=== PATIENT | female | born 1935 | race Caucasian/White ===

== ENCOUNTER → 2016-12-13 | Day surgery (SDC) | payer OTHER ==
[2016-10-25 09:27] VITALS: BMI 36.0
[2016-11-29 09:02] VITALS: BMI 36.0
[~2016-12-13] VITALS: Ht 157.5 cm; Wt 80.5 kg
[~2016-12-13] MED LIST: ACET325T96 PO; ALLO100T PO; APR/25 PO; BELLADONNA/OPIUM 60 MG SUPP PR ONE; BELLADONNA/OPIUM SUPP 60 MG SUPP PR ONE; BISA10SU5 RE; CALCTAB7 PO; CITA10TA4 PO; CRAN1CAP15 PO; DEXAMETHASONE SOD INJ 4 MG/ML VIAL ONE; DOCU-94 PO; FENTANYL CITRATE INJ 50 MCG/1 ML 2 ML VIAL IV PRN; FENTANYL CITRATE INJ 50 MCG/1 ML 2 ML VIAL ONE; FURO-85 PO; GENTAMICIN INJ 320 MG in DEXTROSE 5% 100ML 100 ML IV SCH; GLIP5TAB11 PO; LACTATED RINGER'S 1000ML 1,000 ML IV PRN; LACTATED RINGER'S 1000ML 1,000 ML IV SCH; LIDOCAINE HCL 2% 2 ML VIAL (20MG/ML) ONE; LSN20 PO; MAGN400T5 PO; MENTOIN TOP; METO-551 PO; MIDAZOLAM HCL 1 MG/ML 2ML VIAL ONE; ONDANSETRON INJ 2 MG/ML 2 ML VIAL IV PRN; ONDANSETRON INJ 2 MG/ML 2 ML VIAL ONE; OXGN; OXYC1CAP5 PO; PANT40TA PO; PHEN-775 PO; PROPOFOL IV EMULSION 10 MG/ML 20 ML VIAL IV ONE; RRALBUT083 INH; TAMS0.4C38 PO; VANCOMYCIN INJ 1,250 MG in SODIUM CHLORIDE 0.9% 250ML 250 ML IV SCH
[2016-12-13 07:56] VITALS: BP 140/68; PULSE 76; TEMP 37.1; O2SAT 93; Ht 157.5 cm; Wt 80.5 kg
--- NOTE | 2016-12-13 09:08 | History & Physical Bridge Note ---
H&P Re-Evaluation Bridge Note: I have examined the patient, reviewed the History & Physical and in the interval since the performance of the History & Physical I have noted the following changes of clinical significance: No changes noted
--- NOTE | 2016-12-13 10:57 | [facility] Operative Report ---
Operative Report Operative Date Dec 13, 2016. Pre-Operative Diagnosis Infected right renal stones with history of sepsis Post-Operative Diagnosis same Procedure(s) Performed cysto, right ureteroscopy laser lithotripsy basket stone extraction stent exchange Surgeon Dr. Tsering Royal All Source Collection Manager Surgeon(s) None Estimated Blood Loss 1mL Findings faintly radio-opaque very soft renal stones Fluids 500mL Specimens Permanent specimens A: Right renal stone fragments for analysis Drains 6 fr 24 centimeter double J stent Anesthesia LMA Complication(s) None Disposition Recovery Room / PACU Indications episodes of recurring sepsis from infected right renal stones Description of Procedure Patient was given general anesthesia (LMA) and placed in lithotomy position. Her genitals were prepped and draped in sterile fashion. Time out held with team. I placed a 22 fr rigid cystoscope to bladder. She has moderate cystocele. The urethra is unremarkable. The urine is cloudy consistent with her chronic infection. The stent is lightly encrusted and darkly stained. The UOs are normal. I grasped stent tip and withdrew to meatus. I amputated the distal 4 inches and passed a stiff wire up the stent to the right kidney. I removed stent and found it to be completely removed. I then placed a dual lumen and a second wire. I placed a 12/14 28 centimeter ureteral access sheath easily. I then used a flexible ureteroscope to laser the renal stones into dust. They were very soft consistent with infection stone. 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 I slowly withdrew scope and sheath and found ureter to be stone free and uninjured. I placed a 24 centimeter 6 Fr double J stent easily. I left bladder empty and concluded case. I placed a belladonna and opium suppository for post-op pain. He transferred to recovery under my escort, in stable condition. 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 Any exceptions are noted below.
--- NOTE | 2016-12-13 11:01 | Discharge Instructions ---
Discharge Instructions Date of Service Dec 13, 2016. Admission Reason for Admission: Kidney Stone and infection Discharge Discharge Diagnosis / Problem: infected right kidney stones Discharge Goals Goal(s): Improve disease control Activity Recommendations Activity Limitations: resume your previous activity Lifting Limitations: none Exercise/Sports Limitations: none Shower/Bathe: no limitations Driving or Machine Use: resume 1 day after discharge . Instructions / Follow-Up Instructions / Follow-Up urine may be bloody for several days pain at the right kidney and at the bladder is to be expected stent will be removed in about one week at [facility] office Discharge Diet Recommended Diet: Diabetes Type 2 Diet Fluid Restriction: None Procedures Procedures Performed: Cystoscopy, Right Ureteroscopy, Laser Lithotripsy - Basket Stone Extraction; Stent Exchange Pending Studies Studies pending at discharge: no Medical Emergencies . Who to Call and When: Medical Emergencies: If at any time you feel your situation is an emergency, please call 911 immediately. . Non-Emergent Contact Non-Emergency issues call your: Urologist ([phone]) Call Non-Emergent contact if: temperature is above 100.5 . . "Provider Documentation" section prepared by Tsering Royal. VTE Core Measure Inpt VTE Proph given/why not?: SCD's [place] Drug Monitoring Program Search Results: patient reviewed within database, no issues identified
--- NOTE | 2016-12-13 11:18 | DIAGNOSTIC IMAGING REPORT ---
KUB HISTORY: RIGHT LASER LITHOTRIPSY STENT FLUOROSCOPY TIME: 19 seconds. FINDINGS: 3 fluoroscopic spot images were submitted for review. Initial images demonstrate a guidewire within the proximal right ureter. The final image demonstrates the distal aspect of the right ureteral stent which appears be in good position. IMPRESSION: Fluoroscopy provided for right ureteral stent placement.. Electronically signed by: Bebeto Layton M.D. 12/13/2016 11:16 AM Dictated Date/Time: 12/13/2016 11:15 AM
--- NOTE | 2016-12-13 11:29 | Anesthesiology Progress Note ---
Anesthesia Post Op Note Date & Time Dec 13, 2016 at 11:29 Vital Signs Pain Intensity: 0 Vital Signs Past 12 Hours Date Time Temp Pulse Resp B/P Pulse Ox O2 Delivery O2 Flow Rate FiO2 12/13/16 11:15 81 24 126/60 99 Mask 10 12/13/16 11:05 82 24 147/70 98 Mask 10 12/13/16 10:55 36.8 81 20 147/85 98 Mask 10 12/13/16 07:56 37.1 76 22 140/68 93 Room Air Notes Mental Status: alert / awake / arousable, participated in evaluation Pt Amnestic to Procedure: Yes Nausea / Vomiting: adequately controlled Pain: adequately controlled Airway Patency, RR, SpO2: stable & adequate BP & HR: stable & adequate Hydration State: stable & adequate Anesthetic Complications: no major complications apparent Pt doing well.
[2016-12-13 11:43] VITALS: BP 121/60; PULSE 84; TEMP 36.6; O2SAT 93
[2016-12-13 12:15] VITALS: BP 116/49; PULSE 85; TEMP 36.4; O2SAT 94
[2016-12-13 12:45] VITALS: BP 98/55; PULSE 86; TEMP 36.8; O2SAT 93
== END | disposition home or self-care (01) ==
LOC: C.ACU 07:32
PROVIDERS: ATTEND Urology
DX: N20.0 Calculus of kidney (principal); N81.10 Cystocele, unspecified; N39.0 Urinary tract infection, site not specified; I12.9 Hypertensive chronic kidney disease with stage 1 through stage 4 chronic kidney disease, or unspecified chronic kidney disease; N18.3 Chronic kidney disease, stage 3 (moderate); M81.0 Age-related osteoporosis without current pathological fracture; E11.9 Type 2 diabetes mellitus without complications; R26.9 Unspecified abnormalities of gait and mobility; F33.41 Major depressive disorder, recurrent, in partial remission; Z98.890 Other specified postprocedural states

== ENCOUNTER 2018-11-12 20:24 | Inpatient (IN) ==
[2018-11-12 21:38] LABS: Basophils # (auto) 0.04 K/uL (0-0.2); Basophils % (auto) 0.2 %; Eosinophils # (auto) 0.06 K/uL (0-0.5); Eosinophils % (auto) 0.4 %; Hematocrit (blood only) 36.1 % (37-47); Hemoglobin 11.2 g/dL (12.0-16.0); Immature Granulocytes # (auto) 0.09 K/uL (0.00-0.02); Immature Granulocytes % (auto) 0.5 %; Lymphocytes % (auto) 7.7 %; Mean Corpuscular Volume 116.1 fL (80-100); Mean Platelet Volume 11.5 fL (7.4-10.4); Monocytes # (auto) 0.82 K/uL (0.11-0.59); Monocytes % (auto) 4.9 %; Neutrophils # (auto) 14.59 K/uL (1.4-6.5); Neutrophils % (auto) 86.3 %; Platelet Count 258 K/uL (130-400); RDW Coefficient of Variation 15.4 % (11.5-14.5); RDW Standard Deviation 65.3 fL (36.4-46.3); Red Blood Count 3.11 M/uL (4.2-5.4)
[2018-11-12 22:01] LABS: Alanine Aminotransferase 51 U/L (12-78); Albumin Level 3.3 gm/dl (3.4-5.0); Aspartate Aminotransferase 29 U/L (15-37); BUN Creatinine Ratio 27.4 (10-20); Blood Urea Nitrogen 53 mg/dl (7-18); Calcium 9.6 mg/dl (8.5-10.1); Carbon Dioxide 23 mmol/L (21-32); Chloride 111 mmol/L (98-107); Creatinine Clr Calc Pharmacy 23.8 ml/min; Est GFR (African American) 26.9; Est GFR (Non-African American) 23.2; Glucose 145 mg/dl (70-99); Potassium 5.2 mmol/L (3.5-5.1); Sodium 141 mmol/L (136-145)
--- NOTE | 2018-11-12 22:05 | CT Scan Report ---
CT head/brain wo con CT DOSE: HISTORY: Trauma fall TECHNIQUE: Multiaxial CT images of the head were performed without the use of intravenous contrast. A dose lowering technique was utilized adhering to the principles of ALARA. Comparison: 02/22/2015 Findings: The paranasal sinuses and mastoid air cells are clear. The calvarium and skull base are int act. The ventricles and sulci are within normal limits. There is no mass, hematoma, midline shift, or acute infarct. Age-related atrophy and chronic small vessel change. Impression: Age-related change. No acute process. The above report was generated using voice recognition software. It may contain grammatical, syntax or spelling errors. Electronically signed by: Veto Conley M.D. 11/12/2018 10:03 PM
--- NOTE | 2018-11-12 22:07 | CT Scan Report ---
CT cervical spine wo con CT DOSE: HISTORY: Trauma fall TECHNIQUE: Multiaxial CT images of the cervical spine were performed and reformatted in the sagittal and coronal plane without the use of contrast. A dose lowering technique was utilized adhering to th e principles of ALARA. COMPARISON: None. FINDINGS: Severe degenerative change throughout. Grade 1. Reversal subluxation of C5 on C6 with a grade 1 anterolisthesis of C4 and C5. This appears to be o n a degenerative basis. There is severe degenerative change of the posterior and lateral elements. IMPRESSION: Severe degenerative change. No acute process. The above report was generated using voice recognition software. It may contain grammatical, syntax or spelling errors. Electronically signed by: Veto Conley M.D. 11/12/2018 10:06 PM
[2018-11-12 22:11] LABS: Albumin Globulin Ratio 0.9 (0.9-2); Alkaline Phosphatase 109 U/L (45-117); Bilirubin,Total 0.3 mg/dl (0.2-1); Globulin 3.8 gm/dl (2.5-4.0); Total Protein 7.1 gm/dl (6.4-8.2); Troponin I < 0.015 ng/ml (0-0.045)
--- NOTE | 2018-11-12 22:11 | CT Scan Report ---
CT thoracic spine wo con CT DOSE: HISTORY: Trauma fall TECHNIQUE: Multiaxial CT images of the thoracic spine were performed and reformatted in the sagittal and coronal plane without the use of contrast. A dose lowering technique was utilized adhering to th e principles of ALARA. COMPARISON: None. FINDINGS: 1 50% compression deformity T6. 20% compression deformity T5. No evidence for retropulsion of any com ponent of the vertebral body. No evidence for bony spinal stenotic change. Considerable degenerative change throughout the remainder of the thoracic region. Degenerative change posterior elements. No acute posttraumatic abnormality of the posterior limits. IMPRESSION: 1. 50% compression deformity T6. 2. 20% compression deformity T5. 3. No significant compromise of the spinal canal or neural foramina. The above report was generated using voice recognition software. It may contain grammatical, syntax or spelling errors. Electronically signed by: Veto Conley M.D. 11/12/2018 10:10 PM
--- NOTE | 2018-11-12 22:16 | CT Scan Report ---
CT lumbar spine wo con CT DOSE: 3353.21 mGy.cm HISTORY: Trauma fall TECHNIQUE: Multiaxial CT images of the lumbar spine were performed and reformatted in the sagittal an d coronal plane without the use of contrast. A dose lowering technique was utilized adhering to the principles of ALARA. COMPARISON: None. FINDINGS: 50% compression deformity L5. 6 mm posterior displacement of the superior margin of the L5 vertebral body. Severe degenerative disc change throughout the remainder of the lumbar spine. Considerable degenerati ve changes of the posterior elements throughout. Multifactorial narrowing of spinal canal at virtually all levels. IMPRESSION: 1. 50% compression deformity L5.. 2. Moderate posterior displacement of the superior margin of the L5 vertebral body narrowing the spin al canal by 50%. 3. Severe degenerative disc change throughout all remaining components of the lumbar region. 4. Multilevel multifactorial narrowing of the spinal canal throughout. The above report was generated using voice recognition software. It may contain grammatical, syntax or spelling errors. Electronically signed by: Veto Conley M.D. 11/12/2018 10:15 PM
--- NOTE | 2018-11-12 22:21 | CT Scan Report ---
CT chest wo con CT DOSE: HISTORY: Trauma fall TECHNIQUE: Multiaxial CT images of the chest were performed without contrast. A dose lowering techni que was utilized adhering to the principles of ALARA. COMPARISON: 10/16/2014 FINDINGS: Bibasilar atelectatic change. Chronic elevation left hemidiaphragm. Tortuosity and ectasia thoracic aorta. Hiatal hernia.. No evidence pneumothorax. Compression deformities of T5 and T6 which have been described previously. IMPRESSION: 1. Hiatal hernia. 2. Bibasilar atelectatic and/or infiltrative change. 3. Stable tortuosity thoracic aorta. 4. Hiatal hernia. 5. Compression deformities of T5 and T6 which have been described previously. The above report was generated using voice recognition software. It may contain grammatical, syntax or spelling errors. Electronically signed by: Veto Conley M.D. 11/12/2018 10:20 PM
[2018-11-12 22:26] LABS: Macrocytosis Present
--- NOTE | 2018-11-12 22:26 | CT Scan Report ---
CT abd pelvis wo con CT DOSE: HISTORY: Trauma fall TECHNIQUE: Multiaxial CT images of the abdomen and pelvis were performed without contrast. A dose lo wering technique was utilized adhering to the principles of ALARA. COMPARISON STUDY: None. FINDINGS: Bibasilar atelectatic/infiltrative change. Fixed lateral hernia. Moderate cardiomegaly. Ove rall configuration of liver and spleen are unremarkable. Kidneys demonstrate nonobstructive renal oss ifications bilaterally. Perinephric spaces are unremarkable for age. No compression deformity L5. Nonobstructive bowel pattern. No free fluid within the pelvic cul-de-sac . Considerable degenerative changes of the right hip. IMPRESSION: 1. Bibasilar atelectatic/infiltrative change. 2. Bilateral nonobstructing renal calcifications. 3. No acute process within the abdomen or pelvis. 4. 50% compression deformity L5 which has been described previously. 5. 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 The above report was generated using voice recognition software. It may contain grammatical, syntax or spelling errors. Electronically signed by: Veto Conley M.D. 11/12/2018 10:25 PM
[2018-11-12] MEDS ORDERED: fentaNYL citrate 100 MCG/2 ML VIAL IV STA ×2 (22:29→23:41)
--- NOTE | 2018-11-13 01:16 | Emergency Department Note ---
Entered by Malachi Gordon acting as a scribe for Stuart Lala M.D. History of Present Illness General Chief complaint: Fall Stated complaint: knee pain Source: patient and family History of Present Illness Provider complaint: Fall Onset (ago): minute(s) Location: left and right Pain Consistency: + constant Exacerbated By: + movement Associated symptoms: + denies other symptoms (dizziness), + weakness and + other (neck pain, lower back pain, left leg pain in the knee); no rash Treatments prior to arrival: other (Fentanyl) The patient is a 83 year old female who presents to the Emergency Room with complaints of a fall. The patient's family, who was bedside, reports that the patient was using her walker and fell on standing level. The patient's family adds that she was given Fentanyl on scene. The patient denies hitting her head. The family states that the patient has been declining the past 2 weeks because her arthritis has gotten much worse. The patient's family notes that she has been taking Gabapentin for her pain, but seemed to getting worse after taking it. The patient adds that she has been taking 6 Tylenol per day. The patient complains of neck pain, lower back pain, left leg pain in the knee, and abdominal pain. The patient denies chest pain, rashes, and dizziness. Home Medications Home Medications Medication Instructions Recorded Confirmed Type acetaminophen [Tylenol] 650 mg PO Q8 11/12/18 11/12/18 History albuterol sulfate 2.5 mg INHALATION Q4 PRN 11/12/18 11/12/18 History allopurinol 100 mg PO BID 11/12/18 11/12/18 History [id number] 1 tab PO BID 11/12/18 11/12/18 History [Caltrate 600-D Plus Minerals] citalopram 10 mg PO DAILY 11/12/18 11/12/18 History cranberry conc-ascorbic acid 1 tab PO DAILY 11/12/18 11/12/18 History docusate sodium [DOK] 100 mg PO BID 11/12/18 11/12/18 History furosemide [Lasix] 20 mg PO DAILY PRN 11/12/18 11/12/18 History glipizide 2.5 mg PO BIDM 11/12/18 11/12/18 History hydralazine 25 mg PO TID 11/12/18 11/12/18 History lisinopril 20 mg PO DAILY 11/12/18 11/12/18 History magnesium oxide 400 mg PO DAILY 11/12/18 11/12/18 History metoprolol tartrate 50 mg PO BID 11/12/18 11/12/18 History pantoprazole 40 mg PO DAILY 11/12/18 11/12/18 History sulfacetamide sodium 1 drp OPR TID 11/12/18 11/12/18 History tamsulosin 0.4 mg PO DAILY 11/12/18 11/12/18 History tramadol 50 mg PO Q12 PRN 11/12/18 11/12/18 History triamcinolone acetonide 1 applic TOPICAL BID PRN 11/12/18 11/12/18 History Allergies Allergy/AdvReac Type Severity Reaction Status Date / Time No Known Allergies Allergy Verified 11/12/18 23:35 Past Med/Surg History Medical History Diabetes (Chronic) Hypertension (Chronic) Social History Feels Safe at Home: Yes Smoking Status: Never smoker Review of Systems See HPI for pertinent positives & negatives. and A total of 10 systems reviewed and were otherwise negative Physical Exam Vital Signs Vital Signs - 24 hr 11/12/18 20:40 11/12/18 21:16 11/12/18 21:30 Temperature 36.6 C Temperature Source Oral Sepsis Recent Fever Within 48 Hours No Sepsis New/Unexplained Change in Mental Status No Sepsis Action Taken by Nursing No Action Required Pulse Rate 83 81 Pulse Rate [Apical] 82 Respiratory Rate 20 26 H 28 H Respiratory Effort / Characteristics Respiratory Depth Normal Respiratory Pattern Blood Pressure 162/85 H 131/65 Blood Pressure [Right Arm] 136/72 Blood Pressure Mean 110 87 Blood Pressure Mean [Right Arm] 93 Blood Pressure Position [Right Arm] Pulse Oximetry 95 95 96 Oxygen Delivery Method Nasal Cannula Nasal Cannula Nasal Cannula Oxygen Flow Rate 4 4 4 11/12/18 22:31 11/12/18 22:55 11/12/18 23:46 Temperature Temperature Source Sepsis Recent Fever Within 48 Hours Sepsis New/Unexplained Change in Mental Status Sepsis Action Taken by Nursing Pulse Rate 145 H Pulse Rate [Apical] 88 Respiratory Rate 37 H 16 Respiratory Effort / Characteristics Non-Labored Spontaneous Respiratory Depth Normal Respiratory Pattern Regular Blood Pressure 125/66 Blood Pressure [Right Arm] 115/69 Blood Pressure Mean 85 Blood Pressure Mean [Right Arm] 84 Blood Pressure Position [Right Arm] Lying Pulse Oximetry 86 L 94 Oxygen Delivery Method Nasal Cannula Nasal Cannula Oxygen Flow Rate 0 2 11/13/18 01:31 Temperature Temperature Source Sepsis Recent Fever Within 48 Hours Sepsis New/Unexplained Change in Mental Status Sepsis Action Taken by Nursing Pulse Rate Pulse Rate [Apical] 85 Respiratory Rate 22 Respiratory Effort / Characteristics Non-Labored Respiratory Depth Normal Respiratory Pattern Regular Blood Pressure Blood Pressure [Right Arm] 116/60 Blood Pressure Mean Blood Pressure Mean [Right Arm] 78 Blood Pressure Position [Right Arm] Lying Pulse Oximetry 93 Oxygen Delivery Method Nasal Cannula Oxygen Flow Rate 2 GENERAL: Awake, alert, in C collar. HENT: Normocephalic, atraumatic. EYES: Normal conjunctiva. Sclera non-icteric. NECK: Supple. No nuchal rigidity. RESPIRATORY: Clear to auscultation. No wheezes. Normal respiratory effort. CARDIAC: Normal rate. Normal rhythm. Extremities warm and well perfused. GI: Soft, non-distended. Minimal tenderness to palpation. No rebound or guarding. RECTAL: Deferred. MUSCULOSKELETAL: Atraumatic. Chest examination reveals no tenderness. Some mild lower back tenderness LOWER EXTREMITIES: Calves are equal size bilaterally and non-tender. No edema. Left lower extremity splinted. Left knee pain with palpation, bilateral DP pulses. NEURO: Normal sensorium. No sensory or motor deficits noted in upper or lower extrmeities. No facial droop. SKIN: Warm and dry. No rash or jaundice noted. Course 2039: Past medical records reviewed. The patient was evaluated in room B02, and a complete history and physical examination were performed. 2347: I reviewed the patient's case with Dr. Ocampo. He recommends no acute interventions at this time. Will discuss with Dr. Bloom given other femur injury. Per Dr. Bloom Knee immbolizer and CT of L knee to be done. 0016: I reviewed the patient's case with Dr. Woods. He will evaluate the patient for further management. Consultations Consultation #1: 2347: I reviewed the patient's case with Dr. Jacoby Odonnell. He recommends no acute interventions at this time. Will discuss with Dr. Bloom given other femur injury. Time: 23:47 Consultation #2: [id number]: I reviewed the patient's case with Dr. Woods. He will evaluate the patient for further management. Time: 00:16 Administered Medications Discontinued Medications Fentanyl Citrate (Fentanyl Citrate) 50 mcg IV NOW STA Stop: 11/12/18 22:30 Last Admin: 11/12/18 22:50 Dose: 50 mcg Fentanyl Citrate (Fentanyl Citrate) 50 mcg IV NOW STA Stop: 11/12/18 23:42 Last Admin: 11/12/18 23:49 Dose: 50 mcg Medical Decision Making Differential Diagnosis Differential Diagnosis: Intracranial injury, cervical spine injury, intrathoracic injury, intra- abdominal injury, musculoskeletal injury,acute coronary syndrome, myocardial infarction, CVA, TIA, anemia, infection, pneumonia, UTI, pyelonephritis, poor nutrition, dehydration, electrolyte disturbance,hypoglycemia. Medical Records Attestation: I reviewed the patient's medical records. Home Medications Current Medication List: was personally reviewed by me Laboratory Data Attestation: I reviewed the patient's lab results. Result diagrams: 11/12/18 21:19 11/12/18 21:19 Lab Results 11/12/18 11/12/18 Range/Units 21:19 21:19 WBC 16.90 H (4.8-10.8) K/uL RBC 3.11 L (4.2-5.4) M/uL Hgb 11.2 L (12.0-16.0) g/dL Hct 36.1 L (37-47) % MCV 116.1 H (80-100) fL MCH 36.0 H (25-34) pg MCHC 31.0 L (32-36) g/dL RDW Std Deviation 65.3 H (36.4-46.3) fL RDW Coeff of Devin 15.4 H (11.5-14.5) % Plt Count 258 (130-400) K/uL MPV 11.5 H (7.4-10.4) fL Immature Gran % (Auto) 0.5 % Neut % (Auto) 86.3 % Lymph % (Auto) 7.7 % Gray % (Auto) 4.9 % Eos % (Auto) 0.4 % Baso % (Auto) 0.2 % Immature Gran # (Auto) 0.09 H (0.00-0.02) K/uL Neut # (Auto) 14.59 H (1.4-6.5) K/uL Lymph # (Auto) 1.30 (1.2-3.4) K/uL Gray # (Auto) 0.82 H (0.11-0.59) K/uL Eos # (Auto) 0.06 (0-0.5) K/uL Baso # (Auto) 0.04 (0-0.2) K/uL Macrocytosis Present Sodium 141 (136-145) mmol/L Potassium 5.2 H (3.5-5.1) mmol/L Chloride 111 H (98-107) mmol/L Carbon Dioxide 23 (21-32) mmol/L Anion Gap 7.0 (3-11) BUN 53 H (7-18) mg/dl Creatinine 1.94 H (0.6-1.2) mg/dl Est Cr Clr Drug Dosing 23.8 ml/min Est GFR ( Amer) 26.9 Est GFR (Non-Af Amer) 23.2 BUN/Creatinine Ratio 27.4 H (10-20) Glucose 145 H (70-99) mg/dl Calcium 9.6 (8.5-10.1) mg/dl Total Bilirubin 0.3 (0.2-1) mg/dl AST 29 (15-37) U/L ALT 51 (12-78) U/L Alkaline Phosphatase 109 (45-117) U/L Troponin I < 0.015 (0-0.045) ng/ml Total Protein 7.1 (6.4-8.2) gm/dl Albumin 3.3 L (3.4-5.0) gm/dl Globulin 3.8 (2.5-4.0) gm/dl Albumin/Globulin Ratio 0.9 (0.9-2) TSH 0.578 (0.300-4.500) uIu/ml Imaging Data Attestation: I personally reviewed and interpreted this imaging study as follows : My Impression: 3 view Left shoulder: no acute fracture or discoloration 1 view CXR: no pneumothorax, basilar atelectasis 1 view Pelvis: no pelvis or hip fracture, Right hip avascular necrosis Left knee: distal femur fracture Left femur: distal femur fracture Left tibia/fibula: no fracture Left ankle: No fracture/ dislocation, degenerative changes Radiologist's Impression: Radiology results as stated below per my review and the radiologist's interpretation: CT thoracic spine wo con CT DOSE: HISTORY: Trauma fall TECHNIQUE: Multiaxial CT images of the thoracic spine were performed and reformatted in the sagittal and coronal plane without the use of contrast. A dose lowering technique was utilized adhering to the principles of ALARA. COMPARISON: None. FINDINGS: 1 50% compression deformity T6. 20% compression deformity T5. No evidence for retropulsion of any component of the vertebral body. No evidence for bony spinal stenotic change. Considerable degenerative change throughout the remainder of the thoracic region. Degenerative change posterior elements. No acute posttraumatic abnormality of the posterior limits. IMPRESSION: 1. 50% compression deformity T6. 2. 20% compression deformity T5. 3. No significant compromise of the spinal canal or neural foramina. The above report was generated using voice recognition software. It may contain grammatical, syntax or spelling errors. Electronically signed by: Veto Conley M.D. 11/12/2018 10:[address] lumbar spine wo con CT DOSE: 3353.21 mGy.cm HISTORY: Trauma fall TECHNIQUE: Multiaxial CT images of the lumbar spine were performed and reformatted in the sagittal and coronal plane without the use of contrast. A dose lowering technique was utilized adhering to the principles of ALARA. COMPARISON: None. FINDINGS: 50% compression deformity L5. 6 mm posterior displacement of the superior margin of the L5 vertebral body. Severe degenerative disc change throughout the remainder of the lumbar spine. Considerable degenerative changes of the posterior elements throughout. Multifactorial narrowing of spinal canal at virtually all levels. IMPRESSION: 1. 50% compression deformity L5.. 2. Moderate posterior displacement of the superior margin of the L5 vertebral body narrowing the spinal canal by 50%. 3. Severe degenerative disc change throughout all remaining components of the lumbar region. 4. Multilevel multifactorial narrowing of the spinal canal throughout. The above report was generated using voice recognition software. It may contain grammatical, syntax or spelling errors. Electronically signed by: Veto Conley M.D. 11/12/2018 10:[address] head/brain wo con CT DOSE: HISTORY: Trauma fall TECHNIQUE: Multiaxial CT images of the head were performed without the use of intravenous contrast. A dose lowering technique was utilized adhering to the principles of ALARA. Comparison: 02/22/2015 Findings: The paranasal sinuses and mastoid air cells are clear. The calvarium and skull base are intact. The ventricles and sulci are within normal limits. There is no mass, hematoma, midline shift, or acute infarct. Age-related atrophy and chronic small vessel change. Impression: Age-related change. No acute process. The above report was generated using voice recognition software. It may contain grammatical, syntax or spelling errors. Electronically signed by: Veto Conley M.D. 11/12/2018 10:[address] chest wo con CT DOSE: HISTORY: Trauma fall TECHNIQUE: Multiaxial CT images of the chest were performed without contrast. A dose lowering technique was utilized adhering to the principles of ALARA. COMPARISON: 10/16/2014 FINDINGS: Bibasilar atelectatic change. Chronic elevation left hemidiaphragm. Tortuosity and ectasia thoracic aorta. Hiatal hernia.. No evidence pneumothorax. Compression deformities of T5 and T6 which have been described previously. IMPRESSION: 1. Hiatal hernia. 2. Bibasilar atelectatic and/or infiltrative change. 3. Stable tortuosity thoracic aorta. 4. Hiatal hernia. 5. Compression deformities of T5 and T6 which have been described previously. The above report was generated using voice recognition software. It may contain grammatical, syntax or spelling errors. Electronically signed by: Veto Conley M.D. 11/12/2018 10:[address] cervical spine wo con CT DOSE: HISTORY: Trauma fall TECHNIQUE: Multiaxial CT images of the cervical spine were performed and reformatted in the sagittal and coronal plane without the use of contrast. A dose lowering technique was utilized adhering to the principles of ALARA. COMPARISON: None. FINDINGS: Severe degenerative change throughout. Grade 1. Reversal subluxation of C5 on C6 with a grade 1 anterolisthesis of C4 and C5. This appears to be on a degenerative basis. There is severe degenerative change of the posterior and lateral elements. IMPRESSION: Severe degenerative change. No acute process. The above report was generated using voice recognition software. It may contain grammatical, syntax or spelling errors. Electronically signed by: Veto Conley M.D. 11/12/2018 10:[address] abd pelvis wo con CT DOSE: HISTORY: Trauma fall TECHNIQUE: Multiaxial CT images of the abdomen and pelvis were performed without contrast. A dose lowering technique was utilized adhering to the principles of ALARA. COMPARISON STUDY: None. FINDINGS: Bibasilar atelectatic/infiltrative change. Fixed lateral hernia. Moderate cardiomegaly. Overall configuration of liver and spleen are unremarkable. Kidneys demonstrate nonobstructive renal ossifications bilaterally. Perinephric spaces are unremarkable for age. No compression deformity L5. Nonobstructive bowel pattern. No free fluid within the pelvic cul-de-sac. Considerable degenerative changes of the right hip. IMPRESSION: 1. Bibasilar atelectatic/infiltrative change. 2. Bilateral nonobstructing renal calcifications. 3. No acute process within the abdomen or pelvis. 4. 50% compression deformity L5 which has been described previously. 5. 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 The above report was generated using voice recognition software. It may contain grammatical, syntax or spelling errors. Electronically signed by: Veto Conley M.D. 11/12/2018 10:[address] left Knee: Acute complex fracture of the distal femur metaphysis and mild fragment displacement posteriorly. Artholasty hardware is grossly intact. The visualized proximal tibia and fibula have intact appearance. Soft tissue edema. Dr. Bebeto Fernandez MD ([facility]) ECG Data Attestation: I personally reviewed and interpreted this ECG as follows: Indication: other (fall) Rate (beats per minute): 74 Rhythm: normal sinus Findings: + other (normal axis); no ST depression and no ST elevation Blood Pressure Blood Pressure Findings: Normal blood pressure Head Trauma GCS Score: 15 MDM Narrative 81-year-old female with a history of falls, hypertension, diabetes presenting with weakness and fall. Evidently the last several weeks worsening diffuse arthritic pain. Today with her walker tripped on a step at home and fell. Significant new right knee pain along with pain of the neck lower back present. Denies dizziness or presyncopal symptoms. Difficulty tolerating opioids although was given some fentanyl prior to arrival. Has been using Tylenol and increase gabapentin from the PCP without significant improvement. Lives at home with and usually uses a walker. CT imaging and x-rays were obtained as above. No lacerations grossly identified. No acute intracranial and only cervical spine injury was noted. Collar was cleared. Evidence of T5 and 6 compression injuries as well as a 50% L5 compression deformity with some displacement and spinal canal narrowing. No acute chest or abdomen pathology noted. There is a basic laboratory studies do show a leukocytosis and renal insufficiency. Limited prior laboratory studies however this may be new. Urinalysis still pending. Given multiple additional doses of fentanyl for pain control which she is tolerating okay. Significant left distal femur fracture around her prior prosthetic knee replacement. Discussed with orthopedics who recommended CT and immobilizing the knee. Again she has intact neurovascular status in her lower extremities. Given these injuries will require admission for pain control and further orthopedic management. [facility] Patient and family were made aware of findings. Impression & Plan Closed femur fracture, Closed fracture of body of lumbar vertebra, Compression fracture of thoracic vertebra Discharge Plan Visit Data Chief Complaint: Fall Stated Complaint: knee pain ED Provider: Stuart Lala Discharge Problem: Closed femur fracture, Closed fracture of body of lumbar vertebra, Compression fracture of thoracic vertebra Patient Disposition: Admitted As Inpatient Condition: Fair Forms Stand Alone Forms: [facility] Prescriptions Prescriptions: No Action albuterol sulfate 2.5 mg /3 mL (0.083 %) Solution For Nebulization 2.5 mg INHALATION Q4 PRN (Reason: Shortness Of Breath) RF: 0 citalopram 10 mg Tablet 10 mg PO DAILY RF: 0 lisinopril 20 mg Tablet 20 mg PO DAILY RF: 0 hydralazine 25 mg Tablet 25 mg PO TID RF: 0 cranberry conc-ascorbic acid 140-100 mg Capsule 1 tab PO DAILY RF: 0 allopurinol 100 mg Tablet 100 mg PO BID RF: 0 tramadol 50 mg Tablet 50 mg PO Q12 PRN (Reason: Pain) RF: 0 triamcinolone acetonide 0.1 % Cream 1 applic TOPICAL BID PRN (Reason: LOWER EXTREMITIES) RF: 0 tamsulosin 0.4 mg Capsule 0.4 mg PO DAILY RF: 0 sulfacetamide sodium 10 % Drops 1 drp OPR TID RF: 0 pantoprazole 40 mg Tablet,Delayed Release (Dr/Ec) 40 mg PO DAILY RF: 0 metoprolol tartrate 50 mg Tablet 50 mg PO BID RF: 0 docusate sodium [DOK] 100 mg Capsule 100 mg PO BID RF: 0 furosemide [Lasix] 20 mg Tablet 20 mg PO DAILY PRN (Reason: LEG SWELLING, WT GAIN) RF: 0 glipizide 5 mg Tablet 2.5 mg PO BIDM RF: 0 acetaminophen [Tylenol] 325 mg Capsule 650 mg PO Q8 RF: 0 [id number] [Caltrate 600-D Plus Minerals] 600 mg calcium- 800 unit-50 mg Tablet 1 tab PO BID RF: 0 magnesium oxide 400 mg magnesium Tablet 400 mg PO DAILY RF: 0 Referrals Referrals: Jonathan Marshall DO [Primary Care Provider] - The scribe's documentation has been prepared under my direction and personally reviewed by me in its entirety. I confirm that the note above accurately reflects all work, treatment, procedures, and medical decision making performed by me.
--- NOTE | 2018-11-13 02:20 | History and Physical Report ---
DATE OF ADMISSION: 11/13/2018 CHIEF COMPLAINT: Status post fall, back pain, and left knee pain. HISTORY OF PRESENT ILLNESS: This is an 83-year-old female with past medical history significant for diabetes, Charcot foot with diabetes, hiatal hernia, seasonal allergic rhinitis, hypertension, constipation, prolapse of vaginal suggs, history of renal stone, history of recurrent UTI, history of osteoporosis,generalized osteoarthritis, chronic back pain, anemia of chronic kidney disease, chronic kidney disease stage IV, generalized weakness, and ambulatory dysfunction. Lives with her . Fell a couple of weeks ago. Complaining of back pain. At her PCP, x-rays were done, they were unremarkable, but this was not getting better, the pain was getting severe. She was started on gabapentin, but that was not helping and today again she fell on the left side and she was brought in here and imaging studies shows acute complex fracture of the distal femur on the left side and T4, T5, and L5 compression fractures. The patient does have significant pain. Denies any headaches. No blurred visions. Somewhat hard of hearing. No runny nose, no sore throat, no difficulty swallowing, no cough, no recent fever, no chills, no chest pain, no shortness of breath, no nausea, no vomiting, no abdominal pain. Normal bowel and bladder movements. Appetite is okay. Ambulates with a walker, but ambulatory status is very poor. Before the fall itself, she used to ambulate very slowly. ALLERGIES: No known drug allergies. PAST MEDICAL HISTORY: As mentioned above. PAST SURGICAL HISTORY: Both knee arthroplasty, cystoscopy with lithotripsy, EGDs, oophorectomy, cystocele repair, inguinal hernia repair, total abdominal hysterectomy with removal of tubes. MEDICATIONS: The patient is on gabapentin 100 mg p.o. b.i.d., allopurinol 100 mg p.o. b.i.d., metoprolol 50 mg p.o. b.i.d., Lasix 20 mg p.o. daily p.r.n. for leg swelling, Celexa 10 mg p.o. daily, Protonix 40 mg p.o. daily, hydralazine 25 mg p.o. t.i.d., lisinopril 20 mg p.o. daily, glipizide 2.5 mg p.o. b.i.d., Tylenol 650 mg p.o. q. 8 hours p.r.n., cranberry 1 capsule daily, Flomax 0.4 mg 1 capsule daily, magnesium oxide 400 mg p.o. daily, albuterol nebulization every 4 hours p.r.n., calcium carbonate 1 tablet b.i.d. FAMILY HISTORY: Significant for mother had diabetes, father had stomach ulcer. SOCIAL HISTORY: and lives with her . No smoke history, no alcohol history, no drug use. REVIEW OF SYMPTOMS: As per HPI. Rest of the review of systems is negative. PHYSICAL EXAMINATION: GENERAL: The patient is old and frail, not in acute distress. VITAL SIGNS: Temperature 36.6, pulse 88, respiratory rate 16, blood pressure 115/69, oxygen 94% on 2 liters. HEENT: No pallor, no icterus. Pupils equal, round, and reactive to light. NECK: No JVD, no neck masses, no carotid bruits. CARDIOVASCULAR: S1, S2 heard, regular rate and rhythm, no murmur, no gallop. RESPIRATORY SYSTEM: Normal AP diameter. No accessory muscle use. No wheezing, no crackles. ABDOMEN: Soft, bowel sounds present. Nontender. No distention. CENTRAL NERVOUS SYSTEM: Cranial nerves II through XII intact, nonfocal. EXTREMITIES: Mild pedal edema present. Right lower extremity, short and externally rotated which seems to be chronic. Mild swelling around the left knee region. LABORATORY DATA: WBC 16, hemoglobin 11.2, hematocrit 36.1, platelets 258. Sodium 141, potassium 5.2, chloride 111, BUN 53, creatinine 1.94, serum glucose 145, calcium 9.6, total bilirubin 0.3, AST 29, ALT 51, alkaline phosphatase 109. Troponin I less than 0.015. TSH 0.5. IMAGING DATA: Thoracic spine CT, 50% compression deformity of T6, 25% compression deformity of T5. Lumbar spine CT, 50% compression deformity at L5, moderate posterior displacement of the superior margin of the L5 vertebral body narrowing the spinal canal by 50%. CT of the head, no acute process seen. Chest CT, no acute findings. Cervical spine CT, no acute process. CT of the abdomen and pelvis, bibasilar atelectatic changes, bilateral nonobstructing renal calcifications. No acute process within the abdomen or pelvis. A 50% compression deformity at L5. CT of the left knee, preliminary report, acute compression fracture with distal femur metaphysis with mild fragment displacement posteriorly. EKG: Normal sinus rhythm at the rate of 74, no acute changes seen. ASSESSMENT AND PLAN: This is an 83-year-old female who presents with fall and T4, T5, and L5 compression fractures and acute left distal femur fracture. 1. Mechanical fall 2 weeks ago and fell on the back and complained of back pain . Xrays done were unremarkable.And fell again today and imaging studies shows has acute complex left distal femur fracture and T5, T6 and L5 compression fractures. We will admit to medical floor. Keep her n.p.o., IV fluids, IV pain medication p.r.n., IV antiemetics prn. ER notified orthopedics, will consult orthopedics for evaluation in a.m. The patient's EKG and chest x-ray are okay, but ambulatory status is not that great. Because of age and comorbid conditions Would be at moderate risk to proceed with any procedures . 2. History of diabetes. Hold her home p.o. medication. The patient will be placed on insulin sliding scale. 3. History of gout. Continue allopurinol. 4. History of hypertension. Continue Lopressor. Hold the lisinopril because of hyperkalemia, continue hydralazine. Monitor the blood pressure. 5. History of chronic kidney disease stage IV. Baseline creatinine around 2, presents with a creatinine of 1.94. Follow the labs. 6. Hyperkalemia. Hold the lisinopril. Potassium of 5.2. Outpatient labs also potassium on the higher side. Because of kidney disease and hyperkalemia , we will consult nephrology. When patient starts on diet, we will place on low potassium diet. 7. Anemia of chronic kidney disease, . Hemoglobin is 11.2. Follow the labs. 8. General osteoarthritis, on tramadol p.r.n. 9. History of kidney stones and history of recurrent urinary tract infections, on Flomax. 10. History of depression, on Celexa. 11. History of gastroesophageal reflux disease, on Protonix. 12. Deep venous thrombosis prophylaxis, as per orthopedics. 13. Disposition, closely monitor in the med/surg floor. 14. Code status. The family is okay with intubation, but no CPR or shocks. Social service to help with discharge planning. [facility]
[2018-11-13] MEDS ORDERED: ONDANSETRON INJ 2 MG/ML 2 ML VIAL IV PRN (02:39)
[2018-11-13] MEDS ORDERED: ALBUTEROL 0.083% NEBU SOLN 3 ML VIAL INH PRN (02:39)
[2018-11-13] MEDS ORDERED: TRIAMCINOLONE ACET 0.1% CR 15 GM TUBE TOP PRN (02:39)
[2018-11-13] MEDS ORDERED: TRAMADOL HCL 50 MG TABLET PO PRN (02:39)
[2018-11-13] MEDS ORDERED: ALUMINUM/MAGNESIUM SUSP 30 ML UDC PO PRN (02:39)
[2018-11-13] MEDS ORDERED: FUROSEMIDE 20 MG TAB PO PRN (02:39)
[2018-11-13] MEDS ORDERED: DEXTROSE 50% 50 ML SYRINGE IV PRN (02:49)
[2018-11-13] MEDS ORDERED: CARBOHYDRATES FOR HYPOGLYCEMIA PO PRN (02:49)
[2018-11-13] MEDS ORDERED: GLUCAGON FOR INJ 1 MG VIAL IM PRN (02:49)
[2018-11-13] MEDS ORDERED: GLUCOSE 40% GEL 15 GM TUBE PO PRN (02:49)
[2018-11-13] MEDS ORDERED: GLUCOSE 10 TABS/TUBE PO PRN (02:49)
[2018-11-13] MEDS ORDERED: SODIUM POLYSTYRENE SULFONATE 15G/60ML SUSP PO ONE (03:00)
[2018-11-13] MEDS: SODIUM CHLORIDE 0.9% 1000ML 1,000 ML IV SCH ×2 (04:05→17:03)
[2018-11-13] MEDS: HYDROmorphone INJ 0.5 MG/0.5 ML SYR IV PRN ×4 (04:05→20:18)
[2018-11-13] MEDS ORDERED: Nursing to Pharmacy Communication ONE (04:13)
[2018-11-13 04:32] LABS: Appearance Urine Cloudy (Clear); Bacteria Urine Automated 4+ (Negative); Bilirubin Urine Negative (Negative); Blood Urine Negative (Negative); Cast Urine Automated 0 /lpf (0-5); Color Urine Yellow; Epithelial Cell Urine Auto 20-30 /lpf (0-5); Glucose Urine UA Negative (Negative); Ketones Urine Trace (Negative); Leukocyte Esterase Urine 3+ (Negative); Nitrite Urine Negative (Negative); Protein Urine 1+ (Negative); RBC Urine Automated 0-4 /hpf (0-4); Urobilinogen Urine Negative (Negative); WBC Urine Automated >30 /hpf (0-5)
[2018-11-13 05:46] LABS: Basophils # (auto) 0.02 K/uL (0-0.2); Basophils % (auto) 0.1 %; Hematocrit (blood only) 29.6 % (37-47); Hemoglobin 9.2 g/dL (12.0-16.0); Immature Granulocytes # (auto) 0.12 K/uL (0.00-0.02); Immature Granulocytes % (auto) 0.7 %; Lymphocytes # (auto) 1.41 K/uL (1.2-3.4); Lymphocytes % (auto) 8.1 %; Mean Corpuscular Hgb Conc 31.1 g/dL (32-36); Mean Corpuscular Volume 115.2 fL (80-100); Mean Platelet Volume 11.5 fL (7.4-10.4); Monocytes # (auto) 1.15 K/uL (0.11-0.59); Monocytes % (auto) 6.6 %; Neutrophils # (auto) 14.75 K/uL (1.4-6.5); Neutrophils % (auto) 84.5 %; Platelet Count 259 K/uL (130-400); RDW Coefficient of Variation 15.3 % (11.5-14.5); RDW Standard Deviation 63.9 fL (36.4-46.3); Red Blood Count 2.57 M/uL (4.2-5.4); White Blood Count 17.45 K/uL (4.8-10.8)
[2018-11-13] MEDS: INSULIN ASPART 100 UNITS/ML 3 ML PEN SC SCH ×4 (06:04→21:28)
[2018-11-13] MEDS: ACETAMINOPHEN 325 MG TAB PO PRN ×3 (06:05→21:39)
[2018-11-13 06:07] LABS: Macrocytosis Present
[2018-11-13 06:17] LABS: BUN Creatinine Ratio 27.4 (10-20); Calcium 9.3 mg/dl (8.5-10.1); Creatinine Clr Calc Pharmacy 21.8 ml/min; Est GFR (African American) 24.2; Est GFR (Non-African American) 20.8; Magnesium 2.5 mg/dl (1.8-2.4); Potassium 5.5 mmol/L (3.5-5.1)
[2018-11-13 06:22] LABS: Estimated Average Glucose 126 mg/dl
[2018-11-13] MEDS ORDERED: SODIUM POLYSTYRENE SULFONATE 15G/60ML SUSP PO STA ×2 (06:23→06:45)
--- NOTE | 2018-11-13 06:38 | XRay Report ---
XR tibia fibula LT 2V CLINICAL HISTORY: Left knee pain status post trauma COMPARISON: None. DISCUSSION: The bones are osteopenic. There are postsurgical changes of a total left knee arthroplast y. There is a periprosthetic fracture of the distal femur. Scattered vascular and cutaneous calcifica tions are present within the calf. IMPRESSION: Periprosthetic fracture of the distal femur. Electronically signed by: Rodrigo Snell M.D. 11/13/2018 6:37 AM
--- NOTE | 2018-11-13 06:40 | XRay Report ---
XR chest 1V portable CLINICAL HISTORY: weakness TRAUMA. FALL. COMPARISON STUDY: 02/14/2015 FINDINGS: The heart is enlarged. There are low lung volumes with hypoventilatory changes the lung bas es. There is persistent elevation left hemidiaphragm. There is persistent mediastinal widening. There is no acute parenchymal consolidation. Arthritic changes are present within the shoulders.[ IMPRESSION: 1. Stable cardiomegaly and mediastinal fullness 2. Low lung volumes with hypoventilatory changes at the lung bases 3. Stable elevation of the left hemidiaphragm. Electronically signed by: Rodrigo Snell M.D. 11/13/2018 6:39 AM
--- NOTE | 2018-11-13 06:41 | XRay Report ---
XR pelvis 1-2V routine CLINICAL HISTORY: Pain status post trauma COMPARISON: None. DISCUSSION: The bones are osteopenic. There is a lumbar dextroscoliosis. Advanced degenerative change s are present within the lumbar spine. There is a chronic right hip deformity with secondary advanced osteoarthritic change. No acute fractures are visualized. IMPRESSION: No acute fractures identified. Electronically signed by: Rodrigo Snell M.D. 11/13/2018 6:40 AM
--- NOTE | 2018-11-13 06:54 | CT Scan Report ---
CT knee LT wo con CT DOSE: 256.79 mGy.cm CLINICAL HISTORY: Distal femoral fracture TECHNIQUE: Helical images were acquired in the transverse plane. Sagittal and coronal reformatted faisal ges were acquired. A dose lowering technique was utilized adhering to the principles of ALARA. COMPARISON STUDY: Commensurate radiographic study dated 11/12/2018 FINDINGS: The bones are osteopenic. There is a total left knee arthroplasty. No fractures of the prox imal tibia or fibula are visualized. There are vascular calcifications present. There is a periprosth etic fracture of the distal femur. The fracture appears mildly comminuted and impacted. There is 8 mm of displacement. IMPRESSION: Comminuted impacted periprosthetic fracture of the distal femoral metaphysis. 8 mm of po sterior major fracture fragment displacement. Electronically signed by: Rodrigo Snell M.D. 11/13/2018 6:53 AM
--- NOTE | 2018-11-13 07:08 | XRay Report ---
XR ankle LT min 3V routine CLINICAL HISTORY: Left ankle pain status post trauma COMPARISON: None. DISCUSSION: The bones are osteopenic. No acute fractures are visualized. There are deformities of the talus and calcaneus which are likely chronic. Correlation with the patient's site of pain is advocat ed. Additional imaging could be obtained if the patient is symptomatic in this region. IMPRESSION: 1. Diffuse osteopenia 2. No acute fractures identified on conventional radiographic imaging 3. Calcaneal and talar deformities, likely chronic. Clinical correlation will be necessary in this re matty.. Electronically signed by: Rodrigo Snell M.D. 11/13/2018 7:07 AM
--- NOTE | 2018-11-13 07:09 | XRay Report ---
XR shoulder LT min 2V routine CLINICAL HISTORY: Left shoulder pain status post trauma COMPARISON: None. DISCUSSION: The bones are osteopenic. There are advanced arthritic changes present within the left sh oulder with joint space irregularity and prominent osteophyte formation. No dislocation is evident. N o acute fractures are visualized. IMPRESSION: Advanced arthritic changes. No acute fractures identified Electronically signed by: Rodrigo Snell M.D. 11/13/2018 7:08 AM
--- NOTE | 2018-11-13 07:10 | XRay Report ---
XR knee LT 2V routine CLINICAL HISTORY: Left knee pain status post trauma COMPARISON: None. DISCUSSION: The bones are osteopenic. There is a total left knee arthroplasty. There is a mildly comm inuted impacted periprosthetic fracture of the distal femur with 14 mm of posterior displacement. IMPRESSION: Mildly comminuted impacted periprosthetic fracture of the distal femur. Electronically signed by: Rodrigo Snell M.D. 11/13/2018 7:09 AM
--- NOTE | 2018-11-13 07:12 | XRay Report ---
XR femur LT 2V routine CLINICAL HISTORY: Left leg pain status post trauma COMPARISON: None. DISCUSSION: The bones are osteopenic. No proximal femoral fractures are visualized. There is an impac getachew mildly comminuted periprosthetic fracture of the distal femur demonstrating 15 mm of posterior di splacement. IMPRESSION: Impacted periprosthetic fracture of the distal femur. No proximal femoral fractures are v isualized. Electronically signed by: Rodrigo Snell M.D. 11/13/2018 7:10 AM
[2018-11-13] MEDS ORDERED: INSULIN ASPART 100 UNITS/ML 3 ML PEN SC SCH (07:30)
[2018-11-13] MEDS: cefTRIAXone SODIUM 1,000 MG in SODIUM CHLOR 0.9% AD-VAN 50 ML IV SCH (07:55)
[2018-11-13] MEDS: CALCIUM 600MG + VIT D 400 IU TAB PO SCH ×2 (07:59→21:28)
[2018-11-13] MEDS: TAMSULOSIN HCL 0.4 MG CAP PO SCH (07:59)
[2018-11-13] MEDS: ALLOPURINOL 100 MG TAB PO SCH ×2 (07:59→21:29)
[2018-11-13] MEDS: CITALOPRAM 20 MG TAB PO SCH (08:00)
[2018-11-13] MEDS: PANTOprazole 40 MG TAB PO SCH (08:01)
[2018-11-13] MEDS: DOCUSATE SODIUM 100 MG CAP PO SCH ×2 (08:01→21:29)
[2018-11-13] MEDS: SULFACETAMIDE SODIUM 10% OP SOLN 15 ML BTL OPR SCH ×3 (08:02→21:29)
[2018-11-13] MEDS: MAGNESIUM OXIDE 400 MG TAB PO SCH (08:03)
[2018-11-13] MEDS ORDERED: METOPROLOL TARTRATE 50 MG TAB PO SCH (09:00)
[2018-11-13] MEDS: FUROSEMIDE 20 MG in SYRINGE 0 ML IV SCH ×2 (11:07→16:15)
--- NOTE | 2018-11-13 11:26 | Ultrasound Report ---
RENAL ULTRASOUND HISTORY: Chronic kidney disease, history of stones COMPARISON: Abdomen and pelvis CT 11/12/2018. FINDINGS: Right kidney: 6.6 cm. No hydronephrosis. Atrophic and echogenic. Multiple stones identified within la rgest measuring 8 mm. Left kidney: 9.4 cm. Not well visualized. No hydronephrosis. No renal calculi identified. Likely norm al cortical thickness. Bladder: Not well distended and therefore not well evaluated. Suggestion of echogenic debris layering posteriorly. Prevoid volume was 54 cc. The patient was unable to void. IMPRESSION: 1. No change in the atrophic right kidney containing multiple stones. No hydronephrosis. 2. Suboptimal evaluation of the left kidney. However, this appears within normal limits. 3. The bladder is not well assessed due to underdistention. Echogenic area layering posteriorly withi n the bladder may represent debris. Recommend correlation with urinalysis. Electronically signed by: Bebeto Layton M.D. 11/13/2018 11:25 AM
--- NOTE | 2018-11-13 13:08 | Orthopedic Consultation ---
Date of Consultation November 13, 2018 Assessment & Plan (1) Compression fracture of thoracic vertebra: At this time her thoracic and lumbar compression fractures are of indeterminate age. They do not appear to be contributing to her current situation. After she undergoes fixation of her fracture she may consider more detailed imaging of the thoracolumbar spine in the form of an MRI. Present on Admission?: Yes History of Present Illness Reason for Consultation: Compression fractures Attending Physician: Ash Weiner MD History of Present Illness This is a very pleasant 83-year-old female. A examined her and had discussion today with her daughter in the room. She describes some modest left sided anterior rib cage discomfort. She denies any specific thoracolumbar back pain. She denies any radicular or neurogenic complaints to the lower extremities. She does of course of her fracture which is the most uncomfortable component of her situation. Allergies Allergy/AdvReac Type Severity Reaction Status Date / Time No Known Allergies Allergy Verified 11/12/18 23:35 Home Medications Home Medications Medication Instructions Recorded Confirmed Type acetaminophen [Tylenol] 650 mg PO Q8 11/12/18 11/12/18 History albuterol sulfate 2.5 mg INHALATION Q4 PRN 11/12/18 11/12/18 History allopurinol 100 mg PO BID 11/12/18 11/12/18 History [id number] 1 tab PO BID 11/12/18 11/12/18 History [Caltrate 600-D Plus Minerals] citalopram 10 mg PO DAILY 11/12/18 11/12/18 History cranberry conc-ascorbic acid 1 tab PO DAILY 11/12/18 11/12/18 History docusate sodium [DOK] 100 mg PO BID 11/12/18 11/12/18 History furosemide [Lasix] 20 mg PO DAILY PRN 11/12/18 11/12/18 History glipizide 2.5 mg PO BIDM 11/12/18 11/12/18 History hydralazine 25 mg PO TID 11/12/18 11/12/18 History lisinopril 20 mg PO DAILY 11/12/18 11/12/18 History magnesium oxide 400 mg PO DAILY 11/12/18 11/12/18 History metoprolol tartrate 50 mg PO BID 11/12/18 11/12/18 History pantoprazole 40 mg PO DAILY 11/12/18 11/12/18 History sulfacetamide sodium 1 drp OPR TID 11/12/18 11/12/18 History tamsulosin 0.4 mg PO DAILY 11/12/18 11/12/18 History tramadol 50 mg PO Q12 PRN 11/12/18 11/12/18 History triamcinolone acetonide 1 applic TOPICAL BID PRN 11/12/18 11/12/18 History Patient History Medical History Diabetes (Chronic) Hypertension (Chronic) Social History Current Living Situation: Spouse Other Information That Helps Us Care for You: No Feels Safe at Home: Yes Safety Concerns: Feels Safe At This Time Smoking Status: Never smoker Second Hand Exposure: No Hx Alcohol Use: No Hx Substance Use: No Beliefs That Will Affect Care: None Communication Ability: Effective Auto Wrecker Required: No Physical Exam 2 Vital Signs (Past 24 Hours): Last Vital Signs Temp 36.7 C 11/13/18 07:36 Pulse 102 H 11/13/18 07:36 Resp 18 11/13/18 07:36 BP 93/62 L 11/13/18 07:36 Pulse Ox 95 11/13/18 07:36 Physical Exam: On physical exam she is lying supine. She is alert and oriented. She appears comfortable. She appears to be neurologically intact to testing bilateral extremities. Exam limited secondary to fracture. _ (1) Compression fracture of thoracic vertebra Encounter type: initial encounter Fracture healing: Fracture type: closed Qualified Code(s): S22.000A - Wedge compression fracture of unspecified thoracic vertebra, initial encounter for closed fracture
[2018-11-13 13:52] LABS: BUN Creatinine Ratio 23.6 (10-20); Calcium 8.6 mg/dl (8.5-10.1); Creatinine Clr Calc Pharmacy 17.7 ml/min; Est GFR (African American) 18.9; Est GFR (Non-African American) 16.3
--- NOTE | 2018-11-13 16:30 | Consultation Report ---
DATE OF CONSULTATION: 11/13/2018 CHIEF COMPLAINT: Back pain and left knee pain. HISTORY OF PRESENT ILLNESS: This is an 83-year-old female who apparently fell a few weeks ago injuring her back. She was diagnosed with a T4-T5 and L5 compression fractures. She again fell yesterday, within the past 24 hours, on her left side, complaining of left knee pain. The patient typically does ambulate with a walker. She was at home when she fell. The patient is complaining mostly of left knee pain at this point in time. She did have her knees replaced back in 1999 in [place]. She was brought to the Emergency Room after not being able to ambulate. She was diagnosed with a distal femur periprosthetic fracture about the left knee replacement. She was admitted under medicine for definitive orthopedic treatment, that being surgery. PAST MEDICAL HISTORY: Diabetes mellitus, hiatal hernia, allergic rhinitis, hypertension, constipation, renal stones, recurrent UTI, osteoporosis, osteoarthritis, chronic back pain, anemia of chronic disease, chronic kidney disease stage IV, generalized weakness and ambulatory dysfunction. SOCIAL HISTORY: The patient lives at home with her . She has no smoking or drinking history. She ambulates normally with a walker. FAMILY HISTORY: Significant for diabetes and stomach ulcer. REVIEW OF SYSTEMS: The patient denies any head injuries or loss of consciousness as a result out of the fall. She complains mostly of left knee pain. Otherwise denies any shortness of breath, chest pain, nausea, vomiting or any other joint complaints. MEDICATIONS: Provided on the admitting team's history and physical. ALLERGIES: No known drug allergies. PHYSICAL EXAMINATION: GENERAL: This is a well-developed, well-nourished 83-year-old female. She is in no acute distress. She is resting comfortably in bed right now in her room. She is alert and oriented x3 and pleasant. HEENT: Normocephalic, atraumatic. Extraocular motions are intact. Pupils equal, reactive to light. HEART: Regular rate and rhythm with no murmurs appreciated. LUNGS: Clear. ABDOMEN: Soft and nontender. Bowel sounds are present. EXTREMITIES: Left lower extremity she has some very mild edema from the knee down. She is able to wiggle her toes and pump her ankle up and down. Distally her pulses are intact. She has good sensation in her left lower extremity. Range of motion and strength were deferred at the knee level. She was wearing a left knee immobilizer that was fitting fine. DIAGNOSES: Left distal femur periprosthetic femur fracture with a history of diabetes mellitus, Charcot foot Yulisa disease, hiatal hernia, allergic rhinitis, hypertension, constipation, renal stones, recurrent UTI, osteoporosis, osteoarthritis, chronic back problem, anemia of chronic disease, stage IV kidney disease, generalized weakness and ambulatory dysfunction. PLAN: Orthopedically at this point in time the patient will be set up for an ORIF distal periprosthetic femur fracture. We will get the necessary consent forms, preoperative testing and clearances and will perform this within the next 24 hours and follow her orthopedically in the hospital while she is here.
--- NOTE | 2018-11-13 17:07 | Nephrology Consultation ---
Date of Consultation November 13, 2018 Assessment & Plan (1) PANTERA (acute kidney injury): Patient with acute kidney injury on CKD stage IV. Baseline creatinine is around 2. She had a creatinine of 1.8 in May 2018. She presented with a creatinine of 1.9 and up to 2.6 today. Etiology of acute kidney injury is likely ischemic ATN in setting of hypotension. Management of ATN is supportive. Recommend optimizing blood pressure. I stopped amlodipine and metoprolol. Would give gentle IV fluids, normal saline at 75 mL/h. Avoid nephrotoxins unless lifesaving. (2) Hypotension: Likely due to possible blood loss in setting of fracture femur. We are holding antihypertensive medications. Recommend gentle IV fluids (3) Hyperkalemia: Due to acute kidney injury. Patient received Kayexalate and potassium is down to 5. Patient should be on a renal diet. We might consider Lasix in the next couple of days and if volume status is adequate (4) Nephrolithiasis: Patient has bilateral renal stones. Needs atrophic. Kidney stones are nonobstructive at the moment. Continue supportive management. Patient will need outpatient follow-up with nephrology after discharge. History of Present Illness Reason for Consultation: CKD and hyperkalemia Requesting Physician: Peggy Narvaez MD Attending Physician: Ash Weiner MD History of Present Illness This is a 83-year-old female with history of type 2 diabetes, hypertension, gastroesophageal reflux disease and chronic kidney disease stage IV with baseline creatinine of around 2 who was admitted on 11/12/2018 with left femoral fracture sustained after mechanical fall at home. Patient has history of CKD stage for for many years. She essentially has one kidney. Right kidney is atrophic measuring 6.6 cm and left kidney is 9.4 cm. She has a history of renal stones and had cystoscopy with ureteral stent in 2017 for infected obstructive stone in the right ureter. She still has multiple stones on imaging. On admission she had a creatinine of 1.9 up to 2.6 today. We have been asked to evaluate her for etiology and management of worsening renal function. Her blood pressure has been on the lower side with systolic in the 90s-100. She also had a potassium of 5.5 this morning. Patient denies any shortness of breath but is complaining of left leg pain. No dysuria but she is sometimes incontinent. Allergies Allergy/AdvReac Type Severity Reaction Status Date / Time No Known Allergies Allergy Verified 11/12/18 23:35 Home Medications Home Medications Medication Instructions Recorded Confirmed Type acetaminophen [Tylenol] 650 mg PO Q8 11/12/18 11/12/18 History albuterol sulfate 2.5 mg INHALATION Q4 PRN 11/12/18 11/12/18 History allopurinol 100 mg PO BID 11/12/18 11/12/18 History [id number] 1 tab PO BID 11/12/18 11/12/18 History [Caltrate 600-D Plus Minerals] citalopram 10 mg PO DAILY 11/12/18 11/12/18 History cranberry conc-ascorbic acid 1 tab PO DAILY 11/12/18 11/12/18 History docusate sodium [DOK] 100 mg PO BID 11/12/18 11/12/18 History furosemide [Lasix] 20 mg PO DAILY PRN 11/12/18 11/12/18 History glipizide 2.5 mg PO BIDM 11/12/18 11/12/18 History hydralazine 25 mg PO TID 11/12/18 11/12/18 History lisinopril 20 mg PO DAILY 11/12/18 11/12/18 History magnesium oxide 400 mg PO DAILY 11/12/18 11/12/18 History metoprolol tartrate 50 mg PO BID 11/12/18 11/12/18 History pantoprazole 40 mg PO DAILY 11/12/18 11/12/18 History sulfacetamide sodium 1 drp OPR TID 11/12/18 11/12/18 History tamsulosin 0.4 mg PO DAILY 11/12/18 11/12/18 History tramadol 50 mg PO Q12 PRN 11/12/18 11/12/18 History triamcinolone acetonide 1 applic TOPICAL BID PRN 11/12/18 11/12/18 History Patient History Medical History Diabetes (Chronic) Hypertension (Chronic) Social History Current Living Situation: Spouse Other Information That Helps Us Care for You: No Feels Safe at Home: Yes Safety Concerns: Feels Safe At This Time Smoking Status: Never smoker Second Hand Exposure: No Hx Alcohol Use: No Hx Substance Use: No Beliefs That Will Affect Care: None Communication Ability: Effective Review of Systems All other systems were reviewed and negative except as noted in HPI Physical Exam 2 Vital Signs (Past 24 Hours): Last Vital Signs Temp 36.3 C L 11/13/18 15:56 Pulse 102 H 11/13/18 15:56 Resp 18 11/13/18 15:56 BP 96/55 L 11/13/18 15:56 Pulse Ox 95 11/13/18 15:56 Physical Exam: General exam: Appears comfortable, no acute distress HEENT: Pupils are equal and reactive to light Neck: No JVD, neck is supple trachea is midline Respiratory system: Clear breath sounds bilaterally. Gastrointestinal: Abdomen is soft, non distended, non tender, bowel sounds are present CVS: Regular rate and rhythm. No murmurs, rubs or gallops Musculoskeletal: No joint or muscle tenderness Extremities: Left leg is slightly swollen and immobilized. No edema bilaterally Neuro: Oriented, no tremors, no focal neurological deficits Skin: No rashes Results & Data Laboratory Results Labs reviewed including potassium of 5 and creatinine of 2.6 Diagnostic Findings Renal ultrasound shows right 6.6 cm atrophic kidney with multiple kidney stones and left 9.4 cm kidney
--- NOTE | 2018-11-13 17:50 | Hospitalist Progress Note ---
Date of Service November 13, 2018 Assessment & Plan (1) Closed femur fracture: Patient is an 83 yr female who presents with fall and T4, T5, and L5 compression deformities and acute left distal femur fracture. Mechanical Fall Also fell 2 weeks ago Acute distal femur periprosthetic femur fracture Imaging Studies reviewed Planned for ORIF tomorrow Appreciate Orthopedics Input Pain control Compression fracture of thoracic vertebra Age indeterminate May need MRI thoracolumbar spine after fixing acute fracture Orthopedics following PANTERA on CKD IV: Likely ATN Cr:1.8 in May 2018 Cr: 2.6 Appreciate Nephrology Input Continue gentle IV fluids Lasix, Lisinopril held Hyperkalemia: Likely 2/2 to above S/P kayexalate Monitor potassium levels Lisinopril held H/O HTN Hypotension: BP meds held On IV fluids UTI: Urine Culture:pending Continue Ceftriaxone DM II: A1C: 6.0 Hold PO meds Continue ISS H/O gout Continue allopurinol. Anemia of chronic kidney disease: Hb stable Monitor Generalized osteoarthritis On Tramadol PRN Nephrolithiasis H/O recurrent UTIs On Flomax Depression On Celexa GERD: on Protonix DVT Px: as per orthopedics Re: Planned for procedure AM Code Status: family is okay with intubation, but no CPR or shocks as per admitting physician Disposition To be determined Social service for discharge planning Subjective Patient is seen and examined at bedside Patient complains of Left leg pain and back pain Denies any chest pain, dyspnea, dizziness, abd pain No other complaints Physical Exam 2 Vital Signs (Past 24 Hours): Last Vital Signs Temp 36.3 C L 11/13/18 15:56 Pulse 102 H 11/13/18 15:56 Resp 18 11/13/18 15:56 BP 96/55 L 11/13/18 15:56 Pulse Ox 95 11/13/18 15:56 Physical Exam: Physical Exam: Vitals signs as noted above General Appearance:Moderately built and nourished, no apparent distress Head: normocephalic, Atraumatic Eyes: normal inspection, EOMI Neck: supple, Trachea midline Respiratory/Chest: Normal breath sounds, CTA Cardiovascular: S1, S2, No murmur Abdomen/GI:Soft, Non tender, Bowel sounds present Extremities/Musculoskelatal:normal inspection, LE edema noted Neurologic/Psych:AAOX3, grossly no focal neurological deficits Skin: normal color, warm Results & Data Laboratory Results Short CBC 11/12/18 11/13/18 Range/Units 21:19 05:27 WBC 16.90 H 17.45 H (4.8-10.8) K/uL Hgb 11.2 L 9.2 L (12.0-16.0) g/dL Hct 36.1 L 29.6 L (37-47) % Plt Count 258 259 (130-400) K/uL BMP 11/12/18 11/13/18 11/13/18 21:19 05:27 13:07 Sodium 141 140 142 Potassium 5.2 H 5.5 H 5.0 Chloride 111 H 112 H 113 H Carbon Dioxide 23 26 27 BUN 53 H 58 H 61 H Creatinine 1.94 H 2.12 H 2.60 H D Glucose 145 H 191 H 159 H Calcium 9.6 9.3 8.6 Cardiac Enzymes 11/12/18 Range/Units 21:19 Troponin I < 0.015 (0-0.045) ng/ml Liver Function 11/12/18 Range/Units 21:19 Total Bilirubin 0.3 (0.2-1) mg/dl AST 29 (15-37) U/L ALT 51 (12-78) U/L Alkaline Phosphatase 109 (45-117) U/L Albumin 3.3 L (3.4-5.0) gm/dl Urine 11/13/18 Range/Units 04:20 Urine Color Yellow Urine Appearance Cloudy H (Clear) Urine pH 5.0 (4.5-7.5) Ur Specific [place] 1.020 (1.000-1.030) Urine Protein 1+ H (Negative) Urine Glucose (UA) Negative (Negative) _ (1) Closed femur fracture Encounter type: initial encounter Femur location: distal epiphysis Fracture alignment: displaced Fracture healing: Fracture morphology: Laterality: left Qualified Code(s): S72.442A - Displaced fracture of lower epiphysis ( separation) of left femur, initial encounter for closed fracture
--- NOTE | 2018-11-13 18:23 | Orthopedic Progress Note ---
Date of Service November 13, 2018 Assessment & Plan (1) Compression fracture of thoracic vertebra: At this time her thoracic and lumbar compression fractures are of indeterminate age. They do not appear to be contributing to her current situation. After she undergoes fixation of her fracture she may consider more detailed imaging of the thoracolumbar spine in the form of an MRI. (2) Closed femur fracture: Proceed with open reduction internal fixation with locking plate fixation (3) Right knee pain: Check x-rays to rule out another fracture or loosening or osteolysis or other causes of right knee pain after knee replacement Subjective Her left knee is comfortable in the knee immobilizer as long she does not move it. She has right knee pain with any motion. She has had chronic right knee pain. She had both knees replaced simultaneously years ago. Physical Exam 2 Vital Signs (Past 24 Hours): Last Vital Signs Temp 36.3 C L 11/13/18 15:56 Pulse 102 H 11/13/18 15:56 Resp 18 11/13/18 15:56 BP 96/55 L 11/13/18 15:56 Pulse Ox 95 11/13/18 15:56 Physical Exam: Left knee is in a brace. Her left ankle has a fixed valgus deformity with stiffness likely related to chronic degenerative changes. Right knee she has a 15 degree flexion contracture her back pain limited strength evaluation there is limited flexion of the knee with painful range of motion and I was going to flex her knee about 70 degrees. She has apparently chronic swelling possible chronic knee effusion. I do not see any ecchymosis. Results & Data Diagnostic Findings Left distal femur comminuted periprosthetic femoral fracture. Did not see any x -rays of her right knee. No gross fracture on CAT scan which had 1 shot of right knee. _ (1) Compression fracture of thoracic vertebra Encounter type: initial encounter Fracture healing: Fracture type: closed Qualified Code(s): S22.000A - Wedge compression fracture of unspecified thoracic vertebra, initial encounter for closed fracture (2) Closed femur fracture Encounter type: initial encounter Femur location: distal epiphysis Fracture alignment: displaced Fracture healing: Fracture morphology: Laterality: left Qualified Code(s): S72.442A - Displaced fracture of lower epiphysis ( separation) of left femur, initial encounter for closed fracture
--- NOTE | 2018-11-13 18:44 | XRay Report ---
XR knee RT 2V routine CLINICAL HISTORY: right knee replacement recent trauma chronic pain COMPARISON: Right knee radiographs October 11, 2014. FINDINGS: Total right knee arthroplasty is noted. No proximal right tibial or fibular fracture is id entified although positioning is suboptimal on this exam. Note is made of an acute appearing comminut ed oblique mildly displaced distal right femoral periprosthetic fracture which is partially imaged on this exam. Fracture at least extends to the distal diaphysis of the right femur. IMPRESSION: Acute appearing comminuted oblique mildly displaced distal right femoral periprosthetic f racture which is partially imaged on this exam but at least extends to the distal diaphysis of the ri ght femur. Right femur radiographs might be considered to image the full extent of the fracture. Electronically signed by: Trevon Chung M.D. 11/13/2018 6:43 PM
--- NOTE | 2018-11-13 21:16 | XRay Report ---
XR femur RT 2V routine CLINICAL HISTORY: periprosthetic femur fracture evaluate level COMPARISON: Right knee radiographs October 11, 2014 and November 13, 2018. FINDINGS: End-stage osteoarthritis of the right hip with complete loss of the joint space is noted w ith flattening of the right femoral head. There is no proximal right femoral fracture by radiography. Note is made of an acute oblique mildly displaced periprosthetic fracture that extends from the mid to distal diaphysis of the right femur to the femoral component of the right knee arthroplasty. Fract ure is displaced approximately 9 mm. There is no proximal right tibial or fibular fracture. IMPRESSION: 1. Acute oblique mildly displaced distal right femoral periprosthetic fracture, as described above. 2. Severe osteoarthritis of the right hip. Electronically signed by: Trevon Chung M.D. 11/13/2018 9:15 PM
--- NOTE | 2018-11-13 22:25 | CT Scan Report ---
CT OF THE RIGHT KNEE WITHOUT CONTRAST CLINICAL HISTORY: periprosthetic fracture COMPARISON STUDY: Right knee radiographs performed earlier today. TECHNIQUE: Axial images of the right knee were obtained without IV contrast. Sagittal and coronal rec onstructions were viewed. Automated exposure control was utilized for the study. A dose lowering tatum hnique was utilized adhering to the principles of ALARA. FINDINGS: Candy Dipper tomogram demonstrates a left femoral periprosthetic fracture which is better depicted on the CT of the left knee performed earlier today. Evaluation is mildly compromised by streak artif act due to the right knee arthroplasty. Note is made of an acute oblique mildly displaced fracture of the distal right femur that extends from the level the distal diaphysis to the femoral component of the right knee arthroplasty. Fracture is comminuted and displaced 1.2 cm. There is no proximal right tibial or fibular fracture. Extensive vascular calcification is noted. A small right knee joint effus ion is noted. Soft tissue edema/hemorrhage adjacent to the femoral fracture is noted. IMPRESSION: 1. Acute oblique comminuted mildly displaced distal right femoral periprosthetic fracture that extend s from the distal diaphysis to the femoral component of the right knee arthroplasty. 2. No proximal right tibial or fibular fracture. Electronically signed by: Trevon Chung M.D. 11/13/2018 10:24 PM
[2018-11-14] MEDS ORDERED: Nursing to Pharmacy Communication ONE (01:31)
[2018-11-14] MEDS ORDERED: KEFZOL SPECIAL PROCEDURE STOCK 1 GM ADDVIAL IV ONE (05:00)
[2018-11-14] MEDS ORDERED: CEFAZOLIN 2000MG 2,000 MG/15 ML SYR IV SCH (06:00)
[2018-11-14] MEDS ORDERED: INSULIN ASPART 100 UNITS/ML 3 ML PEN SC SCH (06:00)
[2018-11-14] MEDS: cefTRIAXone SODIUM 1,000 MG in SODIUM CHLOR 0.9% AD-VAN 50 ML IV SCH (06:32)
[2018-11-14] MEDS ORDERED: ROPIVACAINE 0.5% 5 MG/ML 30 ML VIAL ONE (06:38)
[2018-11-14] MEDS ORDERED: BUPIVACAINE 0.5 % 5 MG/1 ML PF 10ML VIAL ONE (06:40)
[2018-11-14] MEDS: DOCUSATE SODIUM 100 MG CAP PO SCH (07:48)
[2018-11-14] MEDS: ALLOPURINOL 100 MG TAB PO SCH (07:48)
[2018-11-14] MEDS: PANTOprazole 40 MG TAB PO SCH (07:48)
[2018-11-14] MEDS: CALCIUM 600MG + VIT D 400 IU TAB PO SCH (07:48)
[2018-11-14] MEDS: CITALOPRAM 20 MG TAB PO SCH (07:48)
[2018-11-14] MEDS: SULFACETAMIDE SODIUM 10% OP SOLN 15 ML BTL OPR SCH (07:49)
[2018-11-14] MEDS: MAGNESIUM OXIDE 400 MG TAB PO SCH (07:49)
[2018-11-14] MEDS: TAMSULOSIN HCL 0.4 MG CAP PO SCH (07:49)
[2018-11-14] MEDS: SODIUM CHLORIDE 0.9% 1000ML 1,000 ML IV SCH (07:51)
[2018-11-14 09:34] LABS: Basophils # (auto) 0.03 K/uL (0-0.2); Basophils % (auto) 0.2 %; Eosinophils # (auto) 0.07 K/uL (0-0.5); Eosinophils % (auto) 0.4 %; Hemoglobin 7.2 g/dL (12.0-16.0); Immature Granulocytes # (auto) 0.09 K/uL (0.00-0.02); Immature Granulocytes % (auto) 0.6 %; Lymphocytes # (auto) 2.36 K/uL (1.2-3.4); Mean Corpuscular Hgb Conc 31.3 g/dL (32-36); Mean Corpuscular Volume 114.4 fL (80-100); Mean Platelet Volume 9.9 fL (7.4-10.4); Monocytes # (auto) 1.61 K/uL (0.11-0.59); Monocytes % (auto) 10.3 %; Neutrophils # (auto) 11.53 K/uL (1.4-6.5); Neutrophils % (auto) 73.5 %; Platelet Count 200 K/uL (130-400); RDW Coefficient of Variation 15.2 % (11.5-14.5); RDW Standard Deviation 62.1 fL (36.4-46.3); Red Blood Count 2.01 M/uL (4.2-5.4); White Blood Count 15.69 K/uL (4.8-10.8)
[2018-11-14 09:56] LABS: Macrocytosis Present
[2018-11-14 10:01] LABS: BUN Creatinine Ratio 22.9 (10-20); Calcium 8.6 mg/dl (8.5-10.1); Creatinine Clr Calc Pharmacy 14.5 ml/min; Est GFR (African American) 14.7; Est GFR (Non-African American) 12.7; Magnesium 2.5 mg/dl (1.8-2.4); Potassium 4.6 mmol/L (3.5-5.1)
[2018-11-14] MEDS: ACETAMINOPHEN 325 MG TAB PO PRN (10:11)
[2018-11-14] MEDS ORDERED: SODIUM CHLORIDE 0.9% 250 ML IV PRN (10:51)
--- NOTE | 2018-11-14 11:35 | Hospitalist Progress Note ---
Date of Service November 14, 2018 Assessment & Plan (1) Closed femur fracture: Patient is an 83 yr female who presents with fall and T4, T5, and L5 compression deformities and acute left distal femur fracture. Mechanical Fall Also fell 2 weeks ago Acute Left and Right femur periprosthetic femur fractures Imaging Studies reviewed Appreciate Orthopedics Input Pain control Patient needs Complicated Surgery recommended the patient to be transferred to [facility] for further management as patient would require a complicated surgery. Accepted the patient Updated Family Compression fracture of thoracic vertebra Age indeterminate May need MRI thoracolumbar spine after fixing acute fracture Orthopedics following PANTERA on CKD IV: Likely ATN Cr:1.8 in May 2018 Cr: 2.6>>3.19 Appreciate Nephrology Input Continue gentle IV fluids Lasix, Lisinopril held Hyperkalemia:Resolved Likely 2/2 to above S/P kayexalate Monitor potassium levels Lisinopril held H/O HTN Hypotension: BP meds held On IV fluids BP more stable today UTI: Urine Culture:pending Continue Ceftriaxone DM II: A1C: 6.0 Hold PO meds Continue ISS H/O gout Continue allopurinol. Anemia of chronic kidney disease: Hb stable Monitor Transfuse PRBCs as needed Generalized osteoarthritis On Tramadol PRN Nephrolithiasis H/O recurrent UTIs On Flomax Depression On Celexa GERD: on Protonix DVT Px: as per orthopedics Re: Planned for procedure Code Status: family is okay with intubation, but no CPR or shocks as per admitting physician Disposition Plan to transfer to [facility] for further management Social service for discharge planning Subjective Patient is seen and examined at bedside Complains of leg pain Denies any chest pain, dizziness, abd pain Family at bedside Discussed with Orthopedics-- recommended the patient to be transferred to [facility] for further management as patient would require a complicated surgery Physical Exam 2 Vital Signs (Past 24 Hours): Last Vital Signs Temp 37.3 C 11/14/18 07:11 Pulse 120 H 11/14/18 07:11 Resp 21 11/14/18 07:11 BP 112/65 11/14/18 07:11 Pulse Ox 94 11/14/18 07:11 Physical Exam: Physical Exam: Vitals signs as noted above General Appearance:Moderately built and nourished, no apparent distress Head: normocephalic, Atraumatic Eyes: normal inspection, EOMI Neck: supple, Trachea midline Respiratory/Chest: Normal breath sounds, CTA Cardiovascular: S1, S2, No murmur, +Tachycardia Abdomen/GI:Soft, Non tender, Bowel sounds present Extremities/Musculoskelatal:normal inspection, LE edema noted Neurologic/Psych:AAOX3, grossly no focal neurological deficits Skin: normal color, warm Results & Data Laboratory Results Short CBC 11/14/18 Range/Units 09:24 WBC 15.69 H (4.8-10.8) K/uL Hgb 7.2 L (12.0-16.0) g/dL Hct 23.0 L (37-47) % Plt Count 200 (130-400) K/uL BMP 11/13/18 11/14/18 13:07 09:24 Sodium 142 141 Potassium 5.0 4.6 Chloride 113 H 108 H Carbon Dioxide 27 27 BUN 61 H 73 H Creatinine 2.60 H D 3.19 H D Glucose 159 H 148 H Calcium 8.6 8.6 _ (1) Closed femur fracture Encounter type: initial encounter Femur location: distal epiphysis Fracture alignment: displaced Fracture healing: Fracture morphology: Laterality: left Qualified Code(s): S72.442A - Displaced fracture of lower epiphysis ( separation) of left femur, initial encounter for closed fracture
--- NOTE | 2018-11-14 11:44 | Discharge Summary ---
Date of Service November 14, 2018 Admission HPI Per Admitting Provider DATE OF ADMISSION: 11/13/2018 CHIEF COMPLAINT: Status post fall, back pain, and left knee pain. HISTORY OF PRESENT ILLNESS: This is an 83-year-old female with past medical history significant for diabetes, Charcot foot with diabetes, hiatal hernia, seasonal allergic rhinitis, hypertension, constipation, prolapse of vaginal suggs, history of renal stone, history of recurrent UTI, history of osteoporosis,generalized osteoarthritis, chronic back pain, anemia of chronic kidney disease, chronic kidney disease stage IV, generalized weakness, and ambulatory dysfunction. Lives with her . Fell a couple of weeks ago. Complaining of back pain. At her PCP, x-rays were done, they were unremarkable, but this was not getting better, the pain was getting severe. She was started on gabapentin, but that was not helping and today again she fell on the left side and she was brought in here and imaging studies shows acute complex fracture of the distal femur on the left side and T4, T5, and L5 compression fractures. The patient does have significant pain. Denies any headaches. No blurred visions. Somewhat hard of hearing. No runny nose, no sore throat, no difficulty swallowing, no cough, no recent fever, no chills, no chest pain, no shortness of breath, no nausea, no vomiting, no abdominal pain. Normal bowel and bladder movements. Appetite is okay. Ambulates with a walker, but ambulatory status is very poor. Before the fall itself, she used to ambulate very slowly. Admission Exam Per Admitting Provider PHYSICAL EXAMINATION: GENERAL: The patient is old and frail, not in acute distress. VITAL SIGNS: Temperature 36.6, pulse 88, respiratory rate 16, blood pressure 115/69, oxygen 94% on 2 liters. HEENT: No pallor, no icterus. Pupils equal, round, and reactive to light. NECK: No JVD, no neck masses, no carotid bruits. CARDIOVASCULAR: S1, S2 heard, regular rate and rhythm, no murmur, no gallop. RESPIRATORY SYSTEM: Normal AP diameter. No accessory muscle use. No wheezing, no crackles. ABDOMEN: Soft, bowel sounds present. Nontender. No distention. CENTRAL NERVOUS SYSTEM: Cranial nerves II through XII intact, nonfocal. EXTREMITIES: Mild pedal edema present. Right lower extremity, short and externally rotated which seems to be chronic. Mild swelling around the left knee region. Principal Diagnosis Discharge Information Discharge Diagnosis Acute Left and Right femur periprosthetic femur fractures ATN, Anemia, UTI, Compression fracture of thoracic vertebra Hyperkalemia--resolved Discharge Goals Decrease discomfort,Improve disease control, Improve function Discharge Activity Limitations Per instructions/follow-up Discharge Data Allergies Allergy/AdvReac Type Severity Reaction Status Date / Time No Known Allergies Allergy Verified 11/12/18 23:35 Consultations 11/13/18 00:10 ED Decision to Admit Stat 11/13/18 02:39 Consult Case Management - Discharge Planning Routine 11/13/18 07:32 Consult Orthopedic Surgery Routine 11/13/18 08:00 Consult Nephrology Routine Consult Orthopedic Surgery Routine Procedures Performed Operation Date: 11/14/18 12:55 <No data on this case meets the specified criteria> CT ABD: 1. Bibasilar atelectatic/infiltrative change. 2. Bilateral nonobstructing renal calcifications. 3. No acute process within the abdomen or pelvis. 4. 50% compression deformity L5 which has been described previously. 5. 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 CT neack: Severe degenerative change. No acute process. CT head: Age-related change. No acute process. CT chest: 1. Hiatal hernia. 2. Bibasilar atelectatic and/or infiltrative change. 3. Stable tortuosity thoracic aorta. 4. Hiatal hernia. 5. Compression deformities of T5 and T6 which have been described previously. Lumbar CT: 1. 50% compression deformity L5.. 2. Moderate posterior displacement of the superior margin of the L5 vertebral body narrowing the spinal canal by 50%. 3. Severe degenerative disc change throughout all remaining components of the lumbar region. 4. Multilevel multifactorial narrowing of the spinal canal throughout. Thoracic CT: 1. 50% compression deformity T6. 2. 20% compression deformity T5. 3. No significant compromise of the spinal canal or neural foramina. Left Leg X ray: Periprosthetic fracture of the distal femur. Left Knee CT: Comminuted impacted periprosthetic fracture of the distal femoral metaphysis. 8 mm of posterior major fracture fragment displacement. Renal USD: 1. No change in the atrophic right kidney containing multiple stones. No hydronephrosis. 2. Suboptimal evaluation of the left kidney. However, this appears within normal limits. 3. The bladder is not well assessed due to underdistention. Echogenic area layering posteriorly within the bladder may represent debris. Recommend correlation with urinalysis. Right Knee: cute appearing comminuted oblique mildly displaced distal right femoral periprosthetic fracture which is partially imaged on this exam but at least extends to the distal diaphysis of the right femur. Right femur radiographs might be considered to image the full extent of the fracture. Right Knee CT: 1. Acute oblique comminuted mildly displaced distal right femoral periprosthetic fracture that extends from the distal diaphysis to the femoral component of the right knee arthroplasty. 2. No proximal right tibial or fibular fracture. Ordered Studies 11/12/18 20:47 CT abd pelvis wo con Stat CT cervical spine wo con Stat CT chest wo con Stat CT head/brain wo con Stat CT lumbar spine wo con Stat CT thoracic spine wo con Stat 11/13/18 00:10 CT knee LT wo con Urgent 11/13/18 08:56 US renal/blad retro comp Urgent 11/13/18 20:52 CT knee RT wo con Urgent 11/14/18 12:55 FL femur LT 2V Routine FL fluoroscopy <1hr Routine Hospital Course (1) Closed femur fracture: Patient is an 83 yr female who presents with fall and T4, T5, and L5 compression deformities and acute left distal femur fracture. Mechanical Fall Also fell 2 weeks ago Acute Left and Right femur periprosthetic femur fractures Imaging Studies reviewed Appreciate Orthopedics Input Pain control Patient needs Complicated Surgery recommended the patient to be transferred to [facility] for further management as patient would require a complicated surgery. Accepted the patient Updated Family Compression fracture of thoracic vertebra Age indeterminate May need MRI thoracolumbar spine after fixing acute fracture Orthopedics following PANTERA on CKD IV: Likely ATN Cr:1.8 in May 2018 Cr: 2.6>>3.19 Appreciate Nephrology Input Continue gentle IV fluids Lasix, Lisinopril held Hyperkalemia:Resolved Likely 2/2 to above S/P kayexalate Monitor potassium levels Lisinopril held H/O HTN Hypotension: BP meds held On IV fluids BP more stable today UTI: Urine Culture:pending Continue Ceftriaxone DM II: A1C: 6.0 Hold PO meds Continue ISS H/O gout Continue allopurinol. Anemia of chronic kidney disease: Hb stable Monitor Transfuse PRBCs as needed Generalized osteoarthritis On Tramadol PRN Nephrolithiasis H/O recurrent UTIs On Flomax Depression On Celexa GERD: on Protonix DVT Px: as per orthopedics Re: Planned for procedure Code Status: family is okay with intubation, but no CPR or shocks as per admitting physician Disposition Plan to transfer to [facility] for further management Social service for discharge planning Total Time Total Time Spent Total Time Spent (In Minutes): 45 minutes Total Time Includes: Examination of the Patient, Discharge Planning, Medication Reconciliation, Communication With Other Providers and Other Discharge Plan Discharge Items Patient Disposition: Transfer [facility] Reason For Visit: FALL AND AMBULATORY DYSFUNCTION Discharge Diagnosis: Acute Left and Right femur periprosthetic femur fractures ATN, Anemia, UTI, Compression fracture of thoracic vertebra Hyperkalemia--resolved Condition: Fair Discharge Goals: Decrease discomfort, Improve disease control and Improve function Activity: Per 'Additional Instructions' section Non-emergency contact: Primary Care Provider and Surgeon Call non-emergency contact if: you have any medication questions, your symptoms worsen, your pain is not controlled, your pain is worsening, your pain is unusual for you, your pain is concerning for you and you have a fever Diet: Carb Consistent or DM2 Addtl Provider Instructions: Follow up with at [facility] for further management Your Blood Pressure medications were held during your hospital stay at [facility]. Please discuss with for further management of your medications. Prescriptions: Continue albuterol sulfate 2.5 mg /3 mL (0.083 %) Solution For Nebulization 2.5 mg INHALATION Q4 PRN (Reason: Shortness Of Breath) RF: 0 citalopram 10 mg Tablet 10 mg PO DAILY RF: 0 lisinopril 20 mg Tablet 20 mg PO DAILY RF: 0 hydralazine 25 mg Tablet 25 mg PO TID RF: 0 cranberry conc-ascorbic acid 140-100 mg Capsule 1 tab PO DAILY RF: 0 allopurinol 100 mg Tablet 100 mg PO BID RF: 0 tramadol 50 mg Tablet 50 mg PO Q12 PRN (Reason: Pain) RF: 0 triamcinolone acetonide 0.1 % Cream 1 applic TOPICAL BID PRN (Reason: LOWER EXTREMITIES) RF: 0 tamsulosin 0.4 mg Capsule 0.4 mg PO DAILY RF: 0 sulfacetamide sodium 10 % Drops 1 drp OPR TID RF: 0 pantoprazole 40 mg Tablet,Delayed Release (Dr/Ec) 40 mg PO DAILY RF: 0 metoprolol tartrate 50 mg Tablet 50 mg PO BID RF: 0 docusate sodium [DOK] 100 mg Capsule 100 mg PO BID RF: 0 furosemide [Lasix] 20 mg Tablet 20 mg PO DAILY PRN (Reason: LEG SWELLING, WT GAIN) RF: 0 glipizide 5 mg Tablet 2.5 mg PO BIDM RF: 0 acetaminophen [Tylenol] 325 mg Capsule 650 mg PO Q8 RF: 0 [id number] [Caltrate 600-D Plus Minerals] 600 mg calcium- 800 unit-50 mg Tablet 1 tab PO BID RF: 0 magnesium oxide 400 mg magnesium Tablet 400 mg PO DAILY RF: 0 Stand-Alone Forms: [facility] Discharge Orders: Discharge Order (Routine); Ordered 11/14/18 Ordered By: Ash Weiner Admission Data Admit Date/Time: 11/13/18 01:26 Attending Provider: Ash Weiner Admit Provider: Brice Woods Primary Care Provider: Jonathan Marshall V Other Providers: Brice Woods ; Shira Cohen ; Cal Arita ; Larissa York I ; Ewelina Jones ; Jessica Robertson ; Kilo Marsh ; Scar Bloom ; Alejandro Adam Service: Surgical Services Other Pending Studies at Discharge: Yes Studies:: Urine Culture
[2018-11-14] MEDS: HYDROmorphone INJ 0.5 MG/0.5 ML SYR IV PRN (12:21)
== END 2018-11-14 12:31 | disposition short-term general hospital (02) | DRG 533 ==
LOC: ED 20:24 → 3N 11-13 01:26

== ENCOUNTER 2019-04-12 21:06 | Inpatient (IN) ==
--- OUTSIDE RECORDS SUMMARY | 2019-04-12 21:10 | External Medical Summary | Continuity of Care Document ---
:1935 Demographics Address [address] [address] Phone Unavailable Preferred Language Unknown Marital Status Unknown Mandaen Affiliation Unknown Race White Ethnic Group Unknown Author Name Kirill Huffman Address Unavailable Unavailable , Care Team Providers Name Role Phone Kristal Huffman E. Unavailable [email or web address] Unavailable Unavailable Problems Active medical history not documented Allergies and Adverse Reactions Allergy history not documented Medications Medications not documented Procedures Procedures not documented Immunizations Immunizations not documented Plan of Treatment Planned Observations Planned Goals not documented Results No Known Results Results not documented
[2019-04-12 21:59] LABS: Basophils # (auto) 0.02 K/uL (0-0.2); Basophils % (auto) 0.2 %; Eosinophils # (auto) 0.26 K/uL (0-0.5); Eosinophils % (auto) 2.9 %; Hematocrit (blood only) 32.1 % (37-47); Hemoglobin 10.7 g/dL (12.0-16.0); Immature Granulocytes # (auto) 0.03 K/uL (0.00-0.02); Immature Granulocytes % (auto) 0.3 %; Lymphocytes # (auto) 1.78 K/uL (1.2-3.4); Mean Corpuscular Hgb Conc 33.3 g/dL (32-36); Mean Corpuscular Volume 113.8 fL (80-100); Mean Platelet Volume 12.3 fL (7.4-10.4); Monocytes # (auto) 0.76 K/uL (0.11-0.59); Monocytes % (auto) 8.5 %; Neutrophils # (auto) 6.05 K/uL (1.4-6.5); Neutrophils % (auto) 68.1 %; Platelet Count 231 K/uL (130-400); RDW Coefficient of Variation 16.1 % (11.5-14.5); RDW Standard Deviation 67.3 fL (36.4-46.3); Red Blood Count 2.82 M/uL (4.2-5.4)
--- NOTE | 2019-04-12 22:10 | XRay Report ---
XR chest 1V portable CLINICAL HISTORY: 83 years-old Female presenting with Dyspnea. TECHNIQUE: Portable upright AP view of the chest was obtained. COMPARISON: 11/12/2018. FINDINGS: Low lung volumes with overall worsened aeration from prior. The cardiac silhouette is largely obscure d. Perihilar added density with bronchial wall cuffing suggested. Increased prominence of pulmonary v asculature. No large effusion or pneumothorax. Advanced degenerative changes of the left glenohumeral joint. Gas-filled colon noted below the left diaphragm. IMPRESSION: 1. Worsening lung aeration, which is very low on the current exam. 2. Increasing congestive change and volume overload suspected. Less likely differential consideratio ns include bronchitis or reactive airways disease. Electronically signed by: Hans Ragland M.D. 04/12/2019 10:09 PM
[2019-04-12 22:11] LABS: Partial Thromboplastin Time 27.4 Seconds (21.0-31.0); Prothrombin Time 10.1 Seconds (9.0-12.0)
[2019-04-12 22:14] LABS: Alanine Aminotransferase 31 U/L (12-78); Albumin Level 3.6 gm/dl (3.4-5.0); Aspartate Aminotransferase 21 U/L (15-37); BUN Creatinine Ratio 29.7 (10-20); Blood Urea Nitrogen 45 mg/dl (7-18); Calcium 10.5 mg/dl (8.5-10.1); Carbon Dioxide 37 mmol/L (21-32); Chloride 104 mmol/L (98-107); Creatinine Clr Calc Pharmacy 24.8 ml/min; Est GFR (African American) 35.8; Est GFR (Non-African American) 30.9; Glucose 142 mg/dl (70-99); Potassium 4.6 mmol/L (3.5-5.1); Sodium 143 mmol/L (136-145)
[2019-04-12 22:19] LABS: Alkaline Phosphatase 124 U/L (45-117); Bilirubin,Total 0.3 mg/dl (0.2-1); Globulin 3.5 gm/dl (2.5-4.0); Total Protein 7.1 gm/dl (6.4-8.2); Troponin I < 0.015 ng/ml (0-0.045)
[2019-04-12 22:25] LABS: Anisocytosis Present; Basophilic Stippling 1+
--- NOTE | 2019-04-12 22:28 | CT Scan Report ---
CT head/brain wo con CLINICAL HISTORY: 83 years-old Female presenting with fall head pain. TECHNIQUE: Multidetector CT imaging of the head was performed without the use of intravenous contrast . IV contrast: None. One or more dose lowering techniques were used consistent with the principles of ALARA (as low as reasonably achievable), including automatic exposure control, mA or kV adjustment t o individual patient size, and/or use of iterative reconstruction. COMPARISON: 11/12/2018. CT DOSE (mGy.cm): The estimated cumulative dose is 899.90 mGy.cm. FINDINGS: Pruner topogram: Unremarkable. Proportional ventricular and sulcal prominence, likely age-related parenchymal volume loss. No hemorr lex. Periventricular and subcortical white matter hypoattenuation, nonspecific but likely indicative of chronic small vessel ischemic change. No acute territorial infarct. No mass effect or midline gavin ft. No extra-axial fluid collection. Paranasal sinuses and mastoid air cells clear. Calvarium intact. Absent [place] lenses. IMPRESSION: 1. Chronic small vessel ischemic change. No acute intracranial abnormality. Electronically signed by: Hans Ragland M.D. 04/12/2019 10:26 PM
[2019-04-12] MEDS ORDERED: FUROSEMIDE 60 MG in SYRINGE 0 ML IV STA (23:08)
[2019-04-12] MEDS ORDERED: ALBUT/IPRATROP 3MG/0.5MG NEB 3 ML VIAL NEB STA (23:09)
[2019-04-12] MEDS ORDERED: FUROSEMIDE 40 MG/4 ML VIAL IV STA (23:15)
[2019-04-12 23:42] LABS: Appearance Urine Cloudy (Clear); Bacteria Urine Automated Negative (Negative); Bilirubin Urine Negative (Negative); Blood Urine Trace (Negative); Color Urine Yellow; Epithelial Cell Urine Auto 20-30 /lpf (0-5); Glucose Urine UA Negative (Negative); Ketones Urine Negative (Negative); Leukocyte Esterase Urine 2+ (Negative); Nitrite Urine Negative (Negative); Protein Urine 1+ (Negative); Specific Gravity Urine 1.023 (1.000-1.030); Urobilinogen Urine Negative (Negative); WBC Urine Automated >30 /hpf (0-5)
[2019-04-12 23:43] LABS: Magnesium 2.5 mg/dl (1.8-2.4)
[2019-04-12] MEDS ORDERED: FUROSEMIDE 40 MG/4 ML VIAL IV ONE (23:46)
[2019-04-12 23:59] LABS: Base Excess ABG 7.8 mEq/L (-9-1.8); HCO3 ABG 37 mmol/L (19-24); PCO2 ABG 81 mmHg (35-46); PO2 ABG 105 mm/Hg (80-95); pH ABG 7.28 (7.35-7.45)
[2019-04-13 00:01] LABS: Allen Test Pos (Pos)
[2019-04-13 00:48] LABS: Cast Urine Automated 0 /lpf (0-5)
[2019-04-13] MEDS ORDERED: PIPERACILL/TAZOBAC CONSULT ACTIVE PRN (01:08)
[2019-04-13] MEDS ORDERED: ERTAPENEM SODIUM 10 ML IV STA (01:12)
[2019-04-13] MEDS ORDERED: PIPERACILLIN/TAZOBACTAM 4.5 GM in DEXTROSE 5% 100 ML IV STA (01:13)
--- NOTE | 2019-04-13 01:37 | History & Physical Report ---
Date of Service April 13, 2019 Assessment & Plan (1) Encephalopathy: Multifactorial : Acute on chronic hypoxemic, hypercapnic respiratory failure (respiratory acidosis) secondary to decompensated RSHF, pulmonary hypertension on recent TTE at [facility], probable undiagnosed ELIZABETH Partially treated complicated UTI (ESBL E. coli on outpatient urine cultures) Patient not septic hypertension, stable CAD as per records CRI, creatinine better than baseline chronic anemia secondary to CKD, hemoglobin at baseline DM 2 on oral medications, well-controlled as of recent outpatient hemoglobin A1c of 5.3, November 2018 history subdural hematoma as per records PCU BiPAP Follow up ABG Diuretic Rx, follow renal function Strict I/Os, daily weights, CHF education Update TTE, Cardiology consult RE CHF Pulmonary consult RE respiratory failure, possible ELIZABETH Continue Invanz course for complicated UTI ISS BG goal 1 40-1 80, may need basal insulin to attain goal, update hemoglobin A1C DVT prophylaxis. Heparin subcu Conditional CODE STATUS as per daughter/POA Ms. Mare Rodriguez. (contact # [phone]) Okay with intubation if necessary, no CPR/compressions. Total critical time was 50 minutes. History of Present Illness Chief Complaint: Worsening hypoxemia as per records Primary Care Provider: Jonathan Marshall, DO History obtained from patient, family, and records. Limited history from patient secondary to disorientation. Medical history significant for chronic respiratory failure on home O2, right- sided heart failure as per records, pulmonary hypertension on TTE November 2018, hypertension, CAD as per records, CRI (baseline creatinine 1.6), chronic anemia (baseline hemoglobin 9-10),, DM 2 on oral medications, ESBL E. coli UTI ongoing Invanz Rx, history subdural hematoma as per records. Recent confinement [facility] every 2018 for bilateral femoral fracture fractures secondary to mechanical fall status post surgery. Postop course complicated by hypotension, respiratory failure, pulmonary congestion. TTE during confinement showed EF of 70%. Hyperdynamic LV contractility with mid cavity obliteration and a late peaking gradient of 55 mmHg. RV systolic function qualitatively normal. Severe pulmonary hypertension present estimated PASP 65 mmHg. Patient was oxygen dependent upon discharge to [facility] for rehab. 2 weeks ago, patient noted by family to be confused. Patient prescribed oral antibiotic for UTI which later grew ESBL E. coli. Patient later switched to 7- day course Invanz a few days ago. The last 2 days, patient noted to be more confused than usual as per daughter. Increasing O2 requirement as per patient's daughter. No unusual cough symptoms as per daughter. Patient denies chest pain, S OB. Patient fell at home today landing on her right side. No head trauma. Decreased responsiveness noted. Patient brought to the emergency room for further evaluation. 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 Allergies Allergy/AdvReac Type Severity Reaction Status Date / Time codeine AdvReac Intermediate Neuro Verified 04/12/19 22:45 Changes haloperidol [From Haldol] AdvReac Intermediate confusion Verified 04/13/19 09:15 tramadol AdvReac Intermediate confusion Verified 04/13/19 09:15 morphine AdvReac confusion Verified 04/13/19 09:15 Home Medications Home Medications Medication Instructions Recorded Confirmed Type acetaminophen [Tylenol] 650 mg PO Q8H 11/12/18 04/12/19 History allopurinol 100 mg PO BID 11/12/18 04/12/19 History citalopram 10 mg PO DAILY 11/12/18 04/12/19 History cranberry conc-ascorbic acid 1 cap PO DAILY 11/12/18 04/12/19 History docusate sodium [DOK] 100 mg PO BID 11/12/18 04/12/19 History furosemide [Lasix] 20 mg PO Q2D 11/12/18 04/12/19 History glipizide 2.5 mg PO BIDM 11/12/18 04/12/19 History hydralazine 25 mg PO TID 11/12/18 04/12/19 History magnesium oxide 400 mg PO DAILY 11/12/18 04/12/19 History metoprolol tartrate 50 mg PO BID 11/12/18 04/12/19 History pantoprazole 40 mg PO DAILY 11/12/18 04/12/19 History [id number]-ftin-boron 1 tab PO BID 04/12/19 04/12/19 History [Caltrate 600-D Plus Minerals] aspirin 81 mg PO DAILY 04/12/19 04/12/19 History atorvastatin 40 mg PO DAILY 04/12/19 04/12/19 History cyanocobalamin (vitamin B-12) 1,000 mcg PO DAILY 04/12/19 04/12/19 History [Vitamin B-12] diclofenac sodium [Voltaren] 2 g TOPICAL QID 04/12/19 04/12/19 History vfetijvf-upnc-OP-calcium-mins 1 tab PO DAILY 04/12/19 04/12/19 History [Women's One Daily] polyethylene glycol 3350 17 g PO DAILY 04/12/19 04/12/19 History Past Med/Surg History Medical History Diabetes (Chronic) Hypertension (Chronic) Family History Other Family history non-contributory Social History Preferred Language: Irish Communication Ability: Effective [employer]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 [employer] Required: No Beliefs That Will Affect Care: None marital status: Current Living Situation: Spouse Other Information That Helps Us Care for You: No Feels Safe at Home: Yes Safety Concerns: Feels Safe At This Time Smoking Status: Never smoker Second Hand Exposure: No Hx Alcohol Use: No Hx Substance Use: No Review of Systems Review of Systems: Could not be reliably obtained Physical Exam Physical Exam: GENERAL: disoriented, hard of hearing, respiratory distress SKIN: Pallor , warm HEENT: Pale palpebral conjunctivae, no ptosis, dry buccal mucosa, nasal cannula in place NECK : Supple, no tenderness CHEST : Bibasilar rales , no tenderness HEART : RRR, no obvious murmurs ABDOMEN: Some distention, nontender EXTREMITIES : Bilateral LE swelling, no LE tenderness, no other conspicuous deformities noted NEUROLOGIC : Disoriented, hard of hearing, no facial asymmetry, no other gross focality Results & Data Vital Signs (Past 12 Hours) Vital Signs Temp Pulse Pulse Resp BP Pulse Ox 04/13/19 01:15 88 24 92 04/12/19 23:30 90 28 H 135/54 L 96 04/12/19 23:19 85 24 95 04/12/19 23:01 88 32 H 94 04/12/19 23:00 85 30 H 129/53 L 94 04/12/19 22:41 87 35 H 95 04/12/19 22:40 85 32 H 142/58 H 94 04/12/19 22:30 87 26 H 94 04/12/19 22:00 90 34 H 95 04/12/19 21:32 90 26 H 96 04/12/19 21:24 5 L 04/12/19 21:13 37.0 C 94 H 24 141/51 H 92 04/12/19 21:12 87 34 H 141/51 H 96 Laboratory Results Laboratory Results WBC 8.90 K/uL (4.8-10.8) 04/12/19 20:23 RBC 2.82 M/uL (4.2-5.4) L 04/12/19 20:23 Hgb 10.7 g/dL (12.0-16.0) L 04/12/19 20:23 Hct 32.1 % (37-47) L 04/12/19 20:23 MCV 113.8 fL (80-100) H 04/12/19 20:23 MCH 37.9 pg (25-34) H 04/12/19 20:23 MCHC 33.3 g/dL (32-36) 04/12/19 20:23 RDW Std Deviation 67.3 fL (36.4-46.3) H 04/12/19 20:23 RDW Coeff of Devin 16.1 % (11.5-14.5) H 04/12/19 20:23 Plt Count 231 K/uL (130-400) 04/12/19 20:23 MPV 12.3 fL (7.4-10.4) H 04/12/19 20:23 Immature Gran % (Auto) 0.3 % 04/12/19 20:23 Neut % (Auto) 68.1 % 04/12/19 20:23 Lymph % (Auto) 20.0 % 04/12/19 20:23 Moffat % (Auto) 8.5 % 04/12/19 20:23 Eos % (Auto) 2.9 % 04/12/19 20:23 Baso % (Auto) 0.2 % 04/12/19 20:23 Immature Gran # (Auto) 0.03 K/uL (0.00-0.02) H 04/12/19 20:23 Neut # (Auto) 6.05 K/uL (1.4-6.5) 04/12/19 20:23 Lymph # (Auto) 1.78 K/uL (1.2-3.4) 04/12/19 20:23 Moffat # (Auto) 0.76 K/uL (0.11-0.59) H 04/12/19 20:23 Eos # (Auto) 0.26 K/uL (0-0.5) 04/12/19 20:23 Baso # (Auto) 0.02 K/uL (0-0.2) 04/12/19 20:23 Basophilic Stippling 1+ 04/12/19 20:23 Anisocytosis Present 04/12/19 20:23 PT 10.1 Seconds (9.0-12.0) 04/12/19 20: INR 1.0 (0.9-1.1) 04/12/19 20:23 APTT 27.4 Seconds (21.0-31.0) 04/12/19 20:23 PTT Ratio 1.0 04/12/19 20:23 ABG pH 7.28 (7.35-7.45) L 04/12/19 23:43 ABG pCO2 81 mmHg (35-46) H 04/12/19 23:43 ABG pO2 105 mm/Hg (80-95) H 04/12/19 23:43 ABG HCO3 37 mmol/L (19-24) H 04/12/19 23:43 ABG O2 Saturation 97.0 % (90-95) H 04/12/19 23:43 ABG Base Excess 7.8 mEq/L (-9-1.8) H 04/12/19 23:43 Henry Test Pos (Pos) 04/12/19 23:43 Barometric Pressure 732.4 mm/Hg 04/12/19 23:43 Oxygen Given 5L 04/12/19 23:43 Sodium 143 mmol/L (136-145) 04/12/19 20:23 Potassium 4.6 mmol/L (3.5-5.1) 04/12/19 20:23 Chloride 104 mmol/L (98-107) 04/12/19 20:23 Carbon Dioxide 37 mmol/L (21-32) H 04/12/19 20:23 Anion Gap 2.0 (3-11) L 04/12/19 20:23 BUN 45 mg/dl (7-18) H 04/12/19 20:23 Creatinine 1.53 mg/dl (0.6-1.2) H 04/12/19 20:23 Est Cr Clr Drug Dosing 24.8 ml/min 04/12/19 20:23 Est GFR ( Amer) 35.8 04/12/19 20:23 Est GFR (Non-Af Amer) 30.9 04/12/19 20:23 BUN/Creatinine Ratio 29.7 (10-20) H 04/12/19 20:23 Glucose 142 mg/dl (70-99) H 04/12/19 20:23 Calcium 10.5 mg/dl (8.5-10.1) H 04/12/19 20:23 Magnesium 2.5 mg/dl (1.8-2.4) H 04/12/19 20:23 Total Bilirubin 0.3 mg/dl (0.2-1) 04/12/19 20:23 AST 21 U/L (15-37) 04/12/19 20:23 ALT 31 U/L (12-78) 04/12/19 20:23 Alkaline Phosphatase 124 U/L (45-117) H 04/12/19 20:23 Troponin I < 0.015 ng/ml (0-0.045) 04/12/19 20:23 Total Protein 7.1 gm/dl (6.4-8.2) 04/12/19 20:23 Albumin 3.6 gm/dl (3.4-5.0) 04/12/19 20:23 Globulin 3.5 gm/dl (2.5-4.0) 04/12/19 20:23 Albumin/Globulin Ratio 1.0 (0.9-2) 04/12/19 20:23 Urine Color Yellow 04/12/19 Unknown Urine Appearance Cloudy (Clear) A 04/12/19 Unknown Urine pH 5.0 (4.5-7.5) 04/12/19 Unknown Ur Specific [place] 1.023 (1.000-1.030) 04/12/19 Unknown Urine Protein 1+ (Negative) H 04/12/19 Unknown Urine Glucose (UA) Negative (Negative) 04/12/19 Unknown Urine Ketones Negative (Negative) 04/12/19 Unknown Urine Blood Trace (Negative) H 04/12/19 Unknown Urine Nitrite Negative (Negative) 04/12/19 Unknown Urine Bilirubin Negative (Negative) 04/12/19 Unknown Urine Urobilinogen Negative (Negative) 04/12/19 Unknown Ur Leukocyte Esterase 2+ (Negative) H 04/12/19 Unknown Urine WBC (Auto) >30 /hpf (0-5) H 04/12/19 Unknown Urine RBC (Auto) 5-10 /hpf (0-4) H 04/12/19 Unknown U Hyaline Cast (Auto) 0 /lpf (0-5) 04/12/19 Unknown U Epithel Cells (Auto) 20-30 /lpf (0-5) H 04/12/19 Unknown Urine Bacteria (Auto) Negative (Negative) 04/12/19 Unknown Urine Yeast Budding w/ Hyphae (None Prsent) A 04/12/[address] head: Chronic small vessel ischemic change. No acute intracranial abnormality. Chest x-ray showed 1. Worsening lung aeration, which is very low on the current exam. 2. Increasing congestive change and volume overload suspected. Less likely differential considerations include bronchitis or reactive airways disease. EKG as per my interpretation : Rate 90, NSR, LAD, LAFB, no ischemia
--- NOTE | 2019-04-13 01:55 | Emergency Department Note ---
Entered by Juan Parra acting as a scribe for Vipul Hay DO History of Present Illness General Chief complaint: Shortness of Breath/Dyspnea Stated complaint: WEAKNESS, SOB Source: patient and family (daughter) Limitations: no limitations History of Present Illness Onset (ago): day(s) (few) Location: chest Pain Consistency: + other (worsening) Maximum Pain Intensity: 0 Quality: + constant Associated symptoms: + denies other symptoms (diarrhea, pain with urination, burning with urination, urinating frequently, abdominal pain), + weakness and + other (runny nose, confusion); no fever/chills and no nausea/vomiting Treatments prior to arrival: other (Mucinex) The patient is a 83 white female w/ PMHx HTN, CKD, diabetes who presents to the ED w/ CC of worsening and constant SOB beginning few days ago. The patient's daughter states the patient had a UTI two weeks ago. The daughter states the patient was put on an antibiotic for 10 days and notes the patient did not improve. The daughter states the patient was then put on 5 days of Invanz and notes today was the last day. The daughter states the patient is worse than she was 2 days ago. The daughter notes the patient has been more lethargic and con fused. The patient's daughter states the patient gets confused about what day it is and other basic information. The patient states her SOB has gotten worse and is worse with movement. The patient states she developed a runny nose during the past 2 weeks and has been taking Mucinex for it. The patient notes she fell today on her right side and states she does not have any pain from the fall. The patient denies abdominal pain, nausea, vomiting, diarrhea, pain with urination, burning with urination, urinating frequently, fevers, and taking blood thinners. The patient's daughter notes the patient normally wears 2 L of O2 all the time. She states the patient lives with her . Home Medications Home Medications Medication Instructions Recorded Confirmed Type acetaminophen [Tylenol] 650 mg PO Q8H 11/12/18 04/12/19 History allopurinol 100 mg PO BID 11/12/18 04/12/19 History citalopram 10 mg PO DAILY 11/12/18 04/12/19 History cranberry conc-ascorbic acid 1 cap PO DAILY 11/12/18 04/12/19 History docusate sodium [DOK] 100 mg PO BID 11/12/18 04/12/19 History furosemide [Lasix] 20 mg PO Q2D 11/12/18 04/12/19 History glipizide 2.5 mg PO BIDM 11/12/18 04/12/19 History hydralazine 25 mg PO TID 11/12/18 04/12/19 History magnesium oxide 400 mg PO DAILY 11/12/18 04/12/19 History metoprolol tartrate 50 mg PO BID 11/12/18 04/12/19 History pantoprazole 40 mg PO DAILY 11/12/18 04/12/19 History Ev-E2-jrd-fyor-hdq-obsf-boron 1 tab PO BID 04/12/19 04/12/19 History [Caltrate 600-D Plus Minerals] aspirin 81 mg PO DAILY 04/12/19 04/12/19 History atorvastatin 40 mg PO DAILY 04/12/19 04/12/19 History cyanocobalamin (vitamin B-12) 1,000 mcg PO DAILY 04/12/19 04/12/19 History [Vitamin B-12] diclofenac sodium [Voltaren] 2 g TOPICAL QID 04/12/19 04/12/19 History eloapwgh-ptzi-XH-calcium-mins 1 tab PO DAILY 04/12/19 04/12/19 History [Women's One Daily] polyethylene glycol 3350 17 g PO DAILY 04/12/19 04/12/19 History Allergies Allergy/AdvReac Type Severity Reaction Status Date / Time codeine AdvReac Intermediate Neuro Verified 04/12/19 22:45 Changes Past Med/Surg History Medical History Diabetes (Chronic) Hypertension (Chronic) Family History Other Family history non-contributory Social History Preferred Language: Martiniquais Communication Ability: Effective Beliefs That Will Affect Care: None Current Living Situation: Spouse Feels Safe at Home: Yes Smoking Status: Never smoker Second Hand Exposure: No Hx Alcohol Use: No Hx Substance Use: No Review of Systems See HPI for pertinent positives & negatives. and A total of 10 systems reviewed and were otherwise negative Physical Exam Vital Signs Vital Signs - 24 hr 04/12/19 21:12 04/12/19 21:13 04/12/19 21:24 Temperature 37.0 C Temperature Source Oral Sepsis Recent Fever Within 48 Hours No Sepsis Action Taken by Nursing No Action Required Pulse Oximetry Post Tiitration 97 Pulse Rate 87 94 H Pulse Rate [Right Finger] Pulse Rate from SpO2 Sensor 88 Pulse Rhythm Regular Pulse Strength Normal Respiratory Rate 34 H 24 Respiratory Effort / Characteristics Non-Labored Respiratory Depth Normal Respiratory Pattern Regular Blood Pressure 141/51 H 141/51 H Blood Pressure Mean 81 81 Blood Pressure Position Lying Pulse Oximetry 96 92 5 L Oxygen Delivery Method Room Air Nasal Cannula Oxygen Flow Rate Fraction of Inspired Oxygen 04/12/19 21:32 04/12/19 22:00 04/12/19 22:30 Temperature Temperature Source Sepsis Recent Fever Within 48 Hours Sepsis Action Taken by Nursing Pulse Oximetry Post Tiitration Pulse Rate 90 90 87 Pulse Rate [Right Finger] Pulse Rate from SpO2 Sensor 91 H 90 88 Pulse Rhythm Pulse Strength Respiratory Rate 26 H 34 H 26 H Respiratory Effort / Characteristics Respiratory Depth Respiratory Pattern Blood Pressure Blood Pressure Mean Blood Pressure Position Pulse Oximetry 96 95 94 Oxygen Delivery Method Oxygen Flow Rate Fraction of Inspired Oxygen 04/12/19 22:40 04/12/19 22:41 04/12/19 23:00 Temperature Temperature Source Sepsis Recent Fever Within 48 Hours Sepsis Action Taken by Nursing Pulse Oximetry Post Tiitration Pulse Rate 85 87 85 Pulse Rate [Right Finger] Pulse Rate from SpO2 Sensor 85 87 86 Pulse Rhythm Pulse Strength Respiratory Rate 32 H 35 H 30 H Respiratory Effort / Characteristics Respiratory Depth Respiratory Pattern Blood Pressure 142/58 H 129/53 L Blood Pressure Mean 86 78 Blood Pressure Position Pulse Oximetry 94 95 94 Oxygen Delivery Method Oxygen Flow Rate Fraction of Inspired Oxygen 04/12/19 23:01 04/12/19 23:19 04/12/19 23:30 Temperature Temperature Source Sepsis Recent Fever Within 48 Hours Sepsis Action Taken by Nursing Pulse Oximetry Post Tiitration Pulse Rate 88 90 Pulse Rate [Right Finger] 85 Pulse Rate from SpO2 Sensor 88 89 Pulse Rhythm Pulse Strength Respiratory Rate 32 H 24 28 H Respiratory Effort / Characteristics Spontaneous SOB on Exertion Respiratory Depth Respiratory Pattern Blood Pressure 135/54 L Blood Pressure Mean 81 Blood Pressure Position Pulse Oximetry 94 95 96 Oxygen Delivery Method Nasal Cannula Oxygen Flow Rate 4 Fraction of Inspired Oxygen 04/12/19 23:31 04/13/19 00:00 04/13/19 00:01 Temperature Temperature Source Sepsis Recent Fever Within 48 Hours Sepsis Action Taken by Nursing Pulse Oximetry Post Tiitration Pulse Rate 84 89 86 Pulse Rate [Right Finger] Pulse Rate from SpO2 Sensor 85 88 87 Pulse Rhythm Pulse Strength Respiratory Rate 31 H 30 H 26 H Respiratory Effort / Characteristics Respiratory Depth Respiratory Pattern Blood Pressure 138/56 L Blood Pressure Mean 83 Blood Pressure Position Pulse Oximetry 96 94 94 Oxygen Delivery Method Oxygen Flow Rate Fraction of Inspired Oxygen 04/13/19 00:30 04/13/19 00:31 04/13/19 01:00 Temperature Temperature Source Sepsis Recent Fever Within 48 Hours Sepsis Action Taken by Nursing Pulse Oximetry Post Tiitration Pulse Rate 91 H 86 86 Pulse Rate [Right Finger] Pulse Rate from SpO2 Sensor 91 H 85 88 Pulse Rhythm Pulse Strength Respiratory Rate 27 H 24 23 Respiratory Effort / Characteristics Respiratory Depth Respiratory Pattern Blood Pressure 132/59 L 141/60 H Blood Pressure Mean 83 87 Blood Pressure Position Pulse Oximetry 93 93 93 Oxygen Delivery Method Oxygen Flow Rate Fraction of Inspired Oxygen 04/13/19 01:01 04/13/19 01:15 04/13/19 01:30 Temperature Temperature Source Sepsis Recent Fever Within 48 Hours Sepsis Action Taken by Nursing Pulse Oximetry Post Tiitration Pulse Rate 90 88 86 Pulse Rate [Right Finger] Pulse Rate from SpO2 Sensor 89 86 Pulse Rhythm Pulse Strength Respiratory Rate 27 H 24 29 H Respiratory Effort / Characteristics Spontaneous SOB on Exertion Respiratory Depth Normal Respiratory Pattern Regular Blood Pressure 124/47 L Blood Pressure Mean 72 Blood Pressure Position Pulse Oximetry 93 92 91 Oxygen Delivery Method Oxygen Flow Rate Fraction of Inspired Oxygen 30 GENERAL: alert, Sitting up in bed. Disheveled. Chronically-ill appearing. On 5L of O2 nasal cannula. Moderate distress. EYE EXAM: normal conjunctiva OROPHARYNX: no exudate, no erythema, lips, buccal mucosa, and tongue normal and mucous membranes are moist NECK: supple, no nuchal rigidity, no adenopathy, non-tender LUNGS: Clear to auscultation. Normal chest wall mechanics. Diminished breath sounds bilaterally at the bases. HEART: no murmurs, S1 normal and S2 normal ABDOMEN: abdomen soft, non-tender, normo-active bowel sounds, no masses, no rebound or guarding. BACK: Back is symmetrical on inspection and there is no deformity, no midline tenderness, no CVA tenderness. SKIN: no rashes and no bruising UPPER EXTREMITIES: upper extremities are grossly normal. LOWER EXTREMITIES: Pitting edema bilaterally. NEURO EXAM: Awake. Alert. Following commands. Not oriented to year. No focal deficits. cranial nerves II-XII grossly intact, normal speech, no gross weakness of arms, no gross weakness of legs. Course ED COURSE: Vital signs were reviewed and showed hypertension and hypoxia. The patients medical record was reviewed The above diagnostic studies were performed and reviewed. ED treatments and interventions as stated above. 2135: The patient was evaluated in room C4. A complete history and physical examination was performed. 2307: I discussed the patient's case with Dr. Cardoza - [facility]. He will evaluate the patient for further management 2317: Upon reevaluation, the patient is getting admitted. I discussed my findings with the patient and she understands and agrees with the treatment plan. Based on the patients age, coexisting illnesses, exam and lab findings the decision to treat as an inpatient was made. The patient remained stable while under my care. The patient will be evaluated for further management. Administered Medications Discontinued Medications Albuterol (Duoneb) 3 ml NEB NOW STA Stop: 04/12/19 23:10 Last Admin: 04/12/19 23:26 Dose: 3 ml Documented by: [id number] Furosemide (Lasix) 40 mg IV NOW STA Stop: 04/12/19 23:16 Last Admin: 04/12/19 23:51 Dose: Not Given Documented by: [id number] Furosemide (Lasix) Confirm Administered Dose 80 mg IV .STK-MED ONE Stop: 04/12/19 23:47 Last Admin: 04/12/19 23:47 Dose: Not Given Documented by: [id number] Furosemide 60 mg/ Syringe 6 mls @ 4 mls/min IV NOW STA Stop: 04/12/19 23:09 Last Admin: 04/12/19 23:47 Dose: 4 mls/min Documented by: [id number] Medical Decision Making Differential Diagnosis Differential diagnoses includes but is not limited to pneumonia, bronchitis, COPD/Asthma exacerbation, pneumothorax, pulmonary embolism, congestive heart failure, acute coronary syndrome Medical Records Attestation: I reviewed the patient's medical records. Home Medications Current Medication List: was personally reviewed by me Laboratory Data Attestation: I reviewed the patient's lab results. Result diagrams: 04/12/19 20:23 04/12/19 20:23 Lab Results 04/12/19 04/12/19 04/12/19 Range/Units 20:23 20:23 20:23 WBC 8.90 (4.8-10.8) K/uL RBC 2.82 L (4.2-5.4) M/uL Hgb 10.7 L (12.0-16.0) g/dL Hct 32.1 L (37-47) % MCV 113.8 H (80-100) fL MCH 37.9 H (25-34) pg MCHC 33.3 (32-36) g/dL RDW Std Deviation 67.3 H (36.4-46.3) fL RDW Coeff of Devin 16.1 H (11.5-14.5) % Plt Count 231 (130-400) K/uL MPV 12.3 H (7.4-10.4) fL Immature Gran % (Auto) 0.3 % Neut % (Auto) 68.1 % Lymph % (Auto) 20.0 % [place] % (Auto) 8.5 % Eos % (Auto) 2.9 % Baso % (Auto) 0.2 % Immature Gran # (Auto) 0.03 H (0.00-0.02) K/uL Neut # (Auto) 6.05 (1.4-6.5) K/uL Lymph # (Auto) 1.78 (1.2-3.4) K/uL [place] # (Auto) 0.76 H (0.11-0.59) K/uL Eos # (Auto) 0.26 (0-0.5) K/uL Baso # (Auto) 0.02 (0-0.2) K/uL Basophilic Stippling 1+ Anisocytosis Present PT 10.1 (9.0-12.0) Seconds INR 1.0 (0.9-1.1) APTT 27.4 (21.0-31.0) Seconds PTT Ratio 1.0 ABG pH (7.35-7.45) ABG pCO2 (35-46) mmHg ABG pO2 (80-95) mm/Hg ABG HCO3 (19-24) mmol/L ABG O2 Saturation (90-95) % ABG Base Excess (-9-1.8) mEq/L Henry Test (Pos) Barometric Pressure mm/Hg Oxygen Given Sodium 143 (136-145) mmol/L Potassium 4.6 (3.5-5.1) mmol/L Chloride 104 (98-107) mmol/L Carbon Dioxide 37 H (21-32) mmol/L Anion Gap 2.0 L (3-11) BUN 45 H (7-18) mg/dl Creatinine 1.53 H (0.6-1.2) mg/dl Est Cr Clr Drug Dosing 24.8 ml/min Est GFR ( Amer) 35.8 Est GFR (Non-Af Amer) 30.9 BUN/Creatinine Ratio 29.7 H (10-20) Glucose 142 H (70-99) mg/dl Calcium 10.5 H (8.5-10.1) mg/dl Magnesium 2.5 H (1.8-2.4) mg/dl Total Bilirubin 0.3 (0.2-1) mg/dl AST 21 (15-37) U/L ALT 31 (12-78) U/L Alkaline Phosphatase 124 H (45-117) U/L Troponin I < 0.015 (0-0.045) ng/ml Total Protein 7.1 (6.4-8.2) gm/dl Albumin 3.6 (3.4-5.0) gm/dl Globulin 3.5 (2.5-4.0) gm/dl Albumin/Globulin Ratio 1.0 (0.9-2) Urine Color Urine Appearance (Clear) Urine pH (4.5-7.5) Ur Specific [place] (1.000-1.030) Urine Protein (Negative) Urine Glucose (UA) (Negative) Urine Ketones (Negative) Urine Blood (Negative) Urine Nitrite (Negative) Urine Bilirubin (Negative) Urine Urobilinogen (Negative) Ur Leukocyte Esterase (Negative) Urine WBC (Auto) (0-5) /hpf Urine RBC (Auto) (0-4) /hpf U Hyaline Cast (Auto) (0-5) /lpf U Epithel Cells (Auto) (0-5) /lpf Urine Bacteria (Auto) (Negative) Urine Yeast (None Prsent) 04/12/19 04/12/19 Range/Units 23:43 Unknown WBC (4.8-10.8) K/uL RBC (4.2-5.4) M/uL Hgb (12.0-16.0) g/dL Hct (37-47) % MCV (80-100) fL MCH (25-34) pg MCHC (32-36) g/dL RDW Std Deviation (36.4-46.3) fL RDW Coeff of Devin (11.5-14.5) % Plt Count (130-400) K/uL MPV (7.4-10.4) fL Immature Gran % (Auto) % Neut % (Auto) % Lymph % (Auto) % [place] % (Auto) % Eos % (Auto) % Baso % (Auto) % Immature Gran # (Auto) (0.00-0.02) K/uL Neut # (Auto) (1.4-6.5) K/uL Lymph # (Auto) (1.2-3.4) K/uL [place] # (Auto) (0.11-0.59) K/uL Eos # (Auto) (0-0.5) K/uL Baso # (Auto) (0-0.2) K/uL Basophilic Stippling Anisocytosis PT (9.0-12.0) Seconds INR (0.9-1.1) APTT (21.0-31.0) Seconds PTT Ratio ABG pH 7.28 L (7.35-7.45) ABG pCO2 81 H (35-46) mmHg ABG pO2 105 H (80-95) mm/Hg ABG HCO3 37 H (19-24) mmol/L ABG O2 Saturation 97.0 H (90-95) % ABG Base Excess 7.8 H (-9-1.8) mEq/L Henry Test Pos (Pos) Barometric Pressure 732.4 mm/Hg Oxygen Given 5L Sodium (136-145) mmol/L Potassium (3.5-5.1) mmol/L Chloride (98-107) mmol/L Carbon Dioxide (21-32) mmol/L Anion Gap (3-11) BUN (7-18) mg/dl Creatinine (0.6-1.2) mg/dl Est Cr Clr Drug Dosing ml/min Est GFR ( Amer) Est GFR (Non-Af Amer) BUN/Creatinine Ratio (10-20) Glucose (70-99) mg/dl Calcium (8.5-10.1) mg/dl Magnesium (1.8-2.4) mg/dl Total Bilirubin (0.2-1) mg/dl AST (15-37) U/L ALT (12-78) U/L Alkaline Phosphatase (45-117) U/L Troponin I (0-0.045) ng/ml Total Protein (6.4-8.2) gm/dl Albumin (3.4-5.0) gm/dl Globulin (2.5-4.0) gm/dl Albumin/Globulin Ratio (0.9-2) Urine Color Yellow Urine Appearance Cloudy A (Clear) Urine pH 5.0 (4.5-7.5) Ur Specific [place] 1.023 (1.000-1.030) Urine Protein 1+ H (Negative) Urine Glucose (UA) Negative (Negative) Urine Ketones Negative (Negative) Urine Blood Trace H (Negative) Urine Nitrite Negative (Negative) Urine Bilirubin Negative (Negative) Urine Urobilinogen Negative (Negative) Ur Leukocyte Esterase 2+ H (Negative) Urine WBC (Auto) >30 H (0-5) /hpf Urine RBC (Auto) 5-10 H (0-4) /hpf U Hyaline Cast (Auto) 0 (0-5) /lpf U Epithel Cells (Auto) 20-30 H (0-5) /lpf Urine Bacteria (Auto) Negative (Negative) Urine Yeast Budding w/ Hyphae A (None Prsent) Imaging Data Radiologist's Impression: Radiology results as stated below per my review and the radiologist's interpretation: CT head/brain wo con CLINICAL HISTORY: 83 years-old Female presenting with fall head pain. TECHNIQUE: Multidetector CT imaging of the head was performed without the use of intravenous contrast. IV contrast: None. One or more dose lowering techniques were used consistent with the principles of ALARA (as low as reasonably achievable), including automatic exposure control, mA or kV adjustment to individual patient size, and/or use of iterative reconstruction. COMPARISON: 11/12/2018. CT DOSE (mGy.cm): The estimated cumulative dose is 899.90 mGy.cm. FINDINGS: [employer] topogram: Unremarkable. Proportional ventricular and sulcal prominence, likely age-related parenchymal volume loss. No hemorrhage. Periventricular and subcortical white matter hypoattenuation, nonspecific but likely indicative of chronic small vessel ischemic change. No acute territorial infarct. No mass effect or midline shift. No extra-axial fluid collection. Paranasal sinuses and mastoid air cells clear. Calvarium intact. Absent [place] lenses. IMPRESSION: 1. Chronic small vessel ischemic change. No acute intracranial abnormality. Electronically signed by: Hans Ragland M.D. 04/12/2019 10:26 PM XR chest 1V portable CLINICAL HISTORY: 83 years-old Female presenting with Dyspnea. TECHNIQUE: Portable upright AP view of the chest was obtained. COMPARISON: 11/12/2018. FINDINGS: Low lung volumes with overall worsened aeration from prior. The cardiac silhouette is largely obscured. Perihilar added density with bronchial wall cuffing suggested. Increased prominence of pulmonary vasculature. No large effusion or pneumothorax. Advanced degenerative changes of the left glenohumeral joint. Gas-filled colon noted below the left diaphragm. IMPRESSION: 1. Worsening lung aeration, which is very low on the current exam. 2. Increasing congestive change and volume overload suspected. Less likely differential considerations include bronchitis or reactive airways disease. Electronically signed by: Hans Ragland M.D. 04/12/2019 10:09 PM ECG Data Attestation: I personally reviewed and interpreted this ECG as follows: Indication: SOB/dyspnea Rate (beats per minute): 88 Rhythm: sinus rhythm Findings: + other (normal axis, poor baseline); no PVC Blood Pressure Blood Pressure Findings: Elevated blood pressure Blood Pressure Disposition: further management by hospitalist AYLIN Narrative Patient is an 83-year-old female who presents the ER with worsening confusion which has been progressing over the past 3 days. Patient had recent UA done as an outpatient for the confusion which she was treated with antibiotics. Eventually resulted that she had an ESBL was not treated appropriately. The past 4 days patient has been receiving IM Invanz. Patient does live at home. Over the past 72 hours patient has been having worsening shortness of breath. She normally wears about 2 L nasal cannula. She was hypoxic at 85 to 87% on her 2 L. Patient's oxygen was increased to 5 L while in the ER. Patient was monitored closely. IV was established blood work was obtained. Labs show a mil d anemia 10.7. INR is unremarkable. BMP with creatinine 1.53. LFTs bilirubin was unremarkable. UA was contaminated with epithelial cells and patient are received Invanz we will hold antibiotics at this time for this. ABG done by the hospital showed a pH of 7.28. CO2 was elevated at 80. Patient will be monitored closely on the ER was admitted to the hospitalist for further work-up. Impression & Plan CHF (congestive heart failure), Hypoxia, Respiratory failure Critical Care Time Critical Care Time: Yes Total Critical Care Time: 30 I have personally spent 30 minutes of critical care time in the direct management of this patient. This includes bedside care, interpretation of diagnostic studies, and testing, discussion with consultants, patient, and family members, and other required patient management activities. This 30 minutes is in excess of all separately billable procedures. Discharge Plan Visit Data Chief Complaint: Shortness of Breath/Dyspnea Stated Complaint: WEAKNESS, SOB ED Provider: Vipul Hay Discharge Problem: CHF (congestive heart failure), Hypoxia, Respiratory failure Patient Disposition: Being Evaluated by Hospitalist Forms Stand Alone Forms: My [facility] Prescriptions Prescriptions: No Action citalopram 10 mg Tablet 10 mg PO DAILY RF: 0 hydralazine 25 mg Tablet 25 mg PO TID RF: 0 cranberry conc-ascorbic acid 140-100 mg Capsule 1 cap PO DAILY RF: 0 allopurinol 100 mg Tablet 100 mg PO BID RF: 0 pantoprazole 40 mg Tablet,Delayed Release (Dr/Ec) 40 mg PO DAILY RF: 0 metoprolol tartrate 50 mg Tablet 50 mg PO BID RF: 0 docusate sodium [DOK] 100 mg Capsule 100 mg PO BID RF: 0 furosemide [Lasix] 20 mg Tablet 20 mg PO Q2D RF: 0 glipizide 5 mg Tablet 2.5 mg PO BIDM RF: 0 acetaminophen [Tylenol] 325 mg Capsule 650 mg PO Q8H RF: 0 magnesium oxide 400 mg magnesium Tablet 400 mg PO DAILY RF: 0 atorvastatin 40 mg Tablet 40 mg PO DAILY RF: 0 cyanocobalamin (vitamin B-12) [Vitamin B-12] 1,000 mcg Tablet 1,000 mcg PO DAILY RF: 0 aspirin 81 mg Tablet,Chewable 81 mg PO DAILY RF: 0 polyethylene glycol 3350 17 gram/dose Powder 17 g PO DAILY RF: 0 diclofenac sodium [Voltaren] 1 % Gel 2 g TOPICAL QID RF: 0 Women's One Daily 18 mg iron-400 mcg-500 mg Ca Tablet 1 tab PO DAILY RF: 0 Caltrate 600-D Plus Minerals 600 mg calcium- 800 unit-40 mg Tablet,Chewable 1 tab PO BID RF: 0 Referrals Referrals: Jonathan Marshall V., [Primary Care Provider] - The scribe's documentation has been prepared under my direction and personally reviewed by me in its entirety. I confirm that the note above accurately reflects all work, treatment, procedures, and medical decision making performed by me.
[2019-04-13] MEDS ORDERED: GLUCAGON FOR INJ 1 MG VIAL SQ PRN (02:55)
[2019-04-13] MEDS ORDERED: XOPENEX/ATROVENT 1.25mg/0.5MG NEB COMBO NEB SCH (02:55)
[2019-04-13] MEDS ORDERED: DEXTROSE 50% 50 ML SYRINGE IV PRN (02:55)
[2019-04-13] MEDS ORDERED: CARBOHYDRATES FOR HYPOGLYCEMIA PO PRN (02:55)
[2019-04-13] MEDS ORDERED: NITROGLYCERIN SL 0.4 MG/TAB TAB SL PRN (02:55)
[2019-04-13] MEDS ORDERED: GLUCOSE 10 TABS/TUBE PO PRN (02:55)
[2019-04-13] MEDS ORDERED: PROMETHAZINE HCL 12.5 MG in SODIUM CHLORIDE 0.9% 50 ML IV PRN (02:55)
[2019-04-13] MEDS ORDERED: GLUCOSE 40% GEL 15 GM TUBE PO PRN (02:55)
[2019-04-13] MEDS ORDERED: ACETAMINOPHEN 325 MG TAB PO PRN (02:55)
[2019-04-13 03:29] LABS: Basophils # (auto) 0.02 K/uL (0-0.2); Basophils % (auto) 0.2 %; Eosinophils % (auto) 3.4 %; Hematocrit (blood only) 29.4 % (37-47); Hemoglobin 9.8 g/dL (12.0-16.0); Immature Granulocytes # (auto) 0.02 K/uL (0.00-0.02); Immature Granulocytes % (auto) 0.2 %; Lymphocytes # (auto) 1.68 K/uL (1.2-3.4); Lymphocytes % (auto) 18.8 %; Mean Corpuscular Hgb Conc 33.3 g/dL (32-36); Mean Corpuscular Volume 114.4 fL (80-100); Mean Platelet Volume 11.6 fL (7.4-10.4); Monocytes # (auto) 0.82 K/uL (0.11-0.59); Monocytes % (auto) 9.2 %; Neutrophils # (auto) 6.11 K/uL (1.4-6.5); Neutrophils % (auto) 68.2 %; Platelet Count 192 K/uL (130-400); RDW Coefficient of Variation 16.1 % (11.5-14.5); RDW Standard Deviation 66.7 fL (36.4-46.3); Red Blood Count 2.57 M/uL (4.2-5.4); White Blood Count 8.95 K/uL (4.8-10.8)
[2019-04-13 03:39] LABS: Base Excess ABG 9.6 mEq/L (-9-1.8); HCO3 ABG 37 mmol/L (19-24); Oxygen Saturation ABG 94.1 % (90-95); PCO2 ABG 64 mmHg (35-46); PO2 ABG 76 mm/Hg (80-95); pH ABG 7.38 (7.35-7.45)
[2019-04-13 03:41] LABS: Allen Test Pos (Pos)
[2019-04-13 03:48] LABS: BUN Creatinine Ratio 34.5 (10-20); Blood Urea Nitrogen 46 mg/dl (7-18); Calcium 10.2 mg/dl (8.5-10.1); Carbon Dioxide 36 mmol/L (21-32); Chloride 104 mmol/L (98-107); Creatinine Clr Calc Pharmacy 28.5 ml/min; Est GFR (African American) 42.4; Est GFR (Non-African American) 36.6; Glucose 69 mg/dl (70-99); Potassium 4.1 mmol/L (3.5-5.1); Sodium 144 mmol/L (136-145)
[2019-04-13] MEDS: LEVALBUTEROL 1.25MG/0.5ML NEB INH SCH ×4 (03:48→19:09)
[2019-04-13] MEDS: IPRATROPIUM BROMIDE NEB SOLN 0.02% 2.5 ML VIAL INH SCH ×4 (03:48→19:10)
[2019-04-13 03:53] LABS: Troponin I < 0.015 ng/ml (0-0.045)
[2019-04-13] MEDS: INSULIN ASPART 100 UNITS/ML 3 ML PEN SC SCH ×5 (04:20→20:38)
[2019-04-13 04:29] LABS: Basophilic Stippling 1+; Macrocytosis Present; Stomatocytes 1+
--- NOTE | 2019-04-13 06:12 | Hospitalist Progress Note ---
Date of Service April 13, 2019 Subjective Made aware by RN of patient refusal to wear BiPAP. Patient disoriented. Patient's daughter, Ms.Terri Rodriguez, updated over the phone. She agrees that forcing patient to wear BiPAP would not be feasible and endotracheal intubation for progressive respiratory compromise due to patient's BiPAP noncompliance would not be in her mother's best interests. CODE STATUS de-escalated to DNR/DNI as per daughter. Continue with current medical management however. Results & Data Vital Signs (Past 12 Hours) Vital Signs Temp Pulse Pulse Resp BP Pulse Ox 04/13/19 05:16 90 04/13/19 03:48 90 18 92 04/13/19 03:10 92 H 04/13/19 02:52 89 23 94 04/13/19 02:01 87 16 93 04/13/19 02:00 97 H 38 H 119/69 93 04/13/19 01:30 86 29 H 124/47 L 91 04/13/19 01:15 88 24 92 04/13/19 01:01 90 27 H 93 04/13/19 01:00 86 23 141/60 H 93 04/13/19 00:31 86 24 93 04/13/19 00:30 91 H 27 H 132/59 L 93 04/13/19 00:01 86 26 H 94 04/13/19 00:00 89 30 H 138/56 L 94 04/12/19 23:31 84 31 H 96 04/12/19 23:30 90 28 H 135/54 L 96 04/12/19 23:19 85 24 95 04/12/19 23:01 88 32 H 94 04/12/19 23:00 85 30 H 129/53 L 94 04/12/19 22:41 87 35 H 95 04/12/19 22:40 85 32 H 142/58 H 94 04/12/19 22:30 87 26 H 94 04/12/19 22:00 90 34 H 95 04/12/19 21:32 90 26 H 96 04/12/19 21:24 5 L 04/12/19 21:13 37.0 C 94 H 24 141/51 H 92 04/12/19 21:12 87 34 H 141/51 H 96
[2019-04-13] MEDS: HEPARIN SOD 5,000 UNIT/0.5 ML VIAL SQ SCH ×3 (06:18→21:11)
[2019-04-13] MEDS ORDERED: FUROSEMIDE 60 MG in SYRINGE 0 ML IV ONE ×2 (06:35→08:00)
[2019-04-13] MEDS: POLYETHYLENE (MIRALAX) 17 GM PACK PO SCH (08:35)
[2019-04-13] MEDS: CEROVITE ADV FORMULA TAB PO SCH (08:36)
[2019-04-13] MEDS: DOCUSATE SODIUM 100 MG CAP PO SCH ×2 (08:36→20:28)
[2019-04-13] MEDS: ALLOPURINOL 100 MG TAB PO SCH ×2 (08:36→20:28)
[2019-04-13] MEDS: PANTOprazole 40 MG TAB PO SCH (08:36)
[2019-04-13] MEDS: ASPIRIN 81 MG ECTAB PO SCH (08:36)
[2019-04-13] MEDS: CITALOPRAM 20 MG TAB PO SCH (08:36)
[2019-04-13] MEDS: METOPROLOL TARTRATE 50 MG TAB PO SCH ×2 (08:37→20:28)
[2019-04-13] MEDS: ATORVASTATIN 40 MG TAB PO SCH (08:37)
[2019-04-13] MEDS ORDERED: LABETALOL HCL IV 5 MG/ML 20ML IV PRN (10:00)
--- NOTE | 2019-04-13 10:50 | Cardiology Consultation ---
Date of Consultation April 13, 2019 Assessment & Plan (1) UTI (urinary tract infection): (2) Encephalopathy: (3) Closed femur fracture: (4) Closed fracture of body of lumbar vertebra: (5) Compression fracture of thoracic vertebra: (6) Chronic kidney disease (CKD), stage III (moderate): (7) Hypoxia: (8) RHF (right heart failure): Will obtain an echocardiogram to evaluate for pulmonary hypertension and LV function. At present the patient looks comfortable. She is somnolent but arousable. History of Present Illness Attending Physician: Ash Weiner MD History of Present Illness This is an 83-year-old female with multiple medical problems who is followed by [facility] at home. Her last hospital admission here was in November after a fall when she had several impression fractures of her back. She is also had several hospital admissions to [facility] with a hip fracture and a fracture status post prosthetic hip. She was admitted with respiratory failure however, she appears comfortable to me. She has a history of diabetes and recurrent UTI infections. She is somnolent and not able to provide any history. Allergies Allergy/AdvReac Type Severity Reaction Status Date / Time codeine AdvReac Intermediate Neuro Verified 04/12/19 22:45 Changes haloperidol [From Haldol] AdvReac Intermediate confusion Verified 04/13/19 09:15 tramadol AdvReac Intermediate confusion Verified 04/13/19 09:15 morphine AdvReac confusion Verified 04/13/19 09:15 Home Medications Home Medications Medication Instructions Recorded Confirmed Type acetaminophen [Tylenol] 650 mg PO Q8H 11/12/18 04/12/19 History allopurinol 100 mg PO BID 11/12/18 04/12/19 History citalopram 10 mg PO DAILY 11/12/18 04/12/19 History cranberry conc-ascorbic acid 1 cap PO DAILY 11/12/18 04/12/19 History docusate sodium [DOK] 100 mg PO BID 11/12/18 04/12/19 History furosemide [Lasix] 20 mg PO Q2D 11/12/18 04/12/19 History glipizide 2.5 mg PO BIDM 11/12/18 04/12/19 History hydralazine 25 mg PO TID 11/12/18 04/12/19 History magnesium oxide 400 mg PO DAILY 11/12/18 04/12/19 History metoprolol tartrate 50 mg PO BID 11/12/18 04/12/19 History pantoprazole 40 mg PO DAILY 11/12/18 04/12/19 History Qi-W2-mbu-zvtl-jyh-zaas-boron 1 tab PO BID 04/12/19 04/12/19 History [Caltrate 600-D Plus Minerals] aspirin 81 mg PO DAILY 04/12/19 04/12/19 History atorvastatin 40 mg PO DAILY 04/12/19 04/12/19 History cyanocobalamin (vitamin B-12) 1,000 mcg PO DAILY 04/12/19 04/12/19 History [Vitamin B-12] diclofenac sodium [Voltaren] 2 g TOPICAL QID 04/12/19 04/12/19 History dxohmngy-rpsm-BQ-calcium-mins 1 tab PO DAILY 04/12/19 04/12/19 History [Women's One Daily] polyethylene glycol 3350 17 g PO DAILY 04/12/19 04/12/19 History Patient History Medical History Diabetes (Chronic) Hypertension (Chronic) Family History Other Family history non-contributory Social History Preferred Language: Ukrainian Communication Ability: Effective [employer]eral Home General 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 Required: No Beliefs That Will Affect Care: None marital status: Current Living Situation: Spouse Other Information That Helps Us Care for You: No Feels Safe at Home: Yes Safety Concerns: Feels Safe At This Time Smoking Status: Never smoker Second Hand Exposure: No Hx Alcohol Use: No Hx Substance Use: No Review of Systems Review of Systems: Unobtainable due to reduced consciousness Physical Exam Physical Exam: General: no acute distress and stated age Head: normocephalic, no masses, lesions, tenderness or abnormalities Eyes: conjunctiva are pink and non-injected, sclera clear Neck: supple, no adenopathy, no bruits, normal jugular venous pulse, no hepatojugular reflux Chest: normal shape and normal respiratory effort Lungs: clear to auscultation and percussion Cardiac Exam: - regular rate & rhythm, no murmurs gallops or rubs - normal S1, normal S2 Pulses: 2(+) throughout Abdomen: abdomen soft, non-tender, no abnormal masses and no hepatosplenomegaly Musculoskeletal: no gait disturbance, no joint inflammation, no deforming arthritis Extremities: no edema and no cyanosis Neuro: grossly normal exam Results & Data Vital Signs (Past 12 Hours) Vital Signs Temp Pulse Pulse Resp BP BP Pulse Ox 04/13/19 08:00 04/13/19 07:38 36.4 C L 96 H 19 195/75 H 92 04/13/19 07:16 104 H 18 92 04/13/19 06:00 75 L 04/13/19 05:16 90 04/13/19 03:48 90 18 92 04/13/19 03:10 92 H 04/13/19 02:52 89 23 94 04/13/19 02:01 87 16 93 04/13/19 02:00 97 H 38 H 119/69 93 04/13/19 01:30 86 29 H 124/47 L 91 04/13/19 01:15 88 24 92 04/13/19 01:01 90 27 H 93 04/13/19 01:00 86 23 141/60 H 93 04/13/19 00:31 86 24 93 04/13/19 00:30 91 H 27 H 132/59 L 93 04/13/19 00:01 86 26 H 94 04/13/19 00:00 89 30 H 138/56 L 94 04/12/19 23:31 84 31 H 96 04/12/19 23:30 90 28 H 135/54 L 96 04/12/19 23:19 85 24 95 04/12/19 23:01 88 32 H 94 04/12/19 23:00 85 30 H 129/53 L 94 Pulse Ox 04/13/19 08:00 93 04/13/19 07:38 04/13/19 07:16 04/13/19 06:00 04/13/19 05:16 04/13/19 03:48 04/13/19 03:10 04/13/19 02:52 04/13/19 02:01 04/13/19 02:00 04/13/19 01:30 04/13/19 01:15 04/13/19 01:01 04/13/19 01:00 04/13/19 00:31 04/13/19 00:30 04/13/19 00:01 04/13/19 00:00 04/12/19 23:31 04/12/19 23:30 04/12/19 23:19 04/12/19 23:01 04/12/19 23:00 Laboratory Results Laboratory Results - last 24 hr 04/12/19 04/12/19 04/12/19 20:23 20:23 20:23 WBC 8.90 RBC 2.82 L Hgb 10.7 L Hct 32.1 L MCV 113.8 H MCH 37.9 H MCHC 33.3 RDW Std Deviation 67.3 H RDW Coeff of Devin 16.1 H Plt Count 231 MPV 12.3 H Immature Gran % (Auto) 0.3 Neut % (Auto) 68.1 Lymph % (Auto) 20.0 Graham % (Auto) 8.5 Eos % (Auto) 2.9 Baso % (Auto) 0.2 Immature Gran # (Auto) 0.03 H Neut # (Auto) 6.05 Lymph # (Auto) 1.78 Graham # (Auto) 0.76 H Eos # (Auto) 0.26 Baso # (Auto) 0.02 Basophilic Stippling 1+ Anisocytosis Present Macrocytosis Stomatocytes PT 10.1 INR 1.0 APTT 27.4 PTT Ratio 1.0 ABG pH ABG pCO2 ABG pO2 ABG HCO3 ABG O2 Saturation ABG Base Excess Henry Test Barometric Pressure Oxygen Given Sodium 143 Potassium 4.6 Chloride 104 Carbon Dioxide 37 H Anion Gap 2.0 L BUN 45 H Creatinine 1.53 H Est Cr Clr Drug Dosing 24.8 Est GFR ( Amer) 35.8 Est GFR (Non-Af Amer) 30.9 BUN/Creatinine Ratio 29.7 H Glucose 142 H POC Glucose Estimat Average Glucose Hemoglobin A1c Calcium 10.5 H Magnesium 2.5 H Total Bilirubin 0.3 AST 21 ALT 31 Alkaline Phosphatase 124 H Troponin I < 0.015 Total Protein 7.1 Albumin 3.6 Globulin 3.5 Albumin/Globulin Ratio 1.0 Urine Color Urine Appearance Urine pH Ur Specific [place] Urine Protein Urine Glucose (UA) Urine Ketones Urine Blood Urine Nitrite Urine Bilirubin Urine Urobilinogen Ur Leukocyte Esterase Urine WBC (Auto) Urine RBC (Auto) U Hyaline Cast (Auto) U Epithel Cells (Auto) Urine Bacteria (Auto) Urine Yeast 04/12/19 04/12/19 04/12/19 20:23 23:43 Unknown WBC RBC Hgb Hct MCV MCH MCHC RDW Std Deviation RDW Coeff of Devin Plt Count MPV Immature Gran % (Auto) Neut % (Auto) Lymph % (Auto) Graham % (Auto) Eos % (Auto) Baso % (Auto) Immature Gran # (Auto) Neut # (Auto) Lymph # (Auto) Graham # (Auto) Eos # (Auto) Baso # (Auto) Basophilic Stippling Anisocytosis Macrocytosis Stomatocytes PT INR APTT PTT Ratio ABG pH 7.28 L ABG pCO2 81 H ABG pO2 105 H ABG HCO3 37 H ABG O2 Saturation 97.0 H ABG Base Excess 7.8 H Henry Test Pos Barometric Pressure 732.4 Oxygen Given 5L Sodium Potassium Chloride Carbon Dioxide Anion Gap BUN Creatinine Est Cr Clr Drug Dosing Est GFR ( Amer) Est GFR (Non-Af Amer) BUN/Creatinine Ratio Glucose POC Glucose Estimat Average Glucose Pending Hemoglobin A1c Pending Calcium Magnesium Total Bilirubin AST ALT Alkaline Phosphatase Troponin I Total Protein Albumin Globulin Albumin/Globulin Ratio Urine Color Yellow Urine Appearance Cloudy A Urine pH 5.0 Ur Specific [place] 1.023 Urine Protein 1+ H Urine Glucose (UA) Negative Urine Ketones Negative Urine Blood Trace H Urine Nitrite Negative Urine Bilirubin Negative Urine Urobilinogen Negative Ur Leukocyte Esterase 2+ H Urine WBC (Auto) >30 H Urine RBC (Auto) 5-10 H U Hyaline Cast (Auto) 0 U Epithel Cells (Auto) 20-30 H Urine Bacteria (Auto) Negative Urine Yeast Budding w/ Hyphae A 04/13/19 04/13/19 04/13/19 03:16 03:16 03:16 WBC 8.95 RBC 2.57 L Hgb 9.8 L Hct 29.4 L MCV 114.4 H MCH 38.1 H MCHC 33.3 RDW Std Deviation 66.7 H RDW Coeff of Devin 16.1 H Plt Count 192 MPV 11.6 H Immature Gran % (Auto) 0.2 Neut % (Auto) 68.2 Lymph % (Auto) 18.8 Graham % (Auto) 9.2 Eos % (Auto) 3.4 Baso % (Auto) 0.2 Immature Gran # (Auto) 0.02 Neut # (Auto) 6.11 Lymph # (Auto) 1.68 Graham # (Auto) 0.82 H Eos # (Auto) 0.30 Baso # (Auto) 0.02 Basophilic Stippling 1+ Anisocytosis Macrocytosis Present Stomatocytes 1+ PT INR APTT PTT Ratio ABG pH 7.38 ABG pCO2 64 H ABG pO2 76 L ABG HCO3 37 H ABG O2 Saturation 94.1 ABG Base Excess 9.6 H Henry Test Pos Barometric Pressure 731.4 Oxygen Given 30% Sodium 144 Potassium 4.1 Chloride 104 Carbon Dioxide 36 H Anion Gap 4.0 BUN 46 H Creatinine 1.33 H Est Cr Clr Drug Dosing 28.5 Est GFR ( Amer) 42.4 Est GFR (Non-Af Amer) 36.6 BUN/Creatinine Ratio 34.5 H Glucose 69 L POC Glucose Estimat Average Glucose Hemoglobin A1c Calcium 10.2 H Magnesium Total Bilirubin AST ALT Alkaline Phosphatase Troponin I < 0.015 Total Protein Albumin Globulin Albumin/Globulin Ratio Urine Color Urine Appearance Urine pH Ur Specific [place] Urine Protein Urine Glucose (UA) Urine Ketones Urine Blood Urine Nitrite Urine Bilirubin Urine Urobilinogen Ur Leukocyte Esterase Urine WBC (Auto) Urine RBC (Auto) U Hyaline Cast (Auto) U Epithel Cells (Auto) Urine Bacteria (Auto) Urine Yeast 04/13/19 04/13/19 04/13/19 04:18 04:51 08:32 WBC RBC Hgb Hct MCV MCH MCHC RDW Std Deviation RDW Coeff of Devin Plt Count MPV Immature Gran % (Auto) Neut % (Auto) Lymph % (Auto) Graham % (Auto) Eos % (Auto) Baso % (Auto) Immature Gran # (Auto) Neut # (Auto) Lymph # (Auto) Graham # (Auto) Eos # (Auto) Baso # (Auto) Basophilic Stippling Anisocytosis Macrocytosis Stomatocytes PT INR APTT PTT Ratio ABG pH ABG pCO2 ABG pO2 ABG HCO3 ABG O2 Saturation ABG Base Excess Henry Test Barometric Pressure Oxygen Given Sodium Potassium Chloride Carbon Dioxide Anion Gap BUN Creatinine Est Cr Clr Drug Dosing Est GFR ( Amer) Est GFR (Non-Af Amer) BUN/Creatinine Ratio Glucose POC Glucose 69 L* 75 82 Estimat Average Glucose Hemoglobin A1c Calcium Magnesium Total Bilirubin AST ALT Alkaline Phosphatase Troponin I Total Protein Albumin Globulin Albumin/Globulin Ratio Urine Color Urine Appearance Urine pH Ur Specific [place] Urine Protein Urine Glucose (UA) Urine Ketones Urine Blood Urine Nitrite Urine Bilirubin Urine Urobilinogen Ur Leukocyte Esterase Urine WBC (Auto) Urine RBC (Auto) U Hyaline Cast (Auto) U Epithel Cells (Auto) Urine Bacteria (Auto) Urine Yeast Medications Administered Current Inpatient Medications Acetaminophen (Tylenol) 650 mg PO Q4H PRN PRN Reason: Pain or Fever Stop: 05/13/19 02:54 Allopurinol (Zyloprim) 100 mg PO BID [facility] Stop: 05/13/19 08:59 Last Admin: 04/13/19 08:36 Dose: 100 mg Documented by: Aspirin (Ecotrin Ectab) 81 mg PO DAILY [facility] Stop: 05/13/19 08:59 Last Admin: 04/13/19 08:36 Dose: 81 mg Documented by: Atorvastatin Calcium (Lipitor) 40 mg PO DAILY [facility] Stop: 05/13/19 08:59 Last Admin: 04/13/19 08:37 Dose: 40 mg Documented by: Citalopram Hydrobromide (Celexa) 10 mg PO DAILY [facility] Stop: 05/13/19 08:59 Last Admin: 04/13/19 08:36 Dose: 10 mg Documented by: Dextrose (Dextrose 50%) 25 - 50 ml IV UD PRN; Protocol PRN Reason: Hypoglycemia Protocol Stop: 05/13/19 02:54 Docusate Sodium (Colace) 100 mg PO BID [facility] Stop: 05/13/19 08:59 Last Admin: 04/13/19 08:36 Dose: 100 mg Documented by: Ertapenem (Consult) 1 ea N/A UD PRN PRN Reason: Consult Stop: 05/13/19 10:51 Glucagon (Glucagen) 1 mg SQ UD PRN; Protocol PRN Reason: Hypoglycemia Protocol Stop: 05/13/19 02:54 Glucose (Glucose 40%) 15 - 30 gm PO UD PRN; Protocol PRN Reason: Hypoglycemia Protocol Stop: 05/13/19 02:54 Glucose (Dex4 Glucose) 4 - 8 tabs PO UD PRN; Protocol PRN Reason: Hypoglycemia Protocol Stop: 05/13/19 02:54 Heparin Sodium (Porcine) (Heparin Sodium (Porcine)) 5,000 units SQ Q8 [facility] Stop: 05/13/19 05:59 Last Admin: 04/13/19 06:18 Dose: Not Given Documented by: Hydralazine HCl (Apresoline) 25 mg PO TID [facility] Stop: 05/13/19 08:59 Last Admin: 04/13/19 08:37 Dose: 25 mg Documented by: Promethazine HCl 12.5 mg/ (Sodium Chloride) 50.5 mls @ 202 mls/hr IV Q6H PRN PRN Reason: Nausea And Vomiting Stop: 05/13/19 02:54 Ertapenem 1,000 mg/ Sodium (Chloride) 60 mls @ 100 mls/hr IV Q24H [facility] Stop: 04/24/19 01:59 Insulin Aspart (Novolog Flexpen) 0 units SC ACHS [facility] Stop: 05/13/19 02:54 Last Admin: 04/13/19 08:34 Dose: Not Given Documented by: Ipratropium [place] (Atrovent 0.02% 0.5mg/2.5ml) 0.5 mg INH Q6R [facility] Stop: 05/13/19 02:54 Last Admin: 04/13/19 07:16 Dose: 0.5 mg Documented by: Labetalol HCl (Normodyne) 10 mg IV Q6H PRN PRN Reason: Hypertension Stop: 05/13/19 09:59 Levalbuterol HCl (Xopenex 1.25mg/0.5ml Neb) 1.25 mg INH Q6R [facility] Stop: 05/13/19 02:54 Last Admin: 04/13/19 07:16 Dose: 1.25 mg Documented by: Metoprolol Tartrate (Lopressor) 50 mg PO BID [facility] Stop: 05/13/19 08:59 Last Admin: 04/13/19 08:37 Dose: 50 mg Documented by: Miscellaneous (Carbohydrates For Hypoglycemia) 15 - 30 gm PO UD PRN PRN Reason: Hypoglycemia Treatment Stop: 05/13/19 02:54 Multivitamins/Minerals (Multivitamin W/ Minerals Tab) 1 tab PO DAILY [facility] Stop: 05/13/19 08:59 Last Admin: 04/13/19 08:36 Dose: 1 tab Documented by: Nitroglycerin (Nitrostat) 0.4 mg SL UD PRN PRN Reason: Chest Pain Stop: 05/13/19 02:54 Pantoprazole Sodium (Protonix) 40 mg PO DAILY [facility] Stop: 05/13/19 08:59 Last Admin: 04/13/19 08:36 Dose: 40 mg Documented by: Polyethylene Glycol (Miralax Powder Packet) 17 gm PO DAILY [facility] Stop: 05/13/19 08:59 Last Admin: 04/13/19 08:35 Dose: 17 gm Documented by: (1) Closed femur fracture Encounter type: initial encounter Femur location: distal epiphysis Fracture alignment: displaced Laterality: left Qualified Code(s): S72.442A - Displaced fracture of lower epiphysis (separation) of left femur, initial encounter for closed fracture (2) Compression fracture of thoracic vertebra Encounter type: initial encounter Fracture type: closed Qualified Code(s): S22.000A - Wedge compression fracture of unspecified thoracic vertebra, initial encounter for closed fracture
[2019-04-13] MEDS ORDERED: ERTAPENEM CONSULT ACTIVE PRN (10:52)
--- NOTE | 2019-04-13 13:17 | Hospitalist Progress Note ---
Date of Service April 13, 2019 Assessment & Plan (1) Encephalopathy: Metabolic Encephalopathy: Likely Multifactorial Acute on chronic hypoxemic, hypercapnic respiratory failure Acute respiratory acidosis Pulmonary HTN Could have underlying ELIZABETH Head CT:Chronic small vessel ischemic change. No acute intracranial abnormality. CXR:Worsening lung aeration, which is very low on the current exam. Increasing congestive change and volume overload suspected. Less likely differential considerations include bronchitis or reactive airways disease. Continue IV antibiotics, nebs Pulmonary consulted BiPAP As tolerated Continue supplemental oxygen Decompensated right-sided heart failure Pulmonary hypertension on recent ECHO at [facility] CXR as above Was on lasix 20 mg every 48 hours Received IV diuretics Monitor I/Os, daily weight ECHO:EF:65-70%, Small LV, Mild TR Cardiology Consulted Partially treated complicated UTI ESBL E. coli on outpatient urine culture Urine Cx from 04/12/19:pending Continue InVanz Day #1 Hypertension stable Continue current medications H/O CAD Continue aspirin, Lipitor, Metoprolol CKD IV Cr at baseline Monitor renal function Avoid Nephrotoxic agents as able Anemia of Chronic disease Hb at baseline monitor DM II: Last A1C: 6.0 in Nov 2018 Update A1C Hold PO meds Continue Insulin therapy while hospitalized DVT Px: Heparin SQ Code Status DNI/DNR Disposition: To be determined Family: POA Ms. Mare Rodriguez. (contact #[phone]) Subjective Patient is seen and examined at bedside Complains of intermittent leg pain Oriented to person only this morning Denies any chest pain, shortness of breath, dizziness No family at bedside Offers no other complaints Review of Systems Review of Systems: All systems reviewed & are unremarkable except as noted in HPI & below Physical Exam Physical Exam: Physical Exam: Vitals signs as noted above General Appearance:Elderly, no apparent distress Head: normocephalic, Atraumatic Eyes: normal inspection, EOMI Neck: supple, Trachea midline Respiratory/Chest: Normal breath sounds, CTA Cardiovascular: S1, S2, No murmur Abdomen/GI:Soft, Non tender, Bowel sounds present Extremities/Musculoskelatal:normal inspection, 1-2 + B/L pedal edema Neurologic/Psych:grossly no focal neurological deficits Skin: normal color, warm Results & Data Vital Signs (Past 12 Hours) Vital Signs Temp Pulse Pulse Resp BP BP Pulse Ox 04/13/19 10:51 36.7 C 70 19 104/56 L 95 04/13/19 08:00 04/13/19 07:38 36.4 C L 96 H 19 195/75 H 92 04/13/19 07:16 104 H 18 92 04/13/19 06:00 75 L 04/13/19 05:16 90 04/13/19 03:48 90 18 92 04/13/19 03:10 92 H 04/13/19 02:52 89 23 94 04/13/19 02:01 87 16 93 04/13/19 02:00 97 H 38 H 119/69 93 04/13/19 01:30 86 29 H 124/47 L 91 04/13/19 01:15 88 24 92 Pulse Ox 04/13/19 10:51 04/13/19 08:00 93 04/13/19 07:38 04/13/19 07:16 04/13/19 06:00 04/13/19 05:16 04/13/19 03:48 04/13/19 03:10 04/13/19 02:52 04/13/19 02:01 04/13/19 02:00 04/13/19 01:30 04/13/19 01:15 Laboratory Results Short CBC 04/12/19 04/13/19 Range/Units 20:23 03:16 WBC 8.90 8.95 (4.8-10.8) K/uL Hgb 10.7 L 9.8 L (12.0-16.0) g/dL Hct 32.1 L 29.4 L (37-47) % Plt Count 231 192 (130-400) K/uL BMP 04/12/19 04/13/19 20:23 03:16 Sodium 143 144 Potassium 4.6 4.1 Chloride 104 104 Carbon Dioxide 37 H 36 H BUN 45 H 46 H Creatinine 1.53 H 1.33 H Glucose 142 H 69 L Calcium 10.5 H 10.2 H Cardiac Enzymes 04/12/19 04/13/19 Range/Units 20:23 03:16 Troponin I < 0.015 < 0.015 (0-0.045) ng/ml Liver Function 04/12/19 Range/Units 20:23 Total Bilirubin 0.3 (0.2-1) mg/dl AST 21 (15-37) U/L ALT 31 (12-78) U/L Alkaline Phosphatase 124 H (45-117) U/L Albumin 3.6 (3.4-5.0) gm/dl Urine 04/12/19 Range/Units Unknown Urine Color Yellow Urine Appearance Cloudy A (Clear) Urine pH 5.0 (4.5-7.5) Ur Specific [place] 1.023 (1.000-1.030) Urine Protein 1+ H (Negative) Urine Glucose (UA) Negative (Negative)
--- NOTE | 2019-04-13 20:08 | Consultation Report ---
DATE OF CONSULTATION: 04/13/2019 PULMONARY MEDICINE CONSULT REASON FOR CONSULTATION: Acute on chronic hypoxemic and hypercarbic respiratory failure. 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 The patient has a history of ischemic cardiac disease, chronic renal insufficiency, anemia secondary to her renal disease, diabetes mellitus with Charcot joints and a previous history of subdural hematoma. The patient has been on chronic O2 for chronic respiratory failure and documented severe pulmonary hypertension by TTE in November 2018, hypertension as well and previous UTI secondary to Escherichia coli. The patient was recently hospitalized in [place] at [facility] for bilateral femoral fracture secondary to mechanical fall with postoperative complications of hypotension, respiratory failure. TTE during that hospital stay showed LVEF of 70%, but with a hyperdynamic left ventricle and mild cavity obliteration as well as a peak gradient of 55 mmHg, right ventricular systolic function was qualitatively normal but PA pressures were estimated at greater than 65 mmHg. The patient has been on oxygen since discharge to [facility] for rehabilitation. Two weeks ago, apparently patient became progressively more confused, was placed on oral antibiotics for UTI secondary to E. coli and switch to Invanz a few days ago, but the confusion worsened, her oxygen was titrated and she fell again at home and was noted to be less responsive. She was brought to our ER and evaluated by Dr. Vipul Hay. Normally the patient is on oxygen at 2 liters, but has not been on BiPAP or evaluated for sleep apnea according to the notation on the chart. [facility] and I was asked to see patient in consultation. ABGs revealed a pH 7.28, pCO2 of 81, pO2 105 on 5 liters. The patient was then placed on BiPAP. The patient was made a level 5 DNR with intubation and mechanical ventilator assistance not felt to be a nonviable option. In reviewing the discharge summary from November of 2018 admission following a fall, CAT of the abdomen suggested bibasilar atelectasis, L5 compression fracture. CT of the chest at that time continued to show bibasilar atelectasis with a hiatal hernia. Multiple thoracic and lumbosacral compression fractures were noted. Dr. Brasher saw the patient in consultation at that time who then referred the patient to [facility] for further evaluation. For details of past medical history, medications, family and social history, I refer you to current and past record. PHYSICAL EXAMINATION: GENERAL: Reveals a friendly, but confused, white female in no obvious distress at rest but her nasal cannula is not in a proper position. VITAL SIGNS: Her blood pressure 195/75, pulse 96 and regular, respiratory rate 19, temperature 36.4, O2 sat 93% on 5 liters when wearing her oxygen correctly. SKIN: Without lesion. HEENT: Atraumatic, normocephalic, PERRLA, EOMI. Conjunctivae pale. Sclerae nonicteric. Fundi poorly visualized. NECK: Neck veins are not distended at 45 degrees. LUNGS: Marked decreased breath sounds at the bases with rales. CARDIAC: Sinus tachycardia. No discernible S3 but loud P2 audible. ABDOMEN: Soft, protuberant. No evidence of hepatosplenomegaly. EXTREMITIES: Trace to +1 pitting edema. No clubbing. Peripheral cyanosis. NEUROLOGIC: Intact. No lateralizing signs. Oriented x2. LABORATORY DATA: EKG shows sinus tachycardia without acute changes. Head CT done in the ER shows chronic small vessel changes, no acute intracranial abnormality. Chest x-ray shows worsening aeration with low lung volumes. Cardiac silhouette obscured, bronchial wall cuffing noted and increased pulmonary vasculature. Urine culture pending. H&H 9.8 and 29.4, white count normal. This morning ABG 7.38, pCO2 64, pO2 76 on 30% FIO2. Glucose levels 82 this morning with 69 on admission, BUN 46, creatinine 1.3. OVERALL ASSESSMENT: An 83-year-old with complex medical history and chronic renal insufficiency, diabetic neuropathy and nephropathy, history of congestive heart failure, ischemic and hypertensive cardiovascular disease admitted encephalopathic presenting with acute on chronic hypoxic and hypercapnic respiratory failure. I believe patient should be kept on noninvasive positive pressure ventilation either in the form of BiPAP or a Trilogy unit as she clearly has shown signs of decompensation with acute respiratory acidosis superimposed on chronic respiratory acidosis, but now seems well compensated and more oriented according to nursing staff. Chest x-ray shows chronic hypoventilation changes along with congestive changes as well but unfortunately the patient's workup is somewhat limited. Would maintain noninvasive positive pressure ventilation at night and p.r.n. during the day with adequate O2 supplementation. We will follow along with you. BIANKAD
[2019-04-14] MEDS: LEVALBUTEROL 1.25MG/0.5ML NEB INH SCH ×4 (01:49→19:27)
[2019-04-14] MEDS: IPRATROPIUM BROMIDE NEB SOLN 0.02% 2.5 ML VIAL INH SCH ×4 (01:49→19:27)
[2019-04-14] MEDS: ERTAPENEM SODIUM 1,000 MG in SODIUM CHLORIDE 0.9% 50 ML IV SCH (02:26)
[2019-04-14] MEDS: HEPARIN SOD 5,000 UNIT/0.5 ML VIAL SQ SCH ×3 (05:54→20:35)
[2019-04-14 06:01] LABS: Hematocrit (blood only) 33.3 % (37-47); Hemoglobin 10.3 g/dL (12.0-16.0); Mean Corpuscular Hgb Conc 30.9 g/dL (32-36); Mean Corpuscular Volume 112.5 fL (80-100); Platelet Count 179 K/uL (130-400); RDW Coefficient of Variation 16.1 % (11.5-14.5); RDW Standard Deviation 65.1 fL (36.4-46.3); Red Blood Count 2.96 M/uL (4.2-5.4); White Blood Count 8.98 K/uL (4.8-10.8)
[2019-04-14 06:41] LABS: BUN Creatinine Ratio 29.6 (10-20); Calcium 9.8 mg/dl (8.5-10.1); Est GFR (African American) 37.3; Est GFR (Non-African American) 32.2; Magnesium 2.3 mg/dl (1.8-2.4); Potassium 4.2 mmol/L (3.5-5.1)
[2019-04-14 06:42] LABS: Estimated Average Glucose 108 mg/dl; Hemoglobin A1C 5.4 % (4.5-5.6)
[2019-04-14] MEDS: INSULIN ASPART 100 UNITS/ML 3 ML PEN SC SCH ×4 (08:26→20:35)
[2019-04-14] MEDS: POLYETHYLENE (MIRALAX) 17 GM PACK PO SCH (08:29)
[2019-04-14] MEDS: CITALOPRAM 20 MG TAB PO SCH (08:29)
[2019-04-14] MEDS: ALLOPURINOL 100 MG TAB PO SCH ×2 (08:29→20:39)
[2019-04-14] MEDS: ATORVASTATIN 40 MG TAB PO SCH (08:29)
[2019-04-14] MEDS: CEROVITE ADV FORMULA TAB PO SCH (08:30)
[2019-04-14] MEDS: ASPIRIN 81 MG ECTAB PO SCH (08:30)
[2019-04-14] MEDS: PANTOprazole 40 MG TAB PO SCH (08:30)
[2019-04-14] MEDS: DOCUSATE SODIUM 100 MG CAP PO SCH ×2 (08:30→20:38)
[2019-04-14] MEDS: METOPROLOL TARTRATE 50 MG TAB PO SCH ×2 (08:30→20:38)
[2019-04-14] MEDS ORDERED: ERTAPENEM CONSULT ACTIVE PRN (09:00)
--- NOTE | 2019-04-14 11:41 | Cardiology Progress Note ---
Date of Service April 14, 2019 Assessment & Plan (1) Encephalopathy: (2) RHF (right heart failure): Continue empiric antibiotics. Clinically, do not believe patient is volume overloaded. Continue subcutaneous heparin for DVT prophylaxis. Subjective Chief complaint: Follow-up shortness of breath, Subjective: Patient still relatively somnolent. Denies acute complaint. Telemetry reveals sinus rhythm in the 80 bpm range. Review of Systems Review of Systems: Unobtainable due to reduced consciousness Physical Exam 2 Physical Exam: Temp Pulse Resp BP Pulse Ox 37.0 C 95 H 22 119/70 98 04/14/19 11:22 04/14/19 11:22 04/14/19 11:22 04/14/19 11:22 04/14/19 11:22 Constitutional: WD/WN, vitals as above Respiratory: Auscultation: + diminished lung sounds (Mildly decreased breath sounds at the bases) Cardiovascular: Rate/Rhythm: regular rhythm Heart Sounds: no murmur Vessels: no JVD Chronic venous stasis changes noted to the lower legs Neurologic: Arousable to voice commands, but lethargic Results & Data Vital Signs (Past 12 Hours) Vital Signs Temp Pulse Pulse Resp BP Pulse Ox Pulse Ox 04/14/19 11:22 37.0 C 95 H 22 119/70 98 04/14/19 10:35 89 L 04/14/19 08:00 94 04/14/19 07:58 36.6 C 94 H 19 120/69 100 04/14/19 07:16 83 18 96 04/14/19 03:39 36.9 C 94 H 20 143/67 H 95 04/14/19 01:50 89 18 94 04/14/19 00:13 37.1 C 87 23 131/68 94 04/14/19 00:00 79 92
--- NOTE | 2019-04-14 12:35 | Pulmonology Progress Note ---
Date of Service April 14, 2019 Assessment & Plan (1) Acute on chronic respiratory failure with hypoxia and hypercapnia: The patient should be encouraged to wear the BiPAP. It is reasonable to order this only at nighttime. Would suggest attempting to keep her oxygen saturations between 88 and 92%. In light of the respiratory failure, consideration could be given to a trial of nebulizer treatments 3 times per day. (2) Elevated diaphragm: Subjective The patient is a poor historian. She is also somewhat hard of hearing. She is not complaining of shortness of breath, cough, chest pain, or other complaints. Nursing staff reports she has been refusing to wear BiPAP. Review of Systems Review of Systems: As noted above Physical Exam Physical Exam: The patient is a 83-year-old who was cooperative and alert. She was pleasantly confused. She thought the month was March. She did not know the day of the week. She was uncertain about the year. She did know she was in [facility]. Temperature is 37 degrees. Eye exam showed implants. Nares clear. Mouth exam unremarkable. Palpation of the neck reveals no lymph nodes. Cardiac rate is 95/min. There were frequent extrasystoles. Telemetry suggested these were supraventricular. Blood pressure 119/70. Lung wilde revealed diminished breath sounds bilaterally. This was more pronounced on the left. There were minimal breath sounds in the left lower one half. Dry rales were heard in the right lower lung field. Respiratory rate 22. Oxygen saturation when the patient was talking with me was 83% on nasal cannula. If she would stop talking and keep her mouth closed the saturation would improve up to 90%. Extremities showed scars on both legs. There was skin discoloration in both lower extremities with mild nonpitting edema. Results & Data Vital Signs (Past 12 Hours) Vital Signs Temp Pulse Resp BP Pulse Ox Pulse Ox 04/14/19 11:22 37.0 C 95 H 22 119/70 98 04/14/19 10:35 89 L 04/14/19 08:00 94 04/14/19 07:58 36.6 C 94 H 19 120/69 100 04/14/19 07:16 83 18 96 04/14/19 03:39 36.9 C 94 H 20 143/67 H 95 04/14/19 01:50 89 18 94 Laboratory Results White blood cell count today is 8.98. Hemoglobin 10.3. Platelets 179,000. Most recent blood gas done 04/13/2019 showed pH 7.38 with PCO2 64 and PO2 76. This reflected marked improvement compared with a PCO2 of 81 on April 12. Electrolytes today show sodium 143 potassium 4.2 chloride 101 bicarb 40. BUN was 44 with creatinine 1.48. Diagnostic Findings Chest x-ray done 04/12/2019 shows low lung volumes. There was overall poor aeration. The left hemidiaphragm is markedly elevated. This is chronic. There is perhaps mild elevation of the diaphragm or atelectatic changes at the right lung base.
--- NOTE | 2019-04-14 15:22 | Hospitalist Progress Note ---
Date of Service April 14, 2019 Assessment & Plan (1) Encephalopathy: Metabolic Encephalopathy: Likely Multifactorial Acute on chronic hypoxemic, hypercapnic respiratory failure Acute respiratory acidosis Pulmonary HTN Could have underlying ELIZABETH Head CT:Chronic small vessel ischemic change. No acute intracranial abnormality. CXR:Worsening lung aeration, which is very low on the current exam. Increasing congestive change and volume overload suspected. Less likely differential considerations include bronchitis or reactive airways disease. Continue IV antibiotics, nebs Appreciate Pulmonary Input Plan to place on BiPAP QHS Continue supplemental oxygen to titrate Sats 88-92% Decompensated right-sided heart failure Pulmonary hypertension on recent ECHO at [facility] CXR as above Was on lasix 20 mg every 48 hours Received IV diuretics Monitor I/Os, daily weight ECHO:EF:65-70%, Small LV, Mild TR Euvolemic currently Appreciate Cardiology Input Resume home diuretics Partially treated complicated UTI ESBL E. 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 Mare Rodriguez. (contact #[phone]) Subjective Patient is seen and examined at bedside More alert, awake this morning Shortness of breath slightly improved Complains of bilateral leg pain and chronic arthritic pain Denies any chest pain, dizziness, nausea, abd pain No family at bedside Offers no other complaints Review of Systems Review of Systems: All systems reviewed & are unremarkable except as noted in HPI & below Physical Exam Physical Exam: Physical Exam: Vitals signs as noted above General Appearance:Elderly, no apparent distress Head: normocephalic, Atraumatic Eyes: normal inspection, EOMI Neck: supple, Trachea midline Respiratory/Chest: Decreased breath sounds, CTA Cardiovascular: S1, S2, No murmur Abdomen/GI:Soft, Non tender, Bowel sounds present Extremities/Musculoskelatal:normal inspection, 1-2 + B/L pedal edema Neurologic/Psych:grossly no focal neurological deficits Skin: normal color, warm Results & Data Vital Signs (Past 12 Hours) Vital Signs Temp Pulse Resp BP Pulse Ox Pulse Ox 04/14/19 14:04 94 H 18 95 04/14/19 11:22 37.0 C 95 H 22 119/70 98 04/14/19 10:35 89 L 04/14/19 08:00 94 04/14/19 07:58 36.6 C 94 H 19 120/69 100 04/14/19 07:16 83 18 96 04/14/19 03:39 36.9 C 94 H 20 143/67 H 95 Laboratory Results Short CBC 04/14/19 Range/Units 05:48 WBC 8.98 (4.8-10.8) K/uL Hgb 10.3 L (12.0-16.0) g/dL Hct 33.3 L (37-47) % Plt Count 179 (130-400) K/uL BMP 04/14/19 05:48 Sodium 143 Potassium 4.2 Chloride 101 Carbon Dioxide 40 H BUN 44 H Creatinine 1.48 H Glucose 94 Calcium 9.8
[2019-04-15] MEDS: IPRATROPIUM BROMIDE NEB SOLN 0.02% 2.5 ML VIAL INH SCH ×4 (01:28→19:46)
[2019-04-15] MEDS: LEVALBUTEROL 1.25MG/0.5ML NEB INH SCH ×4 (01:28→19:46)
[2019-04-15] MEDS: ERTAPENEM SODIUM 1,000 MG in SODIUM CHLORIDE 0.9% 50 ML IV SCH (03:54)
[2019-04-15] MEDS: HEPARIN SOD 5,000 UNIT/0.5 ML VIAL SQ SCH ×3 (05:41→20:53)
[2019-04-15 07:06] LABS: Hematocrit (blood only) 30.1 % (37-47); Hemoglobin 10.2 g/dL (12.0-16.0); Mean Corpuscular Hgb Conc 33.9 g/dL (32-36); Mean Corpuscular Volume 111.9 fL (80-100); Mean Platelet Volume 12.5 fL (7.4-10.4); Platelet Count 187 K/uL (130-400); RDW Coefficient of Variation 16.2 % (11.5-14.5); RDW Standard Deviation 64.1 fL (36.4-46.3); Red Blood Count 2.69 M/uL (4.2-5.4); White Blood Count 8.95 K/uL (4.8-10.8)
[2019-04-15 07:18] LABS: BUN Creatinine Ratio 30.5 (10-20); Calcium 9.5 mg/dl (8.5-10.1); Creatinine Clr Calc Pharmacy 26.6 ml/min; Est GFR (Non-African American) 30.2
[2019-04-15] MEDS: ALLOPURINOL 100 MG TAB PO SCH ×2 (08:24→20:57)
[2019-04-15] MEDS: POLYETHYLENE (MIRALAX) 17 GM PACK PO SCH (08:25)
[2019-04-15] MEDS: ATORVASTATIN 40 MG TAB PO SCH (08:25)
[2019-04-15] MEDS: CEROVITE ADV FORMULA TAB PO SCH (08:25)
[2019-04-15] MEDS: METOPROLOL TARTRATE 50 MG TAB PO SCH ×2 (08:25→20:57)
[2019-04-15] MEDS: DOCUSATE SODIUM 100 MG CAP PO SCH ×2 (08:25→20:58)
[2019-04-15] MEDS: CITALOPRAM 20 MG TAB PO SCH (08:25)
[2019-04-15] MEDS: INSULIN ASPART 100 UNITS/ML 3 ML PEN SC SCH ×4 (08:26→20:52)
[2019-04-15] MEDS: FUROSEMIDE 20 MG TAB PO SCH (08:26)
[2019-04-15] MEDS: ASPIRIN 81 MG ECTAB PO SCH (08:26)
[2019-04-15] MEDS: PANTOprazole 40 MG TAB PO SCH (08:29)
--- NOTE | 2019-04-15 11:26 | Pulmonology Progress Note ---
Date of Service April 15, 2019 Assessment & Plan (1) Acute on chronic respiratory failure with hypoxia and hypercapnia: Unfortunately the patient continues to refuse to wear BiPAP for more than a few minutes. Would continue the nebulizer treatments every 6 hours. If her lethargy would worsen would recheck an arterial blood gas. Adjust oxygen to keep saturations between 88 and 92% in light of her hypercarbia. (2) Elevated diaphragm: The cause of the elevated diaphragm mainly on the left is unclear. It does appear to be substantial based upon x-ray and prior CAT scan from 5 months ago. It is unknown if she has diaphragm paralysis or not. In light of her poor clinical status it likely does not make any significant difference if there is complete paralysis or not. Prognosis is very guarded. Subjective The patient is seen for a pulmonary follow-up. She is a poor historian. She is also very hard of hearing. She is restless at the present time sitting in a chair. She is not complaining of shortness of breath but I do not believe she is reliable. She denies any cough. Review of Systems Review of Systems: As noted above Physical Exam Physical Exam: The patient is 83-year-old femur who was very hard of hearing. She was cooperative. She seemed somewhat confused although more awake than yesterday. She was able to tell me that it was March. She does not seem to have an understanding of why she is here and what issues she is having. Eye examination showed bilateral implants. Nasal passages clear. Mouth exam unremarkable. No lymph nodes palpable. Cardiac rate is 87/min. The rhythm was regular. Blood pressure 138/71. Auscultation of the lung wilde revealed severely diminished breath sounds bilaterally. Respiratory rate 18 breaths/min at rest. It was not labored. Saturation 95% on 4 L nasal cannula. Ideally would like to keep her saturation somewhat lower in light of her carbon dioxide elevation. Extremities show scars on both legs. There is skin discoloration of both lower extremities with mild edema. There is ecchymosis noted on both upper extremities. Results & Data Vital Signs (Past 12 Hours) Vital Signs Temp Pulse Pulse Resp BP BP Pulse Ox 04/15/19 07:34 36.9 C 87 18 138/71 95 04/15/19 07:17 87 18 92 04/15/19 03:42 36.9 C 85 21 131/69 96 04/15/19 01:35 88 28 H 96 04/15/19 01:29 85 16 90 04/15/19 00:00 100 H 04/14/19 23:35 37.2 C 82 20 110/66 98 Pulse Ox 04/15/19 07:34 04/15/19 07:17 04/15/19 03:42 04/15/19 01:35 04/15/19 01:29 04/15/19 00:00 97 04/14/19 23:35 Laboratory Results White count today is 8.95. Hemoglobin 10.2. Platelets 187,000. These are not significantly changed from one day earlier. Electrolytes today showed sodium 140 potassium 4.3 chloride 101 bicarb 37. BUN is 48 with a creatinine of 1.56. Blood sugar 104.
--- NOTE | 2019-04-15 16:28 | Hospitalist Progress Note ---
Date of Service April 15, 2019 Assessment & Plan (1) Encephalopathy: Metabolic Encephalopathy:slowly improving Likely Multifactorial Acute on chronic hypoxemic, hypercapnic respiratory failure Acute respiratory acidosis Pulmonary HTN Could have underlying ELIZABETH Head CT:Chronic small vessel ischemic change. No acute intracranial abnormality. CXR:Worsening lung aeration, which is very low on the current exam. Increasing congestive change and volume overload suspected. Less likely differential considerations include bronchitis or reactive airways disease. Completed IV antibiotics Continue nebs Appreciate Pulmonary Input Not compliant with BiPAP use QHS Continue supplemental oxygen to titrate Sats 88-92% Patient's daughter not interested in rehab placement Has [facility] home services per patient's daughter Patient's family understands the prognosis is guarded. Decompensated right-sided heart failure Pulmonary hypertension on recent ECHO at [facility] CXR as above Was on lasix 20 mg every 48 hours Received IV diuretics Monitor I/Os, daily weight ECHO:EF:65-70%, Small LV, Mild TR Euvolemic currently Appreciate Cardiology Input Continue home diuretics Partially treated complicated UTI ESBL E. 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 Mrae Rodriguez. (contact #[phone]) Case management following Subjective Patient is seen and examined at bedside Sitting in chair comfortably this morning More alert awake, intermittently confused as per staff History is not reliable Has chronic arthritic pain Discussed with patient's daughter in detail today Denies any chest pain, dizziness, SOB, nausea, abd pain Not compliant with BiPAP Review of Systems Review of Systems: All systems reviewed & are unremarkable except as noted in HPI & below Physical Exam Physical Exam: Physical Exam: Vitals signs as noted above General Appearance:Elderly, no apparent distress Head: normocephalic, Atraumatic Eyes: normal inspection, EOMI Neck: supple, Trachea midline Respiratory/Chest: Decreased breath sounds, CTA Cardiovascular: S1, S2, No murmur Abdomen/GI:Soft, Non tender, Bowel sounds present Extremities/Musculoskelatal:normal inspection, 1+ B/L pedal edema Neurologic/Psych:grossly no focal neurological deficits Skin: normal color, warm Results & Data Vital Signs (Past 12 Hours) Vital Signs Temp Pulse Resp BP BP Pulse Ox 04/15/19 15:28 37.1 C 76 19 126/85 92 04/15/19 14:11 96 H 18 96 04/15/19 11:24 36.5 C 91 H 20 128/66 94 04/15/19 07:34 36.9 C 87 18 138/71 95 04/15/19 07:17 87 18 92
[2019-04-16] MEDS: LEVALBUTEROL 1.25MG/0.5ML NEB INH SCH ×4 (02:03→19:12)
[2019-04-16] MEDS: IPRATROPIUM BROMIDE NEB SOLN 0.02% 2.5 ML VIAL INH SCH ×4 (02:03→19:12)
[2019-04-16] MEDS: HEPARIN SOD 5,000 UNIT/0.5 ML VIAL SQ SCH ×3 (05:48→20:51)
[2019-04-16 07:17] LABS: BUN Creatinine Ratio 29.9 (10-20); Calcium 9.9 mg/dl (8.5-10.1); Creatinine Clr Calc Pharmacy 27.4 ml/min; Est GFR (African American) 36.4; Est GFR (Non-African American) 31.4; Potassium 3.9 mmol/L (3.5-5.1)
[2019-04-16] MEDS: ASPIRIN 81 MG ECTAB PO SCH (08:17)
[2019-04-16] MEDS: ATORVASTATIN 40 MG TAB PO SCH (08:17)
[2019-04-16] MEDS: METOPROLOL TARTRATE 50 MG TAB PO SCH ×2 (08:18→20:52)
[2019-04-16] MEDS: CITALOPRAM 20 MG TAB PO SCH (08:18)
[2019-04-16] MEDS: PANTOprazole 40 MG TAB PO SCH (08:19)
[2019-04-16] MEDS: POLYETHYLENE (MIRALAX) 17 GM PACK PO SCH (08:19)
[2019-04-16] MEDS: ALLOPURINOL 100 MG TAB PO SCH ×2 (08:19→20:01)
[2019-04-16] MEDS: DOCUSATE SODIUM 100 MG CAP PO SCH ×2 (08:19→20:01)
[2019-04-16] MEDS: CEROVITE ADV FORMULA TAB PO SCH (08:19)
[2019-04-16] MEDS ORDERED: SODIUM CHLORIDE 0.9% 500 ML IV ONE (08:42)
--- NOTE | 2019-04-16 08:57 | XRay Report ---
XR chest 1V portable CLINICAL HISTORY: Fever dyspnea COMPARISON STUDY: 04/12/2019 FINDINGS: Moderately improved exam. Inspiratory volumes remain diminished. Aeration of the lungs are improved. IMPRESSION: Improved exam. Lungs are now considered essentially clear. Persistent decrease in inspir atory volumes. The above report was generated using voice recognition software. It may contain grammatical, syntax or spelling errors. Electronically signed by: Veto Conley M.D. 04/16/2019 8:56 AM
[2019-04-16 09:25] LABS: Basophils # (auto) 0.02 K/uL (0-0.2); Basophils % (auto) 0.2 %; Eosinophils # (auto) 0.09 K/uL (0-0.5); Eosinophils % (auto) 1.1 %; Hematocrit (blood only) 32.8 % (37-47); Hemoglobin 10.6 g/dL (12.0-16.0); Immature Granulocytes # (auto) 0.01 K/uL (0.00-0.02); Immature Granulocytes % (auto) 0.1 %; Lymphocytes # (auto) 1.07 K/uL (1.2-3.4); Lymphocytes % (auto) 12.8 %; Mean Corpuscular Hgb Conc 32.3 g/dL (32-36); Mean Corpuscular Volume 112.3 fL (80-100); Mean Platelet Volume 11.4 fL (7.4-10.4); Monocytes # (auto) 0.61 K/uL (0.11-0.59); Monocytes % (auto) 7.3 %; Neutrophils # (auto) 6.58 K/uL (1.4-6.5); Neutrophils % (auto) 78.5 %; Platelet Count 188 K/uL (130-400); RDW Coefficient of Variation 16.3 % (11.5-14.5); RDW Standard Deviation 66.1 fL (36.4-46.3); Red Blood Count 2.92 M/uL (4.2-5.4); White Blood Count 8.38 K/uL (4.8-10.8)
[2019-04-16] MEDS: INSULIN ASPART 100 UNITS/ML 3 ML PEN SC SCH ×3 (09:41→16:29)
[2019-04-16 09:44] LABS: Macrocytosis Present
--- NOTE | 2019-04-16 13:33 | Pulmonology Progress Note ---
Date of Service April 16, 2019 Assessment & Plan (1) Acute on chronic respiratory failure with hypoxia and hypercapnia: Unfortunately the patient continues to refuse to wear BiPAP for more than a few minutes. Would continue the nebulizer treatments every 6 hours. She is very hard to treat under the current circumstances. Adjust oxygen to keep saturations between 88 and 92% in light of her hypercarbia. Again, consideration could be given to doing an arterial blood gas to verify that her PCO2 is elevated and the cause for her confusion, but in light of the fact she refuses to wear BiPAP may not make any difference. The underlying cause for the fever is unclear. The x-ray did not show any new findings and in fact was actually better. Reportedly family would like to have her at home. Under the current circumstances she would require tremendous amount of care. Her stated she had been in rehab at [facility] for 3 months earlier this year. Obviously her problems began more than just recently. (2) Elevated diaphragm: The cause of the elevated diaphragm mainly on the left is unclear. It does appear to be substantial based upon x-ray and prior CAT scan from 5 months ago. It is unknown if she has diaphragm paralysis or not. In light of her poor clinical status it likely does not make any significant difference if there is complete paralysis or not. I sniff test is probably not needed. Prognosis is very guarded. Subjective The patient has had increased confusion. She has been more restless. She is not able to give me any significant history. Her is with her at the time of my exam. There has been no reported shortness of breath. She has not been coughing. She did have a fever earlier today. There has been no new symptoms. Review of Systems Review of Systems: As noted above Physical Exam Physical Exam: The patient is an 83-year-old female who was restless. She remains hard of hearing. She has had confusion as noted but she did recognize her . She was able to tell me that they have been 59 years. Her indicated she would not follow his commands however. Eye exam shows implants in each eye. Nares clear. Mouth exam shows no erythema or exudate. No lymph nodes palpable. Temperature this morning 37.8. Most recent temperature 36.7. Cardiac rate 88/min. Rhythm was regular. Earlier today heart rate was up to 114. Blood pressure 132/64. Lung wilde revealed decreased breath sounds especially on the left. Faint rales were heard bilaterally. Respiratory rate 18. Saturation was 92% on nasal cannula. The patient again would refuse to wear the BiPAP for more than a few minutes. Extremities showed scars on both legs with trace edema. Results & Data Vital Signs (Past 12 Hours) Vital Signs Temp Pulse Resp BP BP Pulse Ox 04/16/19 12:15 96 04/16/19 11:39 36.7 C 88 18 132/64 96 04/16/19 10:41 37.8 C H 04/16/19 09:45 96 04/16/19 08:34 109/64 04/16/19 08:25 37.7 C H 114 H 04/16/19 07:24 36.8 C 104 H 22 181/72 H 93 04/16/19 07:06 98 H 19 95 04/16/19 04:31 36.8 C 90 20 108/57 L 91 04/16/19 02:03 88 18 92 Laboratory Results White count today is 8.38. Hemoglobin 10.6. Platelets 188,000. Sodium is 141, potassium 3.9 chloride 100, bicarb 37 BUN is 45 with creatinine 1.51. Blood sugar 121. Diagnostic Findings Chest x-ray today showed somewhat improved aeration. There is still is a very high left hemidiaphragm with approximately one third of the lung field being aerated on the left.
--- NOTE | 2019-04-16 15:50 | Neurology Consultation ---
Date of Consultation April 16, 2019 Assessment & Plan (1) Encephalopathy: 1 keep lights on during day 2. bi pap for increased respiratory status 3. 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 sequel 12.5 mg hs and try to encourage sleep with lights out at same time every night 5. pulmonary /cardiology for any further input 6. primary team for medical management 7. no further imaging at this time will continue to follow Supervising Physician Co-Signing Physician Notes I have seen and discussed above patient with Dr Shivam Pineda, neurology I have seen this 83-year-old woman with Sarah Cruz PA-C and discussed her case with her daughter and with Dr. Magana. 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 When we first saw her she was quite agitated but her CPAP mask was in a very unusual posture and against her inferior nose and she was clearly in pain. Once we adjusted the mask she became much more cooperative less agitated respond to questions obeyed commands and appeared to be much improved. Her exam is nonfocal with the exception of the encephalopathy Her CT scan on admission shows leukoencephalopathy not surprising in light of her multiple vascular risk factors According to her daughter she is mentally sharp at baseline but her is less supportive of this assessment and thinks there may be some intermittent low-grade confusion but it is not clear to me whether this was recently and a manifestation of her impending toxic encephalopathy or more of a chronic base line state The issues academic for now we are recommending a trial of Seroquel or some form of sedation, reinstituting her sleep-wake cycle and doing no further neurologic testing unless the situation will change. We will check back tomorrow and will consider performance of an EEG but at present I think her level of cooperation with this recording would be so limited that the tracing would be of no diagnostic value Overall then a primarily hypoxic related encephalopathy with a superimposed hospital psychosis and hopefully will be at least in part reversible with appropriate management Shivam Pineda MD History of Present Illness Reason for Consultation: mental status change Requesting Physician: Ash Weiner MD Attending Physician: Ash Weiner MD History of Present Illness Jessi is an 83 year old female with PMH chronic respiratory failure on home O2, right-sided heart failure as per records, pulmonary hypertension on TTE November 2018, hypertension, CAD as per records, CRI (baseline creatinine 1.6), chronic anemia (baseline hemoglobin 9-10),, DM 2 on oral medications, ESBL E. coli UTI ongoing Invanz Rx, history subdural hematoma. She was seen in [facility] bilateral femoral fracture fractures secondary to mechanical fall status post surgery. Postop course complicated by hypotension, respiratory failure, pulmonary congestion. TTE during confinement showed EF of 70%. Hyperdynamic LV contractility with mid cavity obliteration and a late peaking gradient of 55 mmHg. RV systolic function qualitatively normal. Severe pulmonary hypertension present estimated PASP 65 mmHg. She was oxygen dependent upon discharge to [facility] for rehab. she was confused and ordered oral antibiotic for UTI which later grew ESBL E. coli. Patient later switched to 7-day course Invanz a few days ago. She was refusing to wear her bi pap and has not slept for 3 days. She is now more confused and does have her bipap on currently. Her hus band is in the room and states she is minimally mobile at baseline only able to walk from bathroom to bed with SOB. Allergies Allergy/AdvReac Type Severity Reaction Status Date / Time codeine AdvReac Intermediate Neuro Verified 04/12/19 22:45 Changes haloperidol [From Haldol] AdvReac Intermediate confusion Verified 04/13/19 09:15 tramadol AdvReac Intermediate confusion Verified 04/13/19 09:15 morphine AdvReac confusion Verified 04/13/19 09:15 Home Medications Home Medications Medication Instructions Recorded Confirmed Type acetaminophen [Tylenol] 650 mg PO Q8H 11/12/18 04/12/19 History allopurinol 100 mg PO BID 11/12/18 04/12/19 History citalopram 10 mg PO DAILY 11/12/18 04/12/19 History cranberry conc-ascorbic acid 1 cap PO DAILY 11/12/18 04/12/19 History docusate sodium [DOK] 100 mg PO BID 11/12/18 04/12/19 History furosemide [Lasix] 20 mg PO Q2D 11/12/18 04/12/19 History glipizide 2.5 mg PO BIDM 11/12/18 04/12/19 History hydralazine 25 mg PO TID 11/12/18 04/12/19 History magnesium oxide 400 mg PO DAILY 11/12/18 04/12/19 History metoprolol tartrate 50 mg PO BID 11/12/18 04/12/19 History pantoprazole 40 mg PO DAILY 11/12/18 04/12/19 History Mu-J4-jym-wjro-sdu-trjw-boron 1 tab PO BID 04/12/19 04/12/19 History [Caltrate 600-D Plus Minerals] aspirin 81 mg PO DAILY 04/12/19 04/12/19 History atorvastatin 40 mg PO DAILY 04/12/19 04/12/19 History cyanocobalamin (vitamin B-12) 1,000 mcg PO DAILY 04/12/19 04/12/19 History [Vitamin B-12] diclofenac sodium [Voltaren] 2 g TOPICAL QID 04/12/19 04/12/19 History rahafuaj-onzt-RO-calcium-mins 1 tab PO DAILY 04/12/19 04/12/19 History [Women's One Daily] polyethylene glycol 3350 17 g PO DAILY 04/12/19 04/12/19 History Patient History Medical History Diabetes (Chronic) Hypertension (Chronic) Family History Other Family history non-contributory Social History Preferred Language: Pakistani Communication Ability: Effective 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: No Beliefs That Will Affect Care: None marital status: Current Living Situation: Spouse Other Information That Helps Us Care for You: No Feels Safe at Home: Yes Safety Concerns: Feels Safe At This Time Smoking Status: Never smoker Second Hand Exposure: No Hx Alcohol Use: No Hx Substance Use: No Physical Exam Physical Exam: Gen: alert bipap rejusted and less agitated lungs course breath sounds CV RRR squeezes hands bilaterally and pulls with command wiggles toes bilaterally with command down going toes difficult to assess MS with bipap in place Results & Data Vital Signs (Past 12 Hours) Vital Signs Temp Pulse Resp BP BP Pulse Ox 04/16/19 12:15 96 04/16/19 11:39 36.7 C 88 18 132/64 96 04/16/19 10:41 37.8 C H 04/16/19 09:45 96 04/16/19 08:34 109/64 04/16/19 08:25 37.7 C H 114 H 04/16/19 07:24 36.8 C 104 H 22 181/72 H 93 04/16/19 07:06 98 H 19 95 04/16/19 04:31 36.8 C 90 20 108/57 L 91 Laboratory Results Abnormal lab results 04/15/19 04/15/19 04/16/19 Range/Units 16:22 20:19 06:31 RBC (4.2-5.4) M/uL Hgb (12.0-16.0) g/dL Hct (37-47) % MCV (80-100) fL MCH (25-34) pg RDW Std Deviation (36.4-46.3) fL RDW Coeff of Devin (11.5-14.5) % MPV (7.4-10.4) fL Neut # (Auto) (1.4-6.5) K/uL Lymph # (Auto) (1.2-3.4) K/uL [place] # (Auto) (0.11-0.59) K/uL Carbon Dioxide 37 H (21-32) mmol/L BUN 45 H (7-18) mg/dl Creatinine 1.51 H (0.6-1.2) mg/dl BUN/Creatinine Ratio 29.9 H (10-20) Glucose 107 H (70-99) mg/dl POC Glucose 109 H 101 H (70-99) 04/16/19 04/16/19 04/16/19 Range/Units 07:34 09:03 11:09 RBC 2.92 L (4.2-5.4) M/uL Hgb 10.6 L (12.0-16.0) g/dL Hct 32.8 L (37-47) % MCV 112.3 H (80-100) fL MCH 36.3 H (25-34) pg RDW Std Deviation 66.1 H (36.4-46.3) fL RDW Coeff of Devin 16.3 H (11.5-14.5) % MPV 11.4 H (7.4-10.4) fL Neut # (Auto) 6.58 H (1.4-6.5) K/uL Lymph # (Auto) 1.07 L (1.2-3.4) K/uL [place] # (Auto) 0.61 H (0.11-0.59) K/uL Carbon Dioxide (21-32) mmol/L BUN (7-18) mg/dl Creatinine (0.6-1.2) mg/dl BUN/Creatinine Ratio (10-20) Glucose (70-99) mg/dl POC Glucose 121 H 113 H (70-99) Diagnostic Findings CT head 04/12/2019-Chronic small vessel ischemic change. No acute intracranial abnormality.
[2019-04-16 16:07] LABS: Base Excess VBG 11.3 mEq/L; Oxygen Saturation VBG 87.1 %; pH VBG 7.49 (7.36-7.41)
--- NOTE | 2019-04-16 16:39 | Hospitalist Progress Note ---
Date of Service April 16, 2019 Assessment & Plan (1) Encephalopathy: Metabolic Encephalopathy: Likely Multifactorial Acute on chronic hypoxemic, hypercapnic respiratory failure, delirium, could have underlying dementia Acute respiratory acidosis due to CO2 retention Pulmonary HTN Could have underlying ELIZABETH Non Complaint/Unable to tolerate BiPAP Head CT:Chronic small vessel ischemic change. No acute intracranial abnormality. CXR:Worsening lung aeration, which is very low on the current exam. Increasing congestive change and volume overload suspected. Less likely differential considerations include bronchitis or reactive airways disease. Elevated Diaphragm: Chronic--unknown etiology, ? paralysis. Contributing to decreased lung volumes Completed IV antibiotics Continue nebs Appreciate Pulmonary Input Not compliant with BiPAP use QHS Continue supplemental oxygen to titrate Sats 88-92% Patient's family understands the prognosis is guarded. Palliative Care consulted to identify goals of care Check VBG, Continue BiPAP as tolerated Will try Seroquel for Insomnia Appreciate Neurology Input Decompensated right-sided heart failure: resolved Pulmonary [place] [facility] [place] Was on lasix 20 mg every 48 hours Received IV diuretics Monitor I/Os, daily weight ECHO:EF:65-70%, Small LV, Mild TR Euvolemic currently Appreciate Cardiology Input Continue home diuretics Partially treated complicated UTI ESBL E. coli on outpatient urine culture Urine Cx from 04/12/19:No growth to date Completed InVanz therapy for 7 day course Check Blood Culture as febrile today Hypertension stable Continue current medications H/O CAD Continue aspirin, Lipitor, Metoprolol CKD IV Cr at baseline Monitor renal function Avoid Nephrotoxic agents as able Anemia of Chronic disease Hb at baseline monitor DM II: Last A1C: 6.0 in Nov 2018 A1C: 5.4 Hold PO meds Continue Insulin therapy while hospitalized DVT Px: Heparin SQ Code Status DNI/DNR Disposition: Plan to discharge home with home health Patient family prefers not interested in skilled nurse facility placement Family: POA Ms. Mare Rodriguez. (contact #[phone]) Case management following Subjective Patient is seen and examined at bedside Had low-grade fever, tachycardic this morning Continues to be confused Discussed with patient's , daughter at bedside in detail Also discussed with neurology today Plan to give low-dose Seroquel tonight Patient complains of chronic back, leg pain Tachycardia improved with IV fluids Chest x-ray improved exam Non compliant with BiPAP Review of Systems Review of Systems: Unobtainable due to cognitive status Physical Exam Physical Exam: Physical Exam: Vitals signs as noted above General Appearance:Elderly, no apparent distress Head: normocephalic, Atraumatic Eyes: normal inspection, EOMI Neck: supple, Trachea midline Respiratory/Chest: Decreased breath sounds, CTA Cardiovascular: S1, S2, No murmur Abdomen/GI:Soft, Non tender, Bowel sounds present Extremities/Musculoskelatal:normal inspection, 1+ B/L pedal edema Neurologic/Psych:grossly no focal neurological deficits Skin: normal color, warm Results & Data Vital Signs (Past 12 Hours) Vital Signs Temp Pulse Resp BP BP Pulse Ox 04/16/19 16:17 37.2 C 86 18 126/66 93 04/16/19 12:15 96 04/16/19 11:39 36.7 C 88 18 132/64 96 04/16/19 10:41 37.8 C H 04/16/19 09:45 96 04/16/19 08:34 109/64 04/16/19 08:25 37.7 C H 114 H 04/16/19 07:24 36.8 C 104 H 22 181/72 H 93 04/16/19 07:06 98 H 19 95 04/16/19 04:31 36.8 C 90 20 108/57 L 91 Laboratory Results Short CBC 04/16/19 Range/Units 09:03 WBC 8.38 (4.8-10.8) K/uL Hgb 10.6 L (12.0-16.0) g/dL Hct 32.8 L (37-47) % Plt Count 188 (130-400) K/uL BMP 04/16/19 06:31 Sodium 141 Potassium 3.9 Chloride 100 Carbon Dioxide 37 H BUN 45 H Creatinine 1.51 H Glucose 107 H Calcium 9.9
--- NOTE | 2019-04-16 18:14 | Communication Note ---
Date of Service: April 16, 2019 Made aware by RN that patient seems to be clinically deteriorating. Patient noted to be pocketing food, not swallowing. Also noted to be staring. Made p atient NPO. Mental status seems to be deteriorating. VBG after 4 hours of BiPAP on showed improved CO2 levels. Updated family at bedside. Family plans to transition her to comfort measures if she continues to deteriorate and goes into respiratory distress. Palliative care consulted to address goals of care. Will Continue BiPAP for now and if clinically deteriorates, will transition to comfort measures if patient agrees.
[2019-04-16] MEDS: MELATONIN 10 MG PO SCH (20:01)
[2019-04-16] MEDS ORDERED: METOPROLOL TARTRATE 1 MG/ML VIAL IV ONE (20:54)
[2019-04-16] MEDS ORDERED: QUETIAPINE FUMARATE 25 MG TABLET PO ONE (21:00)
[2019-04-17] MEDS: INSULIN ASPART 100 UNITS/ML 3 ML PEN SC SCH ×5 (00:15→23:55)
[2019-04-17] MEDS: LEVALBUTEROL 1.25MG/0.5ML NEB INH SCH ×4 (01:51→19:41)
[2019-04-17] MEDS: IPRATROPIUM BROMIDE NEB SOLN 0.02% 2.5 ML VIAL INH SCH ×4 (01:52→19:41)
[2019-04-17] MEDS: HEPARIN SOD 5,000 UNIT/0.5 ML VIAL SQ SCH ×3 (06:08→21:55)
[2019-04-17] MEDS: CITALOPRAM 20 MG TAB PO SCH (11:40)
[2019-04-17] MEDS: ATORVASTATIN 40 MG TAB PO SCH (11:40)
[2019-04-17] MEDS: FUROSEMIDE 20 MG TAB PO SCH (11:40)
[2019-04-17] MEDS: DOCUSATE SODIUM 100 MG CAP PO SCH ×2 (11:40→20:57)
[2019-04-17] MEDS: ASPIRIN 81 MG ECTAB PO SCH (11:40)
[2019-04-17] MEDS: POLYETHYLENE (MIRALAX) 17 GM PACK PO SCH (11:41)
[2019-04-17] MEDS: PANTOprazole 40 MG TAB PO SCH (11:41)
[2019-04-17] MEDS: ALLOPURINOL 100 MG TAB PO SCH ×2 (11:41→20:57)
[2019-04-17] MEDS: CEROVITE ADV FORMULA TAB PO SCH (11:41)
[2019-04-17] MEDS: METOPROLOL TARTRATE 50 MG TAB PO SCH ×2 (11:41→20:56)
--- NOTE | 2019-04-17 12:16 | Pulmonology Progress Note ---
Date of Service April 17, 2019 Assessment & Plan (1) Acute on chronic respiratory failure with hypoxia and hypercapnia: Would continue current therapy. The patient has been more compliant with BiPAP in the past day. Would continue the neb treatments with ipratropium and levalbuterol. Prognosis is very guarded. (2) Elevated diaphragm: Subjective The patient is difficult to evaluate. According to nursing staff she did wear her BiPAP last night. She seemed more oriented this morning according to the staff. Earlier this morning she developed increasing shortness of breath and decreased oxygen saturations. She apparently pulled her oxygen off and had saturations in the 50s as per her nurse. The patient was sleeping when I first came into her room. She did have BiPAP on. She then awakened and was very restless and agitated. She was screaming for me to get out. I think she was very startled upon awakening. She was attempting to pull her gown off. She clearly was not oriented. Review of Systems 2 Review of Systems: As noted above Physical Exam Physical Exam: The patient is an 83-year-old female who is very restless and agitated. She was sleeping comfortably when I first came in but upon awakening was agitated. Temperature is 36 degrees. Her last fever was 24 hours ago when it was 37.8. Cardiac rate 87. Rhythm regular. Blood pressure 135/81. Lung wilde anteriorly were clear. Posteriorly the breath sounds were diminished especially on the left. Respiratory rate at the time of my exam was 26/min. It became more as she awakened and became agitated. Saturation was 97% on the BiPAP with 40% oxygen. Extremities showed no cyanosis clubbing or edema. Results & Data Vital Signs (Past 12 Hours) Vital Signs Temp Pulse Pulse Resp BP BP Pulse Ox 04/17/19 07:38 36.9 C 103 H 28 H 145/72 H 92 04/17/19 07:30 96 04/17/19 07:14 109 H 22 98 04/17/19 07:13 109 H 22 98 04/17/19 04:00 36.5 C 110 H 22 146/67 H 98 04/17/19 02:05 87 22 99 Laboratory Results Blood sugar this morning was 84. No other labs from today were noted. Yesterday she had a venous ABG that actually showed a PCO2 of only 49. This would be much lower than expected. Blood cultures are negative at 48 hours.
--- NOTE | 2019-04-17 12:53 | Palliative Care Consultation ---
Date of Consultation April 17, 2019 Assessment & Plan (1) Goals of care, counseling/discussion: -83 year old female patient with PMH chronic respiratory failure on home oxygen, right sided heart failure, pulmonary htn, htn, CAD, CRI with baseline creatinine ~1.6, chronic anemia, DM, ESBL E. coli, subdural hematoma, and diaphragmatic paralysis, presented to the hospital four days ago with c/o increased weakness and lethargy. Patient was last in our facility in November 2018 after a mechanical fall with BL femur fractures, at which time she was sent to [facility] and had surgery. Patient's hospital stay at [facility] was complicated by respiratory failure, pulmonary congestion and hospital psychosis. She was then released to [facility] for rehab, where she remained for about four months. She was then sent home where she lives with her , along with [facility] in-home care and waiver caregivers for several hours a day. She has been at home for about a month, and seemed to be doing okay until recently when she was found to have increased confusion a couple weeks ago. Patient has frequent UTIs, so family took a urine sample to PCP. Patient was started on abx as outpatient and completed a 10 day course. She was then called by her PCP and was told that she had ESBL and the bacteria was actually resistant to the abx she was initially given. She then was on Invanz and receiving injections at home. Patient continued to have some confusion and somnolence until eventually it was difficult to wake her up, so family called EMS. Since admission, patient has been treated with Invanz for the ESBL E. coli. Her creatinine was 1.5 on admission, but this is her baseline. CXR initially showed congestive change and volume overload, as well as worsening lung aeration. She has been diuresed with IV Lasix. Patient also has low lung volumes due to diaphragm paralysis, which has been present for years. On admission, patient's CO2 level was >100. She has been found to have ELIZABETH and is now on BIpap at night. Unfortunately, patient did not get any sleep since she was admitted and her confusion started worsening, but CO2 remained normal. Last night, her saturations began dropping, CXR was clear. She was put on bipap and given Benadryl to help with sleep. Patient's family was told that prognosis was guarded, so her daughter stayed for most of the night. Patient's family stated that if patient continued to deteriorate, they wanted no heroic measures such as intubation or CPR. Palliative care is now consulted to discuss goals of care. -Met with patient this morning in room 234. She was just taken off the bipap when I arrived and did wake easily. She was oriented to person, place and year. Did not know the month. Remembered that she is in the hospital with UTI but could not elaborate much more. She had no recollection of the happenings of last night. I called patient's daughter/POAMare. -Met with patient and her daughter, Mare, in room 234 this afternoon. Patient looking much better, much more awake and alert. Sitting up in chair. Daughter was pleased to see patient's progress since they were unsure if she would improve or not last night/this morning. -Mare confirmed that patient would not want any heroic measures done to keep her alive-- DNR, DNI. -At this point, the goal is to get patient home with her prior services. Mare plans to get waiver services increased if possible. She also states that the patient was upset about coming to the hospital, but when faced with life or , she believes her mother would have wanted to come to the hospital for treatment. However, if patient continues to decline or if it gets to the point where patient is dependent on the bipap for the majority of the day, they may need to readdress goals of care. We discussed the possibility of home hospice if that is the case. -Mare has some concerns that the patient's does not understand the gravity of the situation and how tenuous the patient's health is. She did ask that I speak with him to discuss the patient's medical condition and GOC. I asked her to please let me know when patient's will be present tomorrow so I can come speak with him. -For now, continue current treatment. Extremely important for patient to continue wearing bipap during sleep. She is on continuous pulse ox at this time. Patient remains in a fragile state. -Palliative care will continue to follow as needed throughout hospitalization. (2) Acute on chronic respiratory failure with hypoxia and hypercapnia: (3) Elevated diaphragm: (4) UTI (urinary tract infection): (5) RHF (right heart failure): History of Present Illness Reason for Consultation: Goals of care Requesting Physician: Dr. Weiner Attending Physician: Ash Weiner MD History of Present Illness This 83 year old female patient with PMH chronic respiratory failure on home oxygen, right sided heart failure, pulmonary htn, htn, CAD, CRI with baseline creatinine ~1.6, chronic anemia, DM, ESBL E. coli, subdural hematoma, and diaphragmatic paralysis, presented to the hospital four days ago with c/o increased weakness and lethargy. Patient was last in our facility in November 2018 after a mechanical fall with BL femur fractures, at which time she was sent to [facility] and had surgery. Patient's hospital stay at [facility] was complicated by respiratory failure, pulmonary congestion and hospital psychosis. She was then released to [facility] for rehab, where she remained for about four months. She was then sent home where she lives with her , along with [facility] in-home care and waiver caregivers for several hours a day. She has been at home for about a month, and seemed to be doing okay until recently when she was found to have increased confusion a couple weeks ago. Patient has frequent UTIs, so family took a urine sample to PCP. Patient was started on abx as outpatient and completed a 10 day course. She was then called by her PCP and was told that she had ESBL and the bacteria was actually resistant to the abx she was initially given. She then was on Invanz and receiving injections at home. Patient continued to have some confusion and somnolence until eventually it was difficult to wake her up, so family called EMS. Since admission, patient has been treated with Invanz for the ESBL E. coli. Her creatinine was 1.5 on admission, but this is her baseline. CXR initially showed congestive change and volume overload, as well as worsening lung aeration. She has been diuresed with IV Lasix. Patient also has low lung volumes due to diaphragm paralysis, which has been present for years. On admission, patient's CO2 level was >100. She has been found to have ELIZABETH and is now on BIpap at night. Unfortunately, patient did not get any sleep since she was admitted and her confusion started worsening, but CO2 remained normal. Last night, her saturations began dropping, CXR was clear. She was put on bipap and given Benadryl to help with sleep. Patient's family was told that prognosis was guarded, so her daughter stayed for most of the night. Patient's family stated that if patient continued to deteriorate, they wanted no heroic measures such as intubation or CPR. Palliative care is now consulted to discuss goals of care. Thank you kindly for this consult. I will follow as needed. Allergies Allergy/AdvReac Type Severity Reaction Status Date / Time codeine AdvReac Intermediate Neuro Verified 04/12/19 22:45 Changes haloperidol [From Haldol] AdvReac Intermediate confusion Verified 04/13/19 09:15 tramadol AdvReac Intermediate confusion Verified 04/13/19 09:15 morphine AdvReac confusion Verified 04/13/19 09:15 Home Medications Home Medications Medication Instructions Recorded Confirmed Type acetaminophen [Tylenol] 650 mg PO Q8H 11/12/18 04/12/19 History allopurinol 100 mg PO BID 11/12/18 04/12/19 History citalopram 10 mg PO DAILY 11/12/18 04/12/19 History cranberry conc-ascorbic acid 1 cap PO DAILY 11/12/18 04/12/19 History docusate sodium [DOK] 100 mg PO BID 11/12/18 04/12/19 History furosemide [Lasix] 20 mg PO Q2D 11/12/18 04/12/19 History glipizide 2.5 mg PO BIDM 11/12/18 04/12/19 History hydralazine 25 mg PO TID 11/12/18 04/12/19 History magnesium oxide 400 mg PO DAILY 11/12/18 04/12/19 History metoprolol tartrate 50 mg PO BID 11/12/18 04/12/19 History pantoprazole 40 mg PO DAILY 11/12/18 04/12/19 History Uk-X0-ijn-lsvy-gux-glag-boron 1 tab PO BID 04/12/19 04/12/19 History [Caltrate 600-D Plus Minerals] aspirin 81 mg PO DAILY 04/12/19 04/12/19 History atorvastatin 40 mg PO DAILY 04/12/19 04/12/19 History cyanocobalamin (vitamin B-12) 1,000 mcg PO DAILY 04/12/19 04/12/19 History [Vitamin B-12] diclofenac sodium [Voltaren] 2 g TOPICAL QID 04/12/19 04/12/19 History lotmxrhj-zfch-WO-calcium-mins 1 tab PO DAILY 04/12/19 04/12/19 History [Women's One Daily] polyethylene glycol 3350 17 g PO DAILY 04/12/19 04/12/19 History Patient History Medical History Diabetes (Chronic) Hypertension (Chronic) Family History Other Family history non-contributory Social History Preferred Language: Maori Communication Ability: Effective 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 Beliefs That Will Affect Care: None marital status: Current Living Situation: Spouse Other Information That Helps Us Care for You: No Feels Safe at Home: Yes Safety Concerns: Feels Safe At This Time Smoking Status: Never smoker Second Hand Exposure: No Hx Alcohol Use: No Hx Substance Use: No Review of Systems Constitutional: + weakness Ear, Nose, Mouth, Throat: + dry mouth; no dysphagia Respiratory: no dyspnea Cardiovascular: no chest pain Gastrointestinal: no abdominal pain and no nausea Psychiatric: no anxiety Physical Exam Constitutional: + ill appearing (deconditioned) ENMT: external ear and nose normal, oropharynx normal Neck: normal visual inspection Respiratory: + labored breathing (mildly) Auscultation: + diminished lung sounds (air exchange extremely diminished) Cardiovascular: Rate/Rhythm: regular rate and regular rhythm Gastrointestinal (Abdomen): Inspection/Auscultation: abdomen normal to inspection and normal bowel sounds Percussion/Palpation: abdomen soft; abdomen nontender Neurologic: moves all extremities and awake Psychiatric: Orientation: alert, oriented to person and oriented to place; + not oriented to time Insight: + poor insight Results & Data Vital Signs (Past 12 Hours) Vital Signs Temp Pulse Pulse Resp BP BP Pulse Ox 04/17/19 12:04 36.0 C L 87 26 H 135/81 98 04/17/19 07:38 36.9 C 103 H 28 H 145/72 H 92 04/17/19 07:30 96 04/17/19 07:14 109 H 22 98 04/17/19 07:13 109 H 22 98 07/18/19 04:00 36.5 C 110 H 22 146/67 H 98 04/17/19 02:05 87 22 99 PG Care Time/CCT Prolonged Care Time Prolonged Care Time: Yes Total Prolonged Care Time: 100 Time Spent Midlevel [100] minutes with >50% of time spent at bedside with [patient and family] discussing [condition and GOC].
--- NOTE | 2019-04-17 14:36 | Neurology Progress Note ---
Date of Service April 17, 2019 Assessment & Plan (1) Encephalopathy: 1 keep lights on during day 2. bi pap for increased respiratory status 3. 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 sequel 12.5 mg hs and try to encourage sleep with lights out at same time every night 5. pulmonary /cardiology for any further input 6. primary team for medical management 7. no further imaging at this time 8. patient now back to baseline after benadryl given and sleep ensued will sign off for now will be available for questions concerns as needed. Supervising Physician Co-Signing Physician Notes I have seen and discussed above patient with Dr Shivam Pineda, neurology Mrs. Arellano is remarkably improved today after a night sleep engineered by Dr. Metzger administered low-dose Benadryl and this resulted in a prompt deep sleep and arousal this morning in a nearly normal mental status which according to her daughter is 90% of her baseline. She is awake conversant has been off her CPAP since this morning and is not decompensating pulmonary point review At this point the neurologic examination is essentially normal with only a mild degree of residual encephalopathy that I suspect will clear once her acute medical problems are stable and I think neurology will sign off and recommend no further testing to this point unless of course would change clinically Shivam Pineda MD Braulio Bowen is an 83 year old female with PMH chronic respiratory failure on home O2, right-sided heart failure as per records, pulmonary hypertension on TTE November 2018, hypertension, CAD as per records, CRI (baseline creatinine 1.6), chronic anemia (baseline hemoglobin 9-10),, DM 2 on oral medications, ESBL E. coli UTI ongoing Invanz Rx, history subdural hematoma. She was seen in [facility] bilateral femoral fracture fractures secondary to mechanical fall status post surgery. Postop course complicated by hypotension, respiratory failure, pulmonary congestion. TTE during confinement showed EF of 70%. Hyperdynamic LV contractility with mid cavity obliteration and a late peaking gradient of 55 mmHg. RV systolic function qualitatively normal. Severe pulmonary hypertension present estimated PASP 65 mmHg. She was oxygen dependent upon discharge to [facility] for rehab. she was confused and ordered oral antibiotic for UTI which later grew ESBL E. coli. She later switched to 7-day course Invanz a few days ago. She was refusing to wear her bi pap and has not slept for 3 days. When we saw yesterday she was confused but was wearing her bipap. Her is in the room and states she is minimally mobile at baseline only able to walk from bathroom to bed with SOB. She had not slept for 3 days. Last night she was given benadryl and she did sleep through the night. She is now sitting up in a chair with only NC O2 and having a conversation with her daughter. denies CP, SOB, abdominal pain, one sided weakness, numbness tingling, she does have a "bad" left shoulder. Physical Exam Physical Exam: Gen: alert NAD sitting in bedside chair with NC O2 lung course breath sounds CV RRR finger to nose no bi pass hand care assistant bicep triceps 4+/5 states in [facility], year 2018, month March Results & Data Vital Signs (Past 12 Hours) Vital Signs Temp Pulse Pulse Resp BP BP Pulse Ox 04/17/19 14:05 99 04/17/19 12:04 36.0 C L 87 26 H 135/81 98 04/17/19 07:38 36.9 C 103 H 28 H 145/72 H 92 04/17/19 07:30 96 04/17/19 07:14 109 H 22 98 04/17/19 07:13 109 H 22 98 04/17/19 04:00 36.5 C 110 H 22 146/67 H 98 Laboratory Results Abnormal lab results 04/16/19 04/16/19 04/17/19 Range/Units 15:40 16:06 13:59 VBG pH 7.49 H (7.36-7.41) POC Glucose 107 H 136 H (70-99) Diagnostic Findings no new imaging
--- NOTE | 2019-04-17 17:54 | Hospitalist Progress Note ---
Date of Service April 17, 2019 Assessment & Plan (1) Encephalopathy: Metabolic Encephalopathy: Likely Multifactorial Acute on chronic hypoxemic, hypercapnic respiratory failure, delirium, could have underlying dementia Acute respiratory acidosis due to CO2 retention Pulmonary HTN Could have underlying ELIZABETH Non Complaint/Unable to tolerate BiPAP Head CT:Chronic small vessel ischemic change. No acute intracranial abnormality. CXR:Worsening lung aeration, which is very low on the current exam. Increasing congestive change and volume overload suspected. Less likely differential considerations include bronchitis or reactive airways disease. Elevated Diaphragm: Chronic--unknown etiology, ? paralysis. Contributing to decreased lung volumes Completed IV antibiotics Continue nebs Appreciate Pulmonary Input Initially not compliant with BiPAP use QHS Continue supplemental oxygen to titrate Sats 88-92% Patient's family understands the prognosis is very guarded. Appreciate Palliative Care/Neurology Input Continue BiPAP as tolerated, Nebs Family does not want any heroic measures if patient declines Decompensated right-sided heart failure: resolved Pulmonary hypertension on recent ECHO at [facility] CXR as above Was on lasix 20 mg every 48 hours Received IV diuretics Monitor I/Os, daily weight ECHO:EF:65-70%, Small LV, Mild TR Euvolemic currently Appreciate Cardiology Input Continue home diuretics Partially treated complicated UTI ESBL E. 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 Mare Rodriguez. (contact #[phone]) Case management following Subjective Patient is seen and examined at bedside More compliant with BiPAP overnight and this morning More oriented today per RN Could not obtain much history while on BiPAP Desaturates easily off BiPAP Discussed with palliative care today No family at bedside Vitals stable on BiPAP Review of Systems Review of Systems: All systems reviewed & are unremarkable except as noted in HPI & below Physical Exam Physical Exam: Physical Exam: Vitals signs as noted above General Appearance:Elderly, no apparent distress Head: normocephalic, Atraumatic Eyes: normal inspection, EOMI, +Left Subconjunctival Hemorrhage Neck: supple, Trachea midline Respiratory/Chest: Decreased breath sounds on left , CTA Cardiovascular: S1, S2, No murmur Abdomen/GI:Soft, Non tender, Bowel sounds present Extremities/Musculoskelatal:normal inspection, 1+ B/L pedal edema Neurologic/Psych:grossly no focal neurological deficits Skin: normal color, warm Results & Data Vital Signs (Past 12 Hours) Vital Signs Temp Pulse Pulse Resp BP BP Pulse Ox 04/17/19 15:42 37.1 C 114 H 18 115/67 93 04/17/19 14:05 99 04/17/19 12:04 36.0 C L 87 26 H 135/81 98 04/17/19 07:38 36.9 C 103 H 28 H 145/72 H 92 04/17/19 07:30 96 04/17/19 07:14 109 H 22 98 04/17/19 07:13 109 H 22 98
[2019-04-17] MEDS: MELATONIN 10 MG PO SCH (20:55)
[2019-04-17] MEDS ORDERED: Nursing to Pharmacy Communication ONE (23:58)
[2019-04-18] MEDS: IPRATROPIUM BROMIDE NEB SOLN 0.02% 2.5 ML VIAL INH SCH ×4 (01:27→19:00)
[2019-04-18] MEDS: LEVALBUTEROL 1.25MG/0.5ML NEB INH SCH ×4 (01:28→19:00)
[2019-04-18] MEDS: HEPARIN SOD 5,000 UNIT/0.5 ML VIAL SQ SCH ×3 (05:53→21:39)
[2019-04-18 07:01] LABS: Est GFR (African American) 38.9; Est GFR (Non-African American) 33.5
[2019-04-18] MEDS: POLYETHYLENE (MIRALAX) 17 GM PACK PO SCH (08:37)
[2019-04-18] MEDS: ALLOPURINOL 100 MG TAB PO SCH ×2 (08:37→21:41)
[2019-04-18] MEDS: ATORVASTATIN 40 MG TAB PO SCH (08:37)
[2019-04-18] MEDS: ASPIRIN 81 MG ECTAB PO SCH (08:37)
[2019-04-18] MEDS: DOCUSATE SODIUM 100 MG CAP PO SCH ×2 (08:37→21:34)
[2019-04-18] MEDS: CEROVITE ADV FORMULA TAB PO SCH (08:37)
[2019-04-18] MEDS: PANTOprazole 40 MG TAB PO SCH (08:37)
[2019-04-18] MEDS: CITALOPRAM 20 MG TAB PO SCH (08:37)
[2019-04-18] MEDS: METOPROLOL TARTRATE 50 MG TAB PO SCH ×2 (08:38→21:36)
[2019-04-18] MEDS: INSULIN ASPART 100 UNITS/ML 3 ML PEN SC SCH ×4 (08:39→21:38)
--- NOTE | 2019-04-18 12:50 | Pulmonology Progress Note ---
Date of Service April 18, 2019 Assessment & Plan (1) Acute on chronic respiratory failure with hypoxia and hypercapnia: Patient still needs encouragement to wear BiPAP but she has been doing better with it the last 2 days. She reportedly wore the BiPAP until 4 AM. When the took the BiPAP off, nasal cannula was not sufficient to maintain her oxygenation. She needed oxygen mask. We will continue nebulizer treatments as present particularly in light of her improvement. Nursing staff reports it is likely the patient will be going home with hospice care. We will see her again only if specifically requested. (2) Elevated diaphragm: Subjective The patient is more alert today and less agitated. She admits to having shortness of breath when she moves around or does anything. She denies any cough. She denies chest pains. Her left eye is somewhat hemorrhagic today but she denies any pain in the eye or visual complaints. Review of Systems Review of Systems: As above Physical Exam Physical Exam: The patient is a 83-year-old female who is awake alert and cooperative. She did not appear in distress. Temperature is 36.7. She is noted to have left conjunctival hemorrhage. Cardiac rate 83/min. Rhythm is regular. Blood pressure 104/61. Lung wilde were clear. Breath sounds decreased particularly on the left lower one half.. Respiratory rate 22 but not labored. Saturation 97% on oxygen mask 5 L earlier today, currently she is on nasal cannula. Extremity shows mild edema bilaterally. Results & Data Vital Signs (Past 12 Hours) Vital Signs Temp Pulse Pulse Resp BP BP Pulse Ox 04/18/19 11:08 36.7 C 83 22 104/61 97 04/18/19 10:53 90 04/18/19 07:22 36.7 C 96 H 22 118/64 92 04/18/19 06:45 93 H 20 96 04/18/19 05:13 36.9 C 83 18 110/70 96 04/18/19 01:30 75 22 99 04/18/19 01:29 75 22 99 Laboratory Results Blood sugar today as high as 138. Creatinine today 1.43. Prior creatinine on the was 1.51.
--- NOTE | 2019-04-18 15:03 | Palliative Care Progress Note ---
Date of Service April 18, 2019 Assessment & Plan (1) Goals of care, counseling/discussion: -Saw patient first this morning. She was on 5LNC eating lunch and feeling okay. No respiratory distress. Oxygen saturation >90. When I first walked in, she had taken her mask off and was on room air, saturation was in 70s. She recovered quickly when I placed the nasal cannula. -Patient received Benadryl last evening and states she slept well. She did wear the bipap throughout the night and per the notes tolerated it well. -Patient's daughter/POA, Mare, has asked that I come by again this afternoon to complete a POLST form and speak with patient's about patient's condition and tenuous health condition. -Returned to patient's room this afternoon and met with patient, her daughter/POWilliam Rodriguez, and Brigitte. Patient is awake but drowsy and falling asleep during my visit. She is forgetful with periods of confusion, as noted by the family as well. -I spoke with patient's outside of room in private. Discussed patient's medical condition and poor long-term prognosis. He verbalized understanding. He confirmed that he does not want patient to have heroic life-prolonging measures. His goal is for patient to be at home and be comfortable. -We returned to patient's room and continued discussion about goals of care and filled out a POLST form. At this point, patient's family would like her to go home with hospice and not return to the hospital. -They would like patient to have bipap at home for comfort. manager sales and marketing will set up bipap for home and will also set up hospice care. -Continue all of patient's current medications per family's wishes. Could probably discontinue some unnecessary things such as MVI and statin. Continue insulin and BSGs. -Family may choose to continue giving Benadryl at night for sleep if sleep is an issue. Several times I stressed the importance of patient wearing the bipap during sleep. -POLST form completed as follows: DNR, comfort measures only, abx with comfort as the goal, no artificial hydration/nutrition. -Again, case management is working to get everything set up for home. -Thank you again for consulting me on this [place] patient and her family. (2) Acute on chronic respiratory failure with hypoxia and hypercapnia: (3) Elevated diaphragm: (4) UTI (urinary tract infection): (5) RHF (right heart failure): Subjective Saw patient first this morning around 1100. She was awake and alert in bed. She did not remember me at all from yesterday, despite me being in the room multiple times and for over an hour with her and her daughter. Review of Systems Review of Systems: Denies pain, SOB, CP or N/V. Does c/o weakness Physical Exam Constitutional: + ill appearing (deconditioned) ENMT: external ear and nose normal, oropharynx normal Neck: normal visual inspection Respiratory: Auscultation: + diminished lung sounds (air exchange extremely diminished) Cardiovascular: Rate/Rhythm: regular rate and regular rhythm Gastrointestinal (Abdomen): Inspection/Auscultation: abdomen normal to inspection and normal bowel sounds Percussion/Palpation: abdomen soft; abdomen nontender Neurologic: moves all extremities and awake Psychiatric: Orientation: alert, oriented to person and oriented to place; + not oriented to time Insight: + poor insight Results & Data Vital Signs (Past 12 Hours) Vital Signs Temp Pulse Resp BP BP Pulse Ox 04/18/19 13:52 95 H 22 95 04/18/19 11:08 36.7 C 83 22 104/61 97 04/18/19 10:53 90 04/18/19 07:22 36.7 C 96 H 22 118/64 92 04/18/19 06:45 93 H 20 96 04/18/19 05:13 36.9 C 83 18 110/70 96 PG Care Time/CCT Prolonged Care Time Prolonged Care Time: Yes Total Prolonged Care Time: 65 Time Spent Midlevel 65 minutes with >50% of time spent at bedside with patient and family discussing condition, GOC, prognosis, hospice, and POLST form.
--- NOTE | 2019-04-18 18:55 | Hospitalist Progress Note ---
Date of Service April 18, 2019 Assessment & Plan (1) Encephalopathy: Metabolic Encephalopathy: Confusion seems to be resolving Likely Multifactorial Acute on chronic hypoxemic, hypercapnic respiratory failure, delirium, could have underlying dementia Acute respiratory acidosis due to CO2 retention Pulmonary HTN Could have underlying ELIZABETH Non Complaint/Unable to tolerate BiPAP Head CT:Chronic small vessel ischemic change. No acute intracranial abnormality. CXR:Worsening lung aeration, which is very low on the current exam. Increasing congestive change and volume overload suspected. Less likely differential considerations include bronchitis or reactive airways disease. Elevated Diaphragm: Chronic--unknown etiology, ? paralysis. Contributing to decreased lung volumes Completed IV antibiotics Continue nebs Appreciate Pulmonary Input Initially not compliant with BiPAP use QHS Continue supplemental oxygen to titrate Sats 88-92% Patient's family understands the prognosis is very guarded. Appreciate Palliative Care/Neurology Input Continue BiPAP as tolerated, Nebs Family does not want any heroic measures if patient declines Plan to discharge on BiPAP at home for comfort Plan to transition to home with hospice services in place Appreciate palliative input Decompensated right-sided heart failure: resolved [place]monary [place] [facility] [place] Was on lasix 20 mg every 48 hours Received IV diuretics Monitor I/Os, daily weight ECHO:EF:65-70%, Small LV, Mild TR Euvolemic currently Appreciate Cardiology Input Continue home diuretics Partially treated complicated UTI ESBL E. 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 Mare Rodriguez. (contact #[phone]) Case management following Subjective Patient is seen and examined at bedside Patient is more alert and awake today Less confused today States having shortness of breath on minimal exertion Denies any chest pain, dizziness, nausea, abdominal pain, visual changes Desaturates easily off BiPAP Palliative care following Plan is to eventually transition to home with home hospice Plan to discharge on BiPAP at home for comfort Review of Systems Review of Systems: All systems reviewed & are unremarkable except as noted in HPI & below Physical Exam Physical Exam: Physical Exam: Vitals signs as noted above General Appearance:Elderly, no apparent distress Head: normocephalic, Atraumatic Eyes: normal inspection, EOMI, +Left Subconjunctival Hemorrhage Neck: supple, Trachea midline Respiratory/Chest: Decreased breath sounds on left , CTA Cardiovascular: S1, S2, No murmur Abdomen/GI:Soft, Non tender, Bowel sounds present Extremities/Musculoskelatal:normal inspection, 1+ B/L pedal edema Neurologic/Psych:grossly no focal neurological deficits Skin: normal color, warm Results & Data Vital Signs (Past 12 Hours) Vital Signs Temp Pulse Resp BP BP Pulse Ox 04/18/19 16:11 36.8 C 99 H 19 95/55 L 95 04/18/19 13:52 95 H 22 95 04/18/19 11:08 36.7 C 83 22 104/61 97 04/18/19 10:53 90 04/18/19 07:22 36.7 C 96 H 22 118/64 92 Laboratory Results BMP 04/18/19 05:53 Creatinine 1.43 H
[2019-04-18] MEDS: MELATONIN 10 MG PO SCH (21:38)
[2019-04-19] MEDS: IPRATROPIUM BROMIDE NEB SOLN 0.02% 2.5 ML VIAL INH SCH ×4 (01:32→18:58)
[2019-04-19] MEDS: LEVALBUTEROL 1.25MG/0.5ML NEB INH SCH ×4 (01:33→18:58)
[2019-04-19] MEDS: HEPARIN SOD 5,000 UNIT/0.5 ML VIAL SQ SCH ×3 (06:12→20:33)
[2019-04-19] MEDS: DOCUSATE SODIUM 100 MG CAP PO SCH ×2 (08:52→20:30)
[2019-04-19] MEDS: INSULIN ASPART 100 UNITS/ML 3 ML PEN SC SCH ×4 (08:52→20:37)
[2019-04-19] MEDS: ALLOPURINOL 100 MG TAB PO SCH ×2 (08:52→20:33)
[2019-04-19] MEDS: CITALOPRAM 20 MG TAB PO SCH (08:53)
[2019-04-19] MEDS: FUROSEMIDE 20 MG TAB PO SCH (08:53)
[2019-04-19] MEDS: ASPIRIN 81 MG ECTAB PO SCH (08:53)
[2019-04-19] MEDS: ATORVASTATIN 40 MG TAB PO SCH (08:53)
[2019-04-19] MEDS: METOPROLOL TARTRATE 50 MG TAB PO SCH ×2 (08:53→20:30)
[2019-04-19] MEDS: PANTOprazole 40 MG TAB PO SCH (09:08)
[2019-04-19] MEDS: CEROVITE ADV FORMULA TAB PO SCH (09:08)
[2019-04-19] MEDS: POLYETHYLENE (MIRALAX) 17 GM PACK PO SCH (09:08)
--- NOTE | 2019-04-19 13:34 | Discharge Summary ---
Date of Service April 19, 2019 Admission HPI Per Admitting Provider History obtained from patient, family, and records. Limited history from patient secondary to disorientation. Medical history significant for chronic respiratory failure on home O2, right- sided heart failure as per records, pulmonary hypertension on TTE November 2018, hypertension, CAD as per records, CRI (baseline creatinine 1.6), chronic anemia (baseline hemoglobin 9-10),, DM 2 on oral medications, ESBL E. coli UTI ongoing Invanz Rx, history subdural hematoma as per records. Recent confinement [facility] every 2018 for bilateral femoral fracture fractures secondary to mechanical fall status post surgery. Postop course complicated by hypotension, respiratory failure, pulmonary congestion. TTE during confinement showed EF of 70%. Hyperdynamic LV contractility with mid cavity obliteration and a late peaking gradient of 55 mmHg. RV systolic function qualitatively normal. Severe pulmonary hypertension present estimated PASP 65 mmHg. Patient was oxygen dependent upon discharge to [facility] for rehab. 2 weeks ago, patient noted by family to be confused. Patient prescribed oral antibiotic for UTI which later grew ESBL E. coli. Patient later switched to 7- day course Invanz a few days ago. The last 2 days, patient noted to be more confused than usual as per daughter. Increasing O2 requirement as per patient's daughter. No unusual cough symptoms as per daughter. Patient denies chest pain, S OB. Patient fell at home today landing on her right side. No head trauma. Decreased responsiveness noted. Patient brought to the emergency room for further evaluation. 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 Discharge Data Allergies Allergy/AdvReac Type Severity Reaction Status Date / Time codeine AdvReac Intermediate Neuro Verified 04/12/19 22:45 Changes haloperidol [From Haldol] AdvReac Intermediate confusion Verified 04/13/19 09:15 tramadol AdvReac Intermediate confusion Verified 04/13/19 09:15 morphine AdvReac confusion Verified 04/13/19 09:15 Consultations 04/13/19 01:00 ED Decision to Admit Stat 04/13/19 02:55 Consult Cardiology Routine Consult Case Management - Discharge Planning Routine Consult Pulmonology Routine 04/16/19 15:11 Consult Neurology Routine 04/16/19 15:50 Consult Palliative Care Routine Ordered Studies 04/12/19 21:51 CT head/brain wo con Stat Hospital Course (1) Encephalopathy: Metabolic Encephalopathy: Confusion seems to be resolving Likely Multifactorial Acute on chronic hypoxemic, hypercapnic respiratory failure, delirium, could have underlying dementia Acute respiratory acidosis due to CO2 retention Pulmonary HTN Could have underlying ELIZABETH Non Complaint/Unable to tolerate BiPAP Head CT:Chronic small vessel ischemic change. No acute intracranial abnormality. CXR:Worsening lung aeration, which is very low on the current exam. Increasing congestive change and volume overload suspected. Less likely differential considerations include bronchitis or reactive airways disease. Elevated Diaphragm: Chronic--unknown etiology, ? paralysis. Contributing to decreased lung volumes Completed IV antibiotics Continue nebs Appreciate Pulmonary Input Initially not compliant with BiPAP use QHS Continue supplemental oxygen to titrate Sats 88-92% Patient's family understands the prognosis is very guarded. Appreciate Palliative Care/Neurology Input Continue BiPAP as tolerated, Nebs Family does not want any heroic measures if patient declines Plan to discharge on BiPAP at home for comfort Plan to transition to home with hospice services in place Appreciate palliative input Decompensated right-sided heart failure: resolved Pulmonary hypertension on recent ECHO at [facility] [place] [place] CXR as above Was on lasix 20 mg every 48 hours Received IV diuretics Monitor I/Os, daily weight ECHO:EF:65-70%, Small LV, Mild TR Euvolemic currently Appreciate Cardiology Input Continue home diuretics Partially treated complicated UTI ESBL E. 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 Mare Rodriguez. (contact #[phone]) Case management following Discharge Plan Discharge Items Reason For Visit: RESP FAILURE Prescriptions: No Action citalopram 10 mg Tablet 10 mg PO DAILY RF: 0 hydralazine 25 mg Tablet 25 mg PO TID RF: 0 cranberry conc-ascorbic acid 140-100 mg Capsule 1 cap PO DAILY RF: 0 allopurinol 100 mg Tablet 100 mg PO BID RF: 0 pantoprazole 40 mg Tablet,Delayed Release (Dr/Ec) 40 mg PO DAILY RF: 0 metoprolol tartrate 50 mg Tablet 50 mg PO BID RF: 0 docusate sodium [DOK] 100 mg Capsule 100 mg PO BID RF: 0 furosemide [Lasix] 20 mg Tablet 20 mg PO Q2D RF: 0 glipizide 5 mg Tablet 2.5 mg PO BIDM RF: 0 acetaminophen [Tylenol] 325 mg Capsule 650 mg PO Q8H RF: 0 magnesium oxide 400 mg magnesium Tablet 400 mg PO DAILY RF: 0 atorvastatin 40 mg Tablet 40 mg PO DAILY RF: 0 cyanocobalamin (vitamin B-12) [Vitamin B-12] 1,000 mcg Tablet 1,000 mcg PO DAILY RF: 0 aspirin 81 mg Tablet,Chewable 81 mg PO DAILY RF: 0 polyethylene glycol 3350 17 gram/dose Powder 17 g PO DAILY RF: 0 diclofenac sodium [Voltaren] 1 % Gel 2 g TOPICAL QID RF: 0 Women's One Daily 18 mg iron-400 mcg-500 mg Ca Tablet 1 tab PO DAILY RF: 0 Caltrate 600-D Plus Minerals 600 mg calcium- 800 unit-40 mg Tablet,Chewable 1 tab PO BID RF: 0 Admission Data Admit Date/Time: 04/13/19 01:39 Attending Provider: Ash Weiner Admit Provider: Mitch Cardoza Primary Care Provider: Jonathan Marshall V. Other Providers: Mitch Cardoza ; Dagoberto López Jeffrey A. ; Shivam Pineda ; Coleen Ferro Service: Telemetry
--- NOTE | 2019-04-19 15:19 | Hospitalist Progress Note ---
Date of Service April 19, 2019 Assessment & Plan (1) Encephalopathy: Metabolic Encephalopathy: Confusion seems to be resolving Likely Multifactorial Acute on chronic hypoxemic, hypercapnic respiratory failure, delirium, could have underlying dementia Acute respiratory acidosis due to CO2 retention Pulmonary HTN Could have underlying ELIZABETH Non Complaint/Unable to tolerate BiPAP Head CT:Chronic small vessel ischemic change. No acute intracranial abnormality. CXR:Worsening lung aeration, which is very low on the current exam. Increasing congestive change and volume overload suspected. Less likely differential considerations include bronchitis or reactive airways disease. Elevated Diaphragm: Chronic--unknown etiology, ? paralysis. Contributing to decreased lung volumes Completed IV antibiotics Continue nebs Appreciate Pulmonary Input Initially not compliant with BiPAP use QHS Continue supplemental oxygen to titrate Sats 88-92% Patient's family understands the prognosis is very guarded. Appreciate Palliative Care/Neurology Input Continue BiPAP as tolerated, [facility] Family does not want any heroic measures if patient declines Plan to discharge on BiPAP at home for comfort Palliative Care on board Plan to discharge home when hospice services arranged Continue BiPAP nightly, and as needed Decompensated right-sided heart failure: resolved Pulmonary hypertension on recent ECHO at [facility] [place] CXR as above Was on lasix 20 mg every 48 hours Received IV diuretics Monitor I/Os, daily weight ECHO:EF:65-70%, Small LV, Mild TR Euvolemic currently Appreciate Cardiology Input Continue home diuretics Partially treated complicated UTI ESBL E. 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 Mare Rodriguez. (contact #[phone]) Case management following Subjective Patient is seen and examined at bedside Patient is intermittently confused Currently on nasal cannula Discussed with family at bedside No new complaints Denies any chest pain, SOB, dizziness, nausea, abdominal pain, visual changes Plan is to eventually transition to home with home hospice Plan to discharge on BiPAP at home for comfort Review of Systems Review of Systems: All systems reviewed & are unremarkable except as noted in HPI & below Physical Exam Physical Exam: Physical Exam: Vitals signs as noted above General Appearance:Elderly, no apparent distress Head: normocephalic, Atraumatic Eyes: normal inspection, EOMI, +Left Subconjunctival Hemorrhage Neck: supple, Trachea midline Respiratory/Chest: Decreased breath sounds on left , CTA Cardiovascular: S1, S2, No murmur Abdomen/GI:Soft, Non tender, Bowel sounds present Extremities/Musculoskelatal:normal inspection, 1+ B/L pedal edema Neurologic/Psych:grossly no focal neurological deficits Skin: normal color, warm Results & Data Vital Signs (Past 12 Hours) Vital Signs Temp Pulse Pulse Resp BP BP Pulse Ox 04/19/19 14:17 86 17 99 04/19/19 14:16 85 17 99 04/19/19 12:03 81 18 117/67 96 04/19/19 08:00 04/19/19 07:06 109 H 19 96 04/19/19 06:57 37.4 C 99 H 22 119/72 92 04/19/19 04:00 37.2 C 91 H 18 114/63 99 Pulse Ox Pulse Ox 04/19/19 14:17 04/19/19 14:16 04/19/19 12:03 04/19/19 08:00 95 95 04/19/19 07:06 04/19/19 06:57 04/19/19 04:00
[2019-04-19] MEDS: MELATONIN 10 MG PO SCH (20:32)
[2019-04-19] MEDS ORDERED: diphenhydrAMINE HCl 12.5 MG/5 ML UDC PO SCH (21:00)
[2019-04-20] MEDS: LEVALBUTEROL 1.25MG/0.5ML NEB INH SCH ×2 (01:44→07:00)
[2019-04-20] MEDS: IPRATROPIUM BROMIDE NEB SOLN 0.02% 2.5 ML VIAL INH SCH ×2 (01:44→07:00)
[2019-04-20] MEDS: HEPARIN SOD 5,000 UNIT/0.5 ML VIAL SQ SCH (06:03)
[2019-04-20] MEDS: DOCUSATE SODIUM 100 MG CAP PO SCH (08:26)
[2019-04-20] MEDS: CITALOPRAM 20 MG TAB PO SCH (08:26)
[2019-04-20] MEDS: ASPIRIN 81 MG ECTAB PO SCH (08:26)
[2019-04-20] MEDS: POLYETHYLENE (MIRALAX) 17 GM PACK PO SCH (08:27)
[2019-04-20] MEDS: METOPROLOL TARTRATE 50 MG TAB PO SCH (08:27)
[2019-04-20] MEDS: ATORVASTATIN 40 MG TAB PO SCH (08:27)
[2019-04-20] MEDS: PANTOprazole 40 MG TAB PO SCH (08:28)
[2019-04-20] MEDS: CEROVITE ADV FORMULA TAB PO SCH (08:28)
[2019-04-20] MEDS: ALLOPURINOL 100 MG TAB PO SCH (08:28)
[2019-04-20] MEDS: INSULIN ASPART 100 UNITS/ML 3 ML PEN SC SCH ×2 (08:30→12:30)
--- NOTE | 2019-04-20 13:35 | Hospitalist Progress Note ---
Date of Service April 20, 2019 Assessment & Plan (1) Encephalopathy: Metabolic Encephalopathy: Confusion seems to be resolving Likely Multifactorial Acute on chronic hypoxemic, hypercapnic respiratory failure, delirium, could have underlying dementia Acute respiratory acidosis due to CO2 retention Pulmonary HTN Could have underlying ELIZABETH Non Complaint/Unable to tolerate BiPAP Head CT:Chronic small vessel ischemic change. No acute intracranial abnormality. CXR:Worsening lung aeration, which is very low on the current exam. Increasing congestive change and volume overload suspected. Less likely differential considerations include bronchitis or reactive airways disease. Elevated Diaphragm: Chronic--unknown etiology, ? paralysis. Contributing to decreased lung volumes Completed IV antibiotics Continue [facility] Appreciate Pulmonary Input Initially not compliant with BiPAP use QHS Continue supplemental oxygen to titrate Sats 88-92% Patient's family understands the prognosis is very guarded. Appreciate Palliative Care/Neurology Input Continue BiPAP as tolerated, [facility] Family does not want any heroic measures if patient declines Plan to discharge on BiPAP at home for comfort Palliative Care on board Plan to discharge home when hospice services Continue BiPAP nightly, and as needed Continue current management Continues to be confused intermittently Decompensated right-sided heart failure: resolved Pulmonary [place] [facility] [place] Was on lasix 20 mg every 48 hours Received IV diuretics Monitor I/Os, daily weight ECHO:EF:65-70%, Small LV, Mild TR Euvolemic currently Appreciate Cardiology Input Continue home diuretics Partially treated complicated UTI ESBL E. 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 Mare Rodriguez. (contact #[phone]) Case management following Subjective Patient is seen and examined at bedside Has not used BiPAP overnight as recommended Continues to be confused intermittently Oriented to person, place. Denies any chest pain, SOB, dizziness, nausea, abdominal pain, visual changes Plan is to eventually transition to home with home hospice upon discharge Discussed with Case management Review of Systems Review of Systems: Unobtainable due to cognitive status Physical Exam Physical Exam: Physical Exam: Vitals signs as noted above General Appearance:Elderly, no apparent distress Head: normocephalic, Atraumatic Eyes: normal inspection, EOMI, +Left Subconjunctival Hemorrhage Neck: supple, Trachea midline Respiratory/Chest: Decreased breath sounds on left , CTA Cardiovascular: S1, S2, No murmur Abdomen/GI:Soft, Non tender, Bowel sounds present Extremities/Musculoskelatal:normal inspection, 1+ B/L pedal edema Neurologic/Psych:grossly no focal neurological deficits Skin: normal color, warm Results & Data Vital Signs (Past 12 Hours) Vital Signs Temp Pulse Pulse Resp BP Pulse Ox Pulse Ox 04/20/19 11:38 36.2 C L 89 123/69 94 04/20/19 11:30 94 H 24 92 04/20/19 08:00 93 04/20/19 07:30 36.6 C 106 H 22 166/91 H 96 04/20/19 07:02 110 H 20 93 04/20/19 01:45 87 20 99
--- NOTE | 2019-04-20 13:40 | Discharge Summary ---
Date of Service April 20, 2019 Admission HPI Per Admitting Provider Chief Complaint: Worsening hypoxemia as per records Primary Care Provider: Jonathan Marshall DO History obtained from patient, family, and records. Limited history from patient secondary to disorientation. Medical history significant for chronic respiratory failure on home O2, right- sided heart failure as per records, pulmonary hypertension on TTE November 2018, hypertension, CAD as per records, CRI (baseline creatinine 1.6), chronic anemia (baseline hemoglobin 9-10),, DM 2 on oral medications, ESBL E. coli UTI ongoing Invanz Rx, history subdural hematoma as per records. Recent confinement [facility] every 2018 for bilateral femoral fracture fractures secondary to mechanical fall status post surgery. Postop course complicated by hypotension, respiratory failure, pulmonary congestion. TTE during confinement showed EF of 70%. Hyperdynamic LV contractility with mid cavity obliteration and a late peaking gradient of 55 mmHg. RV systolic function qualitatively normal. Severe pulmonary hypertension present estimated PASP 65 mmHg. Patient was oxygen dependent upon discharge to [facility] for rehab. 2 weeks ago, patient noted by family to be confused. Patient prescribed oral antibiotic for UTI which later grew ESBL E. coli. Patient later switched to 7- day course Invanz a few days ago. The last 2 days, patient noted to be more confused than usual as per daughter. Increasing O2 requirement as per patient's daughter. No unusual cough symptoms as per daughter. Patient denies chest pain, S OB. Patient fell at home today landing on her right side. No head trauma. Decreased responsiveness noted. Patient brought to the emergency room for further evaluation. Admission Exam Per Admitting Provider GENERAL: disoriented, hard of hearing, respiratory distress SKIN: Pallor , warm HEENT: Pale palpebral conjunctivae, no ptosis, dry buccal mucosa, nasal cannula in place NECK : Supple, no tenderness CHEST : Bibasilar rales , no tenderness HEART : RRR, no obvious murmurs ABDOMEN: Some distention, nontender EXTREMITIES : Bilateral LE swelling, no LE tenderness, no other conspicuous deformities noted NEUROLOGIC : Disoriented, hard of hearing, no facial asymmetry, no other gross focality Principal Diagnosis Discharge Information Discharge Diagnosis Acute Metabolic Encephalopathy Acute on chronic hypoxemic, hypercapnic respiratory failure Decompensated right-sided heart failure Discharge Goals Decrease discomfort,Improve function,Improve nutritional statu Discharge Activity Limitations Resume your previous activity Discharge Data Allergies Allergy/AdvReac Type Severity Reaction Status Date / Time codeine AdvReac Intermediate Neuro Verified 04/12/19 22:45 Changes haloperidol [From Haldol] AdvReac Intermediate confusion Verified 04/13/19 09:15 tramadol AdvReac Intermediate confusion Verified 04/13/19 09:15 morphine AdvReac confusion Verified 04/13/19 09:15 Consultations 04/13/19 01:00 ED Decision to Admit Stat 04/13/19 02:55 Consult Cardiology Routine Consult Case Management - Discharge Planning Routine Consult Pulmonology Routine 04/16/19 15:11 Consult Neurology Routine 04/16/19 15:50 Consult Palliative Care Routine Procedures Performed CT Head; Chronic small vessel ischemic change. No acute intracranial abnormality. CXR: 1. Worsening lung aeration, which is very low on the current exam. 2. Increasing congestive change and volume overload suspected. Less likely differential considerations include bronchitis or reactive airways disease. Ordered Studies 04/12/19 21:51 CT head/brain wo con Stat Hospital Course (1) Encephalopathy: Metabolic Encephalopathy: Confusion seems to be resolving Likely Multifactorial Acute on chronic hypoxemic, hypercapnic respiratory failure, delirium, could have underlying dementia Acute respiratory acidosis due to CO2 retention Pulmonary HTN Could have underlying ELIZABETH Non Complaint/Unable to tolerate BiPAP Head CT:Chronic small vessel ischemic change. No acute intracranial abnormality. CXR:Worsening lung aeration, which is very low on the current exam. Increasing congestive change and volume overload suspected. Less likely differential con siderations include bronchitis or reactive airways disease. Elevated Diaphragm: Chronic--unknown etiology, ? paralysis. Contributing to decreased lung volumes Completed IV antibiotics Continue nebs Appreciate Pulmonary Input Initially not compliant with BiPAP use QHS Continue supplemental oxygen to titrate Sats 88-92% Patient's family understands the prognosis is very guarded. Appreciate Palliative Care/Neurology Input Continue BiPAP as tolerated, [facility] Family does not want any heroic measures if patient declines Plan to discharge on BiPAP at home for comfort Palliative Care on board Plan to discharge home when hospice services Continue BiPAP nightly, and as needed Continue current management Continues to be confused intermittently Decompensated right-sided heart failure: resolved Pulmonary hypertension on recent ECHO at [facility] CXR as above Was on lasix 20 mg every 48 hours Received IV diuretics Monitor I/Os, daily weight ECHO:EF:65-70%, Small LV, Mild TR Euvolemic currently Appreciate Cardiology Input Continue home diuretics Partially treated complicated UTI ESBL E. 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 Mare Rodriguez. (contact #[phone]) Case management following Total Time Total Time Spent Total Time Spent (In Minutes): 44 minutes Total Time Includes: Examination of the Patient, Discharge Planning, Medication Reconciliation, Communication With Other Providers and Other Discharge Plan Discharge Items Patient Disposition: Hospice - Home Reason For Visit: RESP FAILURE Discharge Diagnosis: Acute Metabolic Encephalopathy Acute on chronic hypoxemic, hypercapnic respiratory failure Decompensated right-sided heart failure Discharge Goals: Decrease discomfort, Improve function and Improve nutritional status Activity: Resume your previous activity Exercise/Sports: Gradually increase as tolerated Non-emergency contact: Primary Care Provider Call non-emergency contact if: you have any medication questions, your symptoms worsen, your pain is not controlled, your pain is worsening, your pain is unusual for you, your pain is concerning for you and you have a fever Follow-up/Referrals: Jonathan Marshall V., [Primary Care Provider] - Diet: Carb Consistent or DM2 Addtl Provider Instructions: Follow-up with your primary care physician Dr. Marshall in 1 week Follow-up with your product specialist as needed Continue using BiPAP at bedtime, and as needed Seek immediate medical attention if your symptoms reoccur or worsen Prescriptions: Continued citalopram 10 mg Tablet 10 mg PO DAILY RF: 0 hydralazine 25 mg Tablet 25 mg PO TID RF: 0 cranberry conc-ascorbic acid 140-100 mg Capsule 1 cap PO DAILY RF: 0 allopurinol 100 mg Tablet 100 mg PO BID RF: 0 pantoprazole 40 mg Tablet,Delayed Release (Dr/Ec) 40 mg PO DAILY RF: 0 metoprolol tartrate 50 mg Tablet 50 mg PO BID RF: 0 docusate sodium [DOK] 100 mg Capsule 100 mg PO BID RF: 0 furosemide [Lasix] 20 mg Tablet 20 mg PO Q2D RF: 0 glipizide 5 mg Tablet 2.5 mg PO BIDM RF: 0 acetaminophen [Tylenol] 325 mg Capsule 650 mg PO Q8H RF: 0 magnesium oxide 400 mg magnesium Tablet 400 mg PO DAILY RF: 0 atorvastatin 40 mg Tablet 40 mg PO DAILY RF: 0 cyanocobalamin (vitamin B-12) [Vitamin B-12] 1,000 mcg Tablet 1,000 mcg PO DAILY RF: 0 aspirin 81 mg Tablet,Chewable 81 mg PO DAILY RF: 0 polyethylene glycol 3350 17 gram/dose Powder 17 g PO DAILY RF: 0 diclofenac sodium [Voltaren] 1 % Gel 2 g TOPICAL QID RF: 0 Women's One Daily 18 mg iron-400 mcg-500 mg Ca Tablet 1 tab PO DAILY RF: 0 Caltrate 600-D Plus Minerals 600 mg calcium- 800 unit-40 mg Tablet,Chewable 1 tab PO BID RF: 0 Stand-Alone Forms: [facility] Discharge Orders: Discharge Order (Routine); Ordered 04/20/19 Ordered By: Ash Weiner Admission Data Admit Date/Time: 04/13/19 01:39 Attending Provider: Ash Weiner Admit Provider: Mitch Cardoza Primary Care Provider: Jonathan Marshall V. Other Providers: Mitch Cardoza ; Dagoberto López Jeffrey A. ; Shivam Pineda ; Coleen Ferro Service: Telemetry Other Interventions: Discharge Summary Assessment (RN) Last Done: 04/20/19 12:00 Pending Studies at Discharge: No DC Date/Time DO NOT enter until pt leaves facility: 04/20/19 14:15
== END 2019-04-20 14:15 | disposition hospice, home (50) | DRG 291 ==
LOC: ED 21:06 → 2S 04-13 01:39